=== PATIENT | female | born 1940 | race Caucasian/White ===

== ENCOUNTER 2019-10-09 06:22 | Inpatient (IN) | payer MEDICARE ==
[2019-10-09] MEDS ORDERED: ACETAMINOPHEN TAB 325 MG TAB PO STA (06:26)
[2019-10-09] MEDS ORDERED: SODIUM CHLORIDE 0.9% 500 ML 500 ML IV ONE ×4 (06:26→10:31)
[2019-10-09] MEDS ORDERED: IBUPROFEN 600 MG TAB PO STA (06:26)
[2019-10-09] MEDS ORDERED: IPRATROPIUM-ALBUTEROL 3 ML NEB INHALATION STA (06:27)
[2019-10-09] MEDS ORDERED: MAGNESIUM SULFATE-D5W PMX 1 GM in DEXTROSE/WATER 1 100ML.BAG IVPB ONE (06:28)
--- NOTE | 2019-10-09 06:29 | ED ---
SOB HPI <Kirsten Saunders P - Last Filed: 10/09/19 07:00> <Nahed Machado - Last Filed: 10/09/19 07:41> - General Chief Complaint: Shortness of Breath Stated Complaint: Difficulty breathing Time Seen by Provider: 10/09/19 06:24 - History of Present Illness Initial Comments: 79-year-old female presenting today for chief complaint of shortness of breath increasing x 2 days. History obtained from patient. Limited secondary to patient's dyspnea. Patient states she was short of breath with increased cough, and overall unwell feeling/fatigue. She states she feels warm. Febrile on EMS arrival. Patient denies leg swelling, chest or back pain. Denies nausea, vomiting, diarrhea. Patient was given solumedrol 125mg and 2 duoneb treatments prior to arrival. EMS states patient appeared diaphoretic pale, with increased work of breathing after 2nd breathing treatment (1duoneb, 1 albuterol treatemtn) and patient was placed on CPaP wtih improvement of respiration rate. On arrival patient BP stable, however HR elevated, febrile. Patient normally on 2-3L home oxygen but was no on oxygen when EMS arrived, 85% on RA. (Nahed Machado) - Related Data Allergies Allergy/AdvReac Type Severity Reaction Status Date / Time Penicillins Allergy Unknown Verified 10/09/19 07:38 Review of Systems ROS Other: All systems not noted in ROS Statement are negative. <Kirsten Saunders P - Last Filed: 10/09/19 07:00> ROS Other: All systems not noted in ROS Statement are negative. <Nahed Machado - Last Filed: 10/09/19 07:41> ROS Statement: Those systems with pertinent positive or pertinent negative responses have been documented in the HPI. General Exam <Nahed Machado - Last Filed: 10/09/19 07:41> - General Exam Comments Initial Comments: General: The patient is awake and alert, appears short of breath, increased respiration rate with pursed lips Eye: +3mm pupils are equal, round and reactive to light, extra-ocular movements are intact. No nystagmus. There is normal conjunctiva bilaterally. No signs of icterus. Ears, nose, mouth and throat: There are moist mucous membranes and no oral l esions. Neck: The neck is supple, there is no tenderness or JVD. Cardiovascular: There is a regular rate and rhythm. No murmur, rub or gallop is appreciated. Respiratory: Respiration labored, lung sounds diminished wtih expiratory wheeze, rhonchi. breath sounds present in all haile. No stridor. Gastrointestinal: Soft, non-distended, non-tender abdomen without masses or organomegaly noted. There is no rebound or guarding present. Musculoskeletal: Normal ROM, no tenderness. Strength 5/5. Sensation intact. Radial and DP pulses equal bilaterally 2+. Neurological: A&O x 3. CN II-XII intact grossly, There are no obvious motor or sensory deficits. Coordination appears grossly intact. Speech is normal. Skin: Skin is hot to touch and dry and no rashes or lesions are noted. No LE edema. Psychiatric: Cooperative (Nahed Machado) Course Vital Signs 10/09/19 10/09/19 10/09/19 06:24 06:39 06:54 Temperature 101.1 F H 99.6 F 100.1 F H Pulse Rate 137 H 128 H 121 H Respiratory 38 H 40 H 42 H Rate Blood Pressure 134/74 113/67 110/64 O2 Sat by Pulse 96 96 97 Oximetry 10/09/19 10/09/19 10/09/19 07:03 07:09 07:16 Temperature 100.9 F H Pulse Rate 121 H 120 H 118 H Respiratory 38 H Rate Blood Pressure 102/68 O2 Sat by Pulse 96 Oximetry Medical Decision Making - Lab Data Result diagrams: 10/09/19 06:26 10/09/19 06:26 <Kirsten Saunders - Last Filed: 10/09/19 07:00> - Lab Data Result diagrams: 10/09/19 06:26 10/09/19 06:26 <Nahed Machado - Last Filed: 10/09/19 07:41> - Medical Decision Making Personally saw and evaluated the patient upon arrival to the emergency department. Patient was noted to be in acute respiratory distress, she was transitioned from EMS CPAP to BiPAP. Full septic workup was initiated including influenza swab. Patient was found to be influence a positive with COPD exacerbation. Patient care was discussed with Dr. mittal accepts the admission. Patient will be admitted for COPD exacerbation, hypoxicrespiratory failure secondary to influenza A. (Kirsten Saunders) - Lab Data Lab Results 10/09/19 10/09/19 10/09/19 Range/Units 06:26 06:26 06:26 WBC 12.2 H (3.8-10.6) k/uL RBC 4.92 (3.80-5.40) m/uL Hgb 15.0 (11.4-16.0) gm/dL Hct 47.9 H (34.0-46.0) % MCV 97.4 (80.0-100.0) fL MCH 30.4 (25.0-35.0) pg MCHC 31.2 (31.0-37.0) g/dL RDW 14.4 (11.5-15.5) % Plt Count 237 (150-450) k/uL PT (9.0-12.0) sec INR (<1.2) APTT (22.0-30.0) sec Sodium 136 L (137-145) mmol/L Potassium 4.1 (3.5-5.1) mmol/L Chloride 96 L (98-107) mmol/L Carbon Dioxide 31 H (22-30) mmol/L Anion Gap 9 mmol/L BUN 31 H (7-17) mg/dL Creatinine 1.06 H (0.52-1.04) mg/dL Est GFR (CKD-EPI)AfAm 58 (>60 ml/min/1.73 sqM) Est GFR (CKD-EPI)NonAf 50 (>60 ml/min/1.73 sqM) Glucose 112 H (74-99) mg/dL Plasma Lactic Acid Telly 1.7 (0.7-2.0) mmol/L Calcium 9.1 (8.4-10.2) mg/dL Magnesium 1.5 L (1.6-2.3) mg/dL Total Bilirubin 0.6 (0.2-1.3) mg/dL AST 44 H (14-36) U/L ALT 20 (4-34) U/L Alkaline Phosphatase 72 (38-126) U/L Troponin I (0.000-0.034) ng/mL NT-Pro-B Natriuret Pep pg/mL Total Protein 7.7 (6.3-8.2) g/dL Albumin 4.1 (3.5-5.0) g/dL Influenza Type A RNA (Not Detectd) Influenza Type B (PCR) (Not Detectd) 10/09/19 10/09/19 10/09/19 Range/Units 06:26 06:26 06:26 WBC (3.8-10.6) k/uL RBC (3.80-5.40) m/uL Hgb (11.4-16.0) gm/dL Hct (34.0-46.0) % MCV (80.0-100.0) fL MCH (25.0-35.0) pg MCHC (31.0-37.0) g/dL RDW (11.5-15.5) % Plt Count (150-450) k/uL PT 10.4 (9.0-12.0) sec INR 1.0 (<1.2) APTT 26.1 (22.0-30.0) sec Sodium (137-145) mmol/L Potassium (3.5-5.1) mmol/L Chloride (98-107) mmol/L Carbon Dioxide (22-30) mmol/L Anion Gap mmol/L BUN (7-17) mg/dL Creatinine (0.52-1.04) mg/dL Est GFR (CKD-EPI)AfAm (>60 ml/min/1.73 sqM) Est GFR (CKD-EPI)NonAf (>60 ml/min/1.73 sqM) Glucose (74-99) mg/dL Plasma Lactic Acid Telly (0.7-2.0) mmol/L Calcium (8.4-10.2) mg/dL Magnesium (1.6-2.3) mg/dL Total Bilirubin (0.2-1.3) mg/dL AST (14-36) U/L ALT (4-34) U/L Alkaline Phosphatase (38-126) U/L Troponin I 0.013 (0.000-0.034) ng/mL NT-Pro-B Natriuret Pep 290 pg/mL Total Protein (6.3-8.2) g/dL Albumin (3.5-5.0) g/dL Influenza Type A RNA (Not Detectd) Influenza Type B (PCR) (Not Detectd) 10/09/19 Range/Units 06:26 WBC (3.8-10.6) k/uL RBC (3.80-5.40) m/uL Hgb (11.4-16.0) gm/dL Hct (34.0-46.0) % MCV (80.0-100.0) fL MCH (25.0-35.0) pg MCHC (31.0-37.0) g/dL RDW (11.5-15.5) % Plt Count (150-450) k/uL PT (9.0-12.0) sec INR (<1.2) APTT (22.0-30.0) sec Sodium (137-145) mmol/L Potassium (3.5-5.1) mmol/L Chloride (98-107) mmol/L Carbon Dioxide (22-30) mmol/L Anion Gap mmol/L BUN (7-17) mg/dL Creatinine (0.52-1.04) mg/dL Est GFR (CKD-EPI)AfAm (>60 ml/min/1.73 sqM) Est GFR (CKD-EPI)NonAf (>60 ml/min/1.73 sqM) Glucose (74-99) mg/dL Plasma Lactic Acid Telly (0.7-2.0) mmol/L Calcium (8.4-10.2) mg/dL Magnesium (1.6-2.3) mg/dL Total Bilirubin (0.2-1.3) mg/dL AST (14-36) U/L ALT (4-34) U/L Alkaline Phosphatase (38-126) U/L Troponin I (0.000-0.034) ng/mL NT-Pro-B Natriuret Pep pg/mL Total Protein (6.3-8.2) g/dL Albumin (3.5-5.0) g/dL Influenza Type A RNA Detected H (Not Detectd) Influenza Type B (PCR) Not Detected (Not Detectd) - EKG Data EKG Comments: Initial EKG obtained at 0626; ventricular rate 139 bpm, MA interval 150 ms, QRS duration 80 ms, QT/QTc to 74/416. Sinus tachycardia with noted effusion complexes. Right axis. No appreciated ST elevation or depression. EKG reviewed by my attending provider Dr. Saunders (Nahed Machado) Critical Care Time Critical Care Time: Yes Total Critical Care Time: 30 <Kirsten Saunders - Last Filed: 10/09/19 07:00> Critical Care Time: Critical Care Time Critical care time was exclusive of separately billable procedures and treating other patients and teaching time. Critical care was necessary to treat or prevent imminent or life-threatening deterioration. Given the critical condition in which the patient arrived, the patient was immediately assessed by myself and the nurse, and cardiac monitoring initiated due to the potential for rapid decompensation of the patient's clinical conditi on. During the course of the patients stay, I spent a considerable amount of time at the bedside performing serial re-evaluations of the patient's hemodynamic and clinical status because of the recognized potential threat to life or limb in this condition. I then had a chance to review not only all of the available current laboratory and radiographic studies obtained today, but I also reviewed old records available to me at the time. Additionally, any ancillary information available including product marketer records were reviewed. Sequential vital signs were obtained. (Kirsten Saunders) Disposition Is patient prescribed a controlled substance at d/c from ED?: No <Kirsten Saunders - Last Filed: 10/09/19 07:00> Is patient prescribed a controlled substance at d/c from ED?: No Time of Disposition: 06:58 Decision to Admit Reason: Admit from EC Decision Date: 10/09/19 Decision Time: 06:58 <Nahed Machado - Last Filed: 10/09/19 07:41> Clinical Impression: Influenza A, Dyspnea, COPD exacerbation Disposition: ADMITTED IP TO THIS [facility] Condition: Stable
[2019-10-09 06:48] LABS: HCT 47.9 % (34.0-46.0); MCH 30.4 pg (25.0-35.0); MCHC 31.2 g/dL (31.0-37.0); MCV 97.4 fL (80.0-100.0); Mean Platelet Volume 7.4; Partial Thromboplastin Time 26.1 sec (22.0-30.0); Platelet Count 237 k/uL (150-450); Prothrombin Time 10.4 sec (9.0-12.0); RBC 4.92 m/uL (3.80-5.40); RDW 14.4 % (11.5-15.5); WBC 12.2 k/uL (3.8-10.6)
[2019-10-09 06:50] LABS: Albumin 4.1 g/dL (3.5-5.0); Calcium 9.1 mg/dL (8.4-10.2); Total Bilirubin 0.6 mg/dL (0.2-1.3); Total Protein 7.7 g/dL (6.3-8.2)
[2019-10-09 06:53] LABS: Magnesium 1.5 mg/dL (1.6-2.3); Potassium 4.1 mmol/L (3.5-5.1)
[2019-10-09] MEDS ORDERED: IPRATROPIUM-ALBUTEROL 3 ML NEB INHALATION PRN (06:54)
[2019-10-09] MEDS: IPRATROPIUM-ALBUTEROL 3 ML NEB INHALATION SCH ×5 (06:58→19:25)
[2019-10-09] MEDS ORDERED: OSELTAMIVIR 75 MG CAP PO STA (07:05)
[2019-10-09] MEDS ORDERED: LORazepam 2 MG/ML INJ IV STA (07:05)
--- NOTE | 2019-10-09 07:29 | XR ---
EXAMINATION TYPE: XR chest 1V portable DATE OF EXAM: 10/09/2019 COMPARISON: 02/26/2010 HISTORY: Shortness of breath and fever TECHNIQUE: Single frontal view of the chest is obtained. FINDINGS: Linear probable atelectasis along the right midlung. There is no focal air space opacity, p leural effusion, or pneumothorax seen. There is pulmonary hyperinflation compatible with underlying C OPD. The main pulmonary arteries appear enlarged. The cardiac silhouette size is within normal limit s. The osseous structures are intact. IMPRESSION: 1. Linear probable atelectasis within the right midlung. No new focal consolidation to suggest pneumo julian. 2. Radiographic sequela of COPD. Enlargement of the main pulmonary arteries suggests underlying pulmo nary hypertension.
[2019-10-09] MEDS: SODIUM CHLORIDE 0.9% 1,000 ML IV SCH ×3 (07:30→21:41)
[2019-10-09 07:47] LABS: Band Neutrophils % 5 %; Lymphocytes # (M) 1.22 k/uL (1.0-4.8); Monocytes # (M) 1.46 k/uL (0-1.0); Neutrophils % (M) 73 %; Nucleated Red Blood Cells 0 /100 WBC (0-0); Total Cells Counted 100
[2019-10-09] MEDS ORDERED: SODIUM CHLORIDE 0.9% 1,000 ML IV ONE (09:42)
[2019-10-09] MEDS: PRAVASTATIN SODIUM 20 MG TAB PO SCH (11:51)
[2019-10-09] MEDS: AZITHROMYCIN 500 MG TAB PO SCH (11:51)
[2019-10-09] MEDS: ACETAMINOPHEN TAB 325 MG TAB PO SCH ×4 (11:51→22:52)
[2019-10-09] MEDS: BUDESONIDE 1 MG/2 ML NEBU INHALATION SCH ×2 (12:23→19:24)
[2019-10-09 12:55] LABS: Glucose,Whole Blood 136 mg/dL (75-99)
[2019-10-09] MEDS: ENOXAPARIN 40 MG/0.4 ML SYRINGE SQ SCH (14:33)
[2019-10-09] MEDS: methylPREDNISolone SOD SUCCI 125 MG/2 ML VIAL IV SCH ×2 (14:33→18:08)
[2019-10-09 17:32] LABS: Glucose,Whole Blood 149 mg/dL (75-99)
[2019-10-09] MEDS: INSULIN ASPART (NovoLOG) 100 UNIT/ML VIAL SQ SCH ×2 (18:09→21:35)
[2019-10-09 18:13] LABS: Appearance,Urine Cloudy (Clear); Bacteria,Urine Rare /hpf; Bilirubin,Urine Negative (Negative); Blood,Urine Negative (Negative); Color,Urine Yellow; Glucose,Urine (UA) Negative (Negative); Granular Casts,Urine 4 /lpf (0); Ketones,Urine 1+ (Negative); Leukocyte Esterase,Urine Negative (Negative); Mucus,Urine Rare /hpf; Nitrite,Urine Negative (Negative); PH, Urine 5.5 (5.0-8.0); Protein,Urine 1+ (Negative); Specific Gravity,Urine 1.016 (1.001-1.035); Squamous Epithelial Cell,Urine 1 /hpf (0-4); Urobilinogen,Urine <2.0 mg/dL (<2.0); WBC,Urine 2 /hpf (0-5)
[2019-10-09] MEDS: LATANOPROST 0.005% OPHTH DROPS 2.5 ML BTL BOTH EYES SCH (19:49)
[2019-10-09] MEDS: ALPRAZolam 0.25 MG TAB PO SCH (19:49)
[2019-10-09 20:29] LABS: Glucose,Whole Blood 172 mg/dL (75-99)
--- NOTE | 2019-10-09 22:19 | P.HPIM ---
History of Present Illness H&P Date: 10/09/19 Chief Complaint: Cough shortness of breath History of presenting complaint: This is a pleasant 7-year-old patient of Dr. Lia Lozano. Chronic stable medical conditions include hypertension, hyperlipidemia, osteoarthritis. Patient be short of breath for a few days. Terry a cough. A bit congested. Not relievable bringing up sputum. Has had fevers some chills. Decreased appetite tired rundown. No edema. Checks x-ray revealed infiltrates admitted for pneumonia. Bowels are okay urine is okay. Tired rundown. Patient is significant for short of breath. Requiring a BiPAP. Review of systems: GEN.: Fever or chills tired EYES: None HEENT: None NECK: None RESPIRATORY: As above CARDIOVASCULAR: None GASTROINTESTINAL: None GENITOURINARY: None MUSCULOSKELETAL: Joint pains LYMPHATICS: None HEMATOLOGICAL: None PSYCHIATRY: None NEUROLOGICAL: None Past medical history to include: COPD, hypertension, hyperlipidemia, osteoarthritis Social history: Long-standing smoker, , does use a walker Physical examination: VITAL SIGNS: 101.1, 137, 38, 134/74, 96% on 4 L GENERAL: BMI 25.7, laying in bed awake. EYES: Pupils equal. Conjunctiva normal. HEENT: External appearance of nose and ears normal, oral cavity grossly normal. NECK: JVD not raised; masses not palpable. HEART: First and second heart sounds are normal; no edema. LUNGS: Respiratory rate increased, decreased breath sounds coarse crackles. ABDOMEN: Soft, nontender, liver spleen not palpable, no masses palpable. PSYCH: [Alert and oriented x3; mood and affect slightly anxious. NEUROLOGICAL: Cranial nerves grossly intact; no facial asymmetry, power and sensation grossly intact. LYMPHATICS: No lymph nodes palpable in the axilla and neck MUSCULOSKELETAL: Evidence of OA INVESTIGATIONS, reviewed in the clinical context: White count 12.2 hemoglobin 15 potassium 4.1 bun 31 crit 1.06 Influenza type A positive Assessment: -Acute influenza type A positive -Secondary superimposed bacterial infection possible -Sepsis from above -Acute hypoxic respiratory failure from above requiring BiPAP -Acute severe COPD exacerbation in a current smoker -Hyperlipidemia -Essential hypertension -Primary osteoarthritis -Chronic nicotine dependence cigarette smoker Plan: Patient started and IV Zithromax ceftriaxone. Nebulized bronchodilators every 4 hours. Inhaled and IV steroids.x 1200 mg twice a day. Tamiflu was added. Lovenox for DVT prophylaxis. Home medications are continued. Care was discussed with the patient questions were answered. Smoke cessation counseling: This was done with the patient. Nicotine patch is being given. More than 3 minutes was spent for this - Past Medical History Past Medical History: COPD, Hyperlipidemia History of Any Multi-Drug Resistant Organisms: None Reported Past Surgical History: Orthopedic Surgery Additional Past Surgical History / Comment(s): bilateral knee ,abcess in colon Past Psychological History: No Psychological Hx Reported Smoking Status: Current every day smoker Past Alcohol Use History: None Reported Past Drug Use History: None Reported - Past Family History Father Family Medical History: Cancer, Hypertension Additional Family Medical History / Comment(s): Father had lung cancer with lobectomy. She was a smoker Mother Family Medical History: Diabetes Mellitus, Hypertension Medications and Allergies Home Medications Medication Instructions Recorded Confirmed Type ALPRAZolam [Xanax] 0.25 mg PO HS 10/09/19 10/09/19 History Alendronate Sodium [Fosamax] 70 mg PO Q7D 10/09/19 10/09/19 History Calcium Carbonate/Vitamin D3 2 tab PO DAILY 10/09/19 10/09/19 History [Calcium 500-Vit D3 600 Tablet] Fexofenadine/Pseudoephedrine 1 tab PO RT-DAILY 10/09/19 10/09/19 History [Nayana-D 24 Hour Tablet] Fluticasone/Salmeterol [Advair 2 puff INHALATION RT-BID 10/09/19 10/09/19 History 100-50 Diskus] Hydrochlorothiazide 25 mg PO DAILY 10/09/19 10/09/19 History Ipratropium-Albuterol Nebulize 3 ml INHALATION RT-QID 10/09/19 10/09/19 History [Duoneb 0.5 mg-3 mg/3 ml Soln] Latanoprost/Pf [Latanoprost 0.005% 1 drop BOTH EYES HS 10/09/19 10/09/19 History Eye Drop] Pravastatin Sodium [Pravachol] 20 mg PO DAILY 10/09/19 10/09/19 History Valsartan [Diovan] 160 mg PO DAILY 10/09/19 10/09/19 History predniSONE 3 mg PO DAILY 10/09/19 10/09/19 History Allergies Allergy/AdvReac Type Severity Reaction Status Date / Time Penicillins Allergy Unknown Verified 10/09/19 07:38 Physical Exam Vitals: Vital Signs Temp Pulse Resp BP Pulse Ox 10/09/19 10:42 86 87/54 96 10/09/19 10:36 90 10/09/19 10:29 83 10/09/19 09:44 90 24 87/52 94 L 10/09/19 07:16 118 H 10/09/19 07:09 100.9 F H 120 H 38 H 102/68 96 10/09/19 07:03 121 H 10/09/19 06:54 100.1 F H 121 H 42 H 110/64 97 10/09/19 06:39 99.6 F 128 H 40 H 113/67 96 10/09/19 06:24 101.1 F H 137 H 38 H 134/74 96 Intake and Output 10/08/19 10/09/19 10/09/19 22:59 06:59 14:59 Other: Weight 68.039 kg Results CBC & Chem 7: 10/09/19 06:26 10/09/19 06:26 Labs: Abnormal Lab Results - Last 24 Hours (Table) 10/09/19 10/09/19 10/09/19 Range/Units 06:26 06:26 06:26 WBC 12.2 H (3.8-10.6) k/uL Hct 47.9 H (34.0-46.0) % Neutrophils # (Manual) 9.50 H (1.3-7.7) k/uL Monocytes # (Manual) 1.46 H (0-1.0) k/uL Sodium 136 L (137-145) mmol/L Chloride 96 L (98-107) mmol/L Carbon Dioxide 31 H (22-30) mmol/L BUN 31 H (7-17) mg/dL Creatinine 1.06 H (0.52-1.04) mg/dL Glucose 112 H (74-99) mg/dL Magnesium 1.5 L (1.6-2.3) mg/dL AST 44 H (14-36) U/L Influenza Type A RNA Detected H (Not Detectd)
[2019-10-09] MEDS: guaiFENesin 600 MG TABLET.ER PO SCH (22:52)
[2019-10-09] MEDS: methylPREDNISolone SOD SUCCI 40 MG/ML 1 ML VIAL IV SCH (22:52)
[2019-10-09] MEDS: OSELTAMIVIR 75 MG CAP PO SCH (22:52)
[2019-10-10] MEDS: IPRATROPIUM-ALBUTEROL 3 ML NEB INHALATION SCH ×6 (00:18→20:32)
[2019-10-10] MEDS: ACETAMINOPHEN TAB 325 MG TAB PO SCH ×6 (02:20→22:35)
[2019-10-10 06:18] LABS: Glucose,Whole Blood 238 mg/dL (75-99)
[2019-10-10 06:21] LABS: HCT 42.1 % (34.0-46.0); Hypochromasia Slight; MCH 30.9 pg (25.0-35.0); MCHC 30.8 g/dL (31.0-37.0); MCV 100.4 fL (80.0-100.0); Macrocytosis Slight; Mean Platelet Volume 7.6; Platelet Count 196 k/uL (150-450); RBC 4.19 m/uL (3.80-5.40); RDW 14.4 % (11.5-15.5); WBC 8.7 k/uL (3.8-10.6)
[2019-10-10] MEDS: INSULIN ASPART (NovoLOG) 100 UNIT/ML VIAL SQ SCH ×4 (06:32→21:27)
[2019-10-10 06:34] LABS: Calcium 7.4 mg/dL (8.4-10.2); Potassium 3.6 mmol/L (3.5-5.1)
[2019-10-10] MEDS: BUDESONIDE 1 MG/2 ML NEBU INHALATION SCH ×2 (07:00→20:32)
[2019-10-10] MEDS: guaiFENesin 600 MG TABLET.ER PO SCH ×2 (10:28→21:27)
[2019-10-10] MEDS: AZITHROMYCIN 500 MG TAB PO SCH (10:28)
[2019-10-10] MEDS: OSELTAMIVIR 75 MG CAP PO SCH ×2 (10:28→21:27)
[2019-10-10] MEDS: PRAVASTATIN SODIUM 20 MG TAB PO SCH (10:29)
[2019-10-10] MEDS: methylPREDNISolone SOD SUCCI 40 MG/ML 1 ML VIAL IV SCH ×3 (10:29→23:29)
[2019-10-10] MEDS: LORATADINE-PSEUDOEPH 5-120 MG 1 EACH TAB.ER.12H PO SCH ×2 (10:29→21:28)
[2019-10-10] MEDS: ENOXAPARIN 40 MG/0.4 ML SYRINGE SQ SCH (10:29)
[2019-10-10 11:48] LABS: Glucose,Whole Blood 91 mg/dL (75-99)
[2019-10-10 13:40] VITALS: BMI 27.3
[2019-10-10] MEDS: SODIUM CHLORIDE 0.9% 1,000 ML IV SCH ×2 (14:28→22:37)
[2019-10-10 16:45] LABS: Glucose,Whole Blood 119 mg/dL (75-99)
--- NOTE | 2019-10-10 19:12 | XR ---
EXAMINATION TYPE: XR chest 2V DATE OF EXAM: 10/10/2019 COMPARISON: 10/09/2019 HISTORY: Difficulty breathing TECHNIQUE: 2 views. Heart is normal. There is some linear density in the anterior right upper lobe. There is no pleural e ffusion. Thoracic aorta is atheromatous. There is no heart failure. There is no pleural effusion. Bon y thorax is intact. IMPRESSION: There is some right upper lobe scarring or subsegmental atelectasis unchanged. Normal hea rt. No heart failure seen.
[2019-10-10 20:44] LABS: Glucose,Whole Blood 145 mg/dL (75-99)
[2019-10-10] MEDS ORDERED: DRY MOUTH SPRAY 44.3 SPRAY/44.3 ML SPRAY MUCOUS MEM PRN (21:23)
[2019-10-10] MEDS: ALPRAZolam 0.25 MG TAB PO SCH (21:27)
[2019-10-10] MEDS: LATANOPROST 0.005% OPHTH DROPS 2.5 ML BTL BOTH EYES SCH (21:28)
--- NOTE | 2019-10-10 22:52 | P.PN ---
Progress Note - Text Progress Note Date: 10/10/19 Chief Complaint: Cough shortness of breath interval history: This is a pleasant 79-year-old patient of Dr. Lia Lozano. Chronic stable medical conditions include hypertension, hyperlipidemia, osteoarthritis. Patient be short of breath for a few days. significant cough. A bit congested. Not rarely bringing up sputum. Has had fevers some chills. Decreased appetite tired rundown. No edema. Checks x-ray revealed infiltrates admitted for pneumonia. Bowels are okay urine is okay. Tired rundown. Patient is significant for short of breath. Requiring a BiPAP. admitted with diagnosis of acute influenza type A, possibly superimposed bacterial infection, sepsis, acute hypoxic respiratory failure requiring BiPAP, severe COPD exacerbation. Today-off the BiPAP. Using a nasal cannula. Elaine better. Decreased oral intake. short of breath at rest. Able to speak a few words. Review of systems: Was done for constitutional, cardiovascular, GI, pulmonary. relevant finding as above Active Medications Acetaminophen (Tylenol Tab) 650 mg PO Q4H [facility] Last Admin: 10/10/19 22:35 Dose: 650 mg Documented by: Albuterol/Ipratropium (Duoneb 0.5 Mg-3 Mg/3 Ml Soln) 3 ml INHALATION RT-Q4H PRN PRN Reason: Shortness Of Breath Or Wheezing Albuterol/Ipratropium (Duoneb 0.5 Mg-3 Mg/3 Ml Soln) 3 ml INHALATION RT-Q4H [facility] Last Admin: 10/10/19 20:32 Dose: 3 ml Documented by: Alprazolam (Xanax) 0.25 mg PO HS [facility] Last Admin: 10/10/19 21:27 Dose: 0.25 mg Documented by: Azithromycin (Zithromax) 500 mg PO DAILY [facility] Last Admin: 10/10/19 10:28 Dose: 500 mg Documented by: Budesonide (Pulmicort) 1 mg INHALATION RT-BID [facility] Last Admin: 10/10/19 20:32 Dose: 1 mg Documented by: Enoxaparin Sodium (Lovenox) 40 mg SQ DAILY [facility] Last Admin: 10/10/19 10:29 Dose: 40 mg Documented by: Guaifenesin (Mucinex) 1,200 mg PO Q12HR [facility] Last Admin: 10/10/19 21:27 Dose: 1,200 mg Documented by: Sodium Chloride (Saline 0.9%) 1,000 mls @ 100 mls/hr IV .Q10H [facility] Last Admin: 10/10/19 22:37 Dose: 100 mls/hr Documented by: Insulin Aspart (Novolog) 0 unit SQ ACHS [facility]; Protocol Last Admin: 10/10/19 21:27 Dose: 2 unit Documented by: Latanoprost (Xalatan 0.005%) 1 drops BOTH EYES HS [facility] Last Admin: 10/10/19 21:28 Dose: 1 drops Documented by: Loratadine/Pseudoephedrine Sulfate (Claritin-D 12 Hr) 1 each PO BID [facility] Last Admin: 10/10/19 21:28 Dose: 1 each Documented by: Methylprednisolone Sodium Succinate (Solu-Medrol) 40 mg IV Q8HR [facility] Last Admin: 10/10/19 16:55 Dose: 40 mg Documented by: Oseltamivir Phosphate (Tamiflu) 75 mg PO Q12HR [facility] Stop: 10/14/19 09:01 Last Admin: 10/10/19 21:27 Dose: 75 mg Documented by: Pravastatin Sodium (Pravachol) 20 mg PO DAILY [facility] Last Admin: 10/10/19 10:29 Dose: 20 mg Documented by: Saliva Substitute (Mouthkote Solution) 1 spray MUCOUS MEM QID PRN PRN Reason: Dry Mouth Physical examination: VITAL SIGNS: 97.6, 95, 20, 101/56, 97% on 3 L GENERAL:propped up, nasal cannula, shortness of breath, tired EYES: Pupils equal. Conjunctiva normal. HEENT: External appearance of nose and ears normal, oral cavity grossly normal. NECK: JVD not raised; masses not palpable. HEART: First and second heart sounds are normal; no edema. LUNGS: Respiratory rate increased, decreased breath sounds coarse crackles. prolonged expiration, ecstasy muscles awoken, unable to speak in full sentences ABDOMEN: Soft, nontender, liver spleen not palpable, no masses palpable. PSYCH: [Alert and oriented x3; mood and affect anxious MUSCULOSKELETAL: Evidence of OA INVESTIGATIONS, reviewed in the clinical context: White count 12.2 hemoglobin 15 potassium 4.1 bun 31 crit 1.06 Influenza type A positive Assessment: -Acute influenza type A positive -Secondary superimposed bacterial infection possible -Sepsis from above -Acute hypoxic respiratory failure from above requiring BiPAPinitially, no nasal cannula -Acute severe COPD exacerbation in a current smoker, slow to respond -Hyperlipidemia -Essential hypertension -Primary osteoarthritis -Chronic nicotine dependence cigarette smoker Plan: gettingIV Zithromax ceftriaxone. Nebulized bronchodilators every 4 hours. Inhaled and IV steroids.x, Tamiflu . Care was discussed the patient. Questions were answered. continue with other treatment and oxygen supplementation. -
[2019-10-11] MEDS: IPRATROPIUM-ALBUTEROL 3 ML NEB INHALATION SCH ×7 (00:31→23:38)
[2019-10-11] MEDS: ACETAMINOPHEN TAB 325 MG TAB PO SCH ×6 (06:16→22:01)
[2019-10-11 06:21] LABS: Glucose,Whole Blood 111 mg/dL (75-99)
[2019-10-11] MEDS: INSULIN ASPART (NovoLOG) 100 UNIT/ML VIAL SQ SCH ×4 (06:33→22:00)
[2019-10-11] MEDS: BUDESONIDE 1 MG/2 ML NEBU INHALATION SCH ×2 (07:40→19:54)
[2019-10-11] MEDS: OSELTAMIVIR 75 MG CAP PO SCH (08:52)
[2019-10-11] MEDS: guaiFENesin 600 MG TABLET.ER PO SCH ×2 (08:52→21:57)
[2019-10-11] MEDS: PRAVASTATIN SODIUM 20 MG TAB PO SCH (08:52)
[2019-10-11] MEDS: AZITHROMYCIN 500 MG TAB PO SCH (08:52)
[2019-10-11] MEDS: methylPREDNISolone SOD SUCCI 40 MG/ML 1 ML VIAL IV SCH ×3 (08:52→23:34)
[2019-10-11] MEDS: ENOXAPARIN 40 MG/0.4 ML SYRINGE SQ SCH (08:52)
[2019-10-11] MEDS: LORATADINE-PSEUDOEPH 5-120 MG 1 EACH TAB.ER.12H PO SCH ×2 (08:53→21:59)
[2019-10-11 11:46] LABS: Glucose,Whole Blood 177 mg/dL (75-99)
[2019-10-11] MEDS: SODIUM CHLORIDE 0.9% 1,000 ML IV SCH (12:19)
--- NOTE | 2019-10-11 17:04 | P.PN ---
Progress Note - Text Progress Note Date: 10/11/19 Chief Complaint: Cough shortness of breath interval history: This is a pleasant 79-year-old patient of Dr. Lia Lozano. Chronic stable medical conditions include hypertension, hyperlipidemia, osteoarthritis. Patient be short of breath for a few days. significant cough. A bit congested. Not rarely bringing up sputum. Has had fevers some chills. Decreased appetite tired rundown. No edema. Checks x-ray revealed infiltrates admitted for pneumonia. Bowels are okay urine is okay. Tired rundown. Patient is significant for short of breath. Requiring a BiPAP. admitted with diagnosis of acute influenza type A, possibly superimposed bacterial infection, sepsis, acute hypoxic respiratory failure requiring BiPAP, severe COPD exacerbation. Today-on nasal cannula. She short of breath at rest. A bit congested chest. Eating better. About 75%. Tired.. Review of systems: Was done for constitutional, cardiovascular, GI, pulmonary. relevant finding as above Active Medications Acetaminophen (Tylenol Tab) 650 mg PO Q4H [facility] Last Admin: 10/11/19 14:57 Dose: 650 mg Documented by: Albuterol/Ipratropium (Duoneb 0.5 Mg-3 Mg/3 Ml Soln) 3 ml INHALATION RT-Q4H PRN PRN Reason: Shortness Of Breath Or Wheezing Albuterol/Ipratropium (Duoneb 0.5 Mg-3 Mg/3 Ml Soln) 3 ml INHALATION RT-Q4H [facility] Last Admin: 10/11/19 15:57 Dose: 3 ml Documented by: Alprazolam (Xanax) 0.25 mg PO HS [facility] Last Admin: 10/10/19 21:27 Dose: 0.25 mg Documented by: Azithromycin (Zithromax) 500 mg PO DAILY [facility] Last Admin: 10/11/19 08:52 Dose: 500 mg Documented by: Budesonide (Pulmicort) 1 mg INHALATION RT-BID [facility] Last Admin: 10/11/19 07:40 Dose: 1 mg Documented by: Enoxaparin Sodium (Lovenox) 40 mg SQ DAILY [facility] Last Admin: 10/11/19 08:52 Dose: 40 mg Documented by: Guaifenesin (Mucinex) 1,200 mg PO Q12HR [facility] Last Admin: 10/11/19 08:52 Dose: 1,200 mg Documented by: Sodium Chloride (Saline 0.9%) 1,000 mls @ 100 mls/hr IV .Q10H [facility] Last Admin: 10/11/19 12:19 Dose: Not Given Documented by: Insulin Aspart (Novolog) 0 unit SQ ACHS [facility]; Protocol Last Admin: 10/11/19 12:44 Dose: 4 unit Documented by: Latanoprost (Xalatan 0.005%) 1 drops BOTH EYES HS [facility] Last Admin: 10/10/19 21:28 Dose: 1 drops Documented by: Loratadine/Pseudoephedrine Sulfate (Claritin-D 12 Hr) 1 each PO BID [facility] Last Admin: 10/11/19 08:53 Dose: 1 each Documented by: Methylprednisolone Sodium Succinate (Solu-Medrol) 40 mg IV Q8HR [facility] Last Admin: 10/11/19 08:52 Dose: 40 mg Documented by: Oseltamivir Phosphate (Tamiflu) 30 mg PO Q12HR [facility] Stop: 10/13/19 21:01 Pravastatin Sodium (Pravachol) 20 mg PO DAILY [facility] Last Admin: 10/11/19 08:52 Dose: 20 mg Documented by: Saliva Substitute (Mouthkote Solution) 1 spray MUCOUS MEM QID PRN PRN Reason: Dry Mouth Physical examination: VITAL SIGNS: 98.3, 72, 20, 120/58, 98% on 2.5 L GENERAL: Sitting up. Nasal, R, short of breath at rest EYES: Pupils equal. Conjunctiva normal. HEENT: External appearance of nose and ears normal, oral cavity grossly normal. NECK: JVD not raised; masses not palpable. HEART: First and second heart sounds are normal; no edema. LUNGS: Respiratory rate increased, decreased breath sounds coarse crackles. prolonged expiration, ABDOMEN: Soft, nontender, liver spleen not palpable, no masses palpable. PSYCH: [Alert and oriented x3; mood and affect anxious MUSCULOSKELETAL: Evidence of OA INVESTIGATIONS, reviewed in the clinical context: White count 12.2 hemoglobin 15 potassium 4.1 bun 31 crit 1.06 Influenza type A positive Assessment: -Acute influenza type A positive -Secondary superimposed bacterial infection possible -Sepsis from above -Acute hypoxic respiratory failure from above requiring BiPAPinitially, on nasal cannula -Acute severe COPD exacerbation in a current smoker, slowly improving -Hyperlipidemia -Essential hypertension -Primary osteoarthritis -Chronic nicotine dependence cigarette smoker Plan: -IV Zithromax ceftriaxone. Nebulized bronchodilators every 4 hours. Inhaled and IV steroids.x, Tamiflu . Discussed the patient. Expected to be of further work 2 days. The patient slowly improving. Has advanced COPD.
[2019-10-11 17:13] LABS: Glucose,Whole Blood 115 mg/dL (75-99)
[2019-10-11 21:24] LABS: Glucose,Whole Blood 145 mg/dL (75-99)
[2019-10-11] MEDS: ALPRAZolam 0.25 MG TAB PO SCH (21:57)
[2019-10-11] MEDS: OSELTAMIVIR 60 MG/10 ML ORAL SYRINGE PO SCH (21:58)
[2019-10-11] MEDS: LATANOPROST 0.005% OPHTH DROPS 2.5 ML BTL BOTH EYES SCH (21:59)
[2019-10-12] MEDS: SODIUM CHLORIDE 0.9% 1,000 ML IV SCH ×3 (00:39→17:14)
[2019-10-12] MEDS: IPRATROPIUM-ALBUTEROL 3 ML NEB INHALATION SCH ×5 (04:19→21:06)
[2019-10-12] MEDS: ACETAMINOPHEN TAB 325 MG TAB PO SCH ×6 (05:31→21:02)
[2019-10-12 06:22] LABS: Glucose,Whole Blood 116 mg/dL (75-99)
[2019-10-12] MEDS: INSULIN ASPART (NovoLOG) 100 UNIT/ML VIAL SQ SCH ×4 (06:42→21:01)
[2019-10-12] MEDS: BUDESONIDE 1 MG/2 ML NEBU INHALATION SCH ×2 (07:05→21:06)
[2019-10-12] MEDS: methylPREDNISolone SOD SUCCI 40 MG/ML 1 ML VIAL IV SCH ×2 (08:38→17:04)
[2019-10-12] MEDS: AZITHROMYCIN 500 MG TAB PO SCH (08:39)
[2019-10-12] MEDS: guaiFENesin 600 MG TABLET.ER PO SCH ×2 (08:39→21:00)
[2019-10-12] MEDS: OSELTAMIVIR 60 MG/10 ML ORAL SYRINGE PO SCH ×2 (08:40→21:00)
[2019-10-12] MEDS: LORATADINE-PSEUDOEPH 5-120 MG 1 EACH TAB.ER.12H PO SCH ×2 (08:40→21:01)
[2019-10-12] MEDS: ENOXAPARIN 40 MG/0.4 ML SYRINGE SQ SCH (08:40)
[2019-10-12] MEDS: PRAVASTATIN SODIUM 20 MG TAB PO SCH (08:40)
[2019-10-12 12:17] LABS: Glucose,Whole Blood 122 mg/dL (75-99)
[2019-10-12 16:31] LABS: Glucose,Whole Blood 110 mg/dL (75-99)
[2019-10-12] MEDS: FUROSEMIDE 10 MG/ML 2 ML VIAL IV ONE ×2 (16:44→17:05)
[2019-10-12] MEDS ORDERED: FUROSEMIDE 10 MG/ML 2 ML VIAL IV ONE (19:00)
[2019-10-12 20:31] LABS: Glucose,Whole Blood 115 mg/dL (75-99)
[2019-10-12] MEDS: ALPRAZolam 0.25 MG TAB PO SCH (21:07)
[2019-10-12] MEDS: LATANOPROST 0.005% OPHTH DROPS 2.5 ML BTL BOTH EYES SCH (21:07)
--- NOTE | 2019-10-12 21:10 | P.PN ---
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 Chronic stable medical conditions include hypertension, hyperlipidemia, osteoarthritis. Patient be short of breath for a few days. significant cough. A bit congested. Not rarely bringing up sputum. Has had fevers some chills. Decreased appetite tired rundown. No edema. Checks x-ray revealed infiltrates admitted for pneumonia. Bowels are okay urine is okay. Tired rundown. Patient is significant for short of breath. Requiring a BiPAP. admitted with diagnosis of acute influenza type A, possibly superimposed bacterial infection, sepsis, acute hypoxic respiratory failure requiring BiPAP, severe COPD exacerbation. Today-on nasal cannula. Feeling a bit better. A bit less short of breath. Oral intake is improving. Edema. Getting IV fluids. Review of systems: Was done for constitutional, cardiovascular, GI, pulmonary. relevant finding as above Active Medications Acetaminophen (Tylenol Tab) 650 mg PO Q4H [facility] Last Admin: 10/12/19 21:02 Dose: Not Given Documented by: Albuterol/Ipratropium (Duoneb 0.5 Mg-3 Mg/3 Ml Soln) 3 ml INHALATION RT-Q4H PRN PRN Reason: Shortness Of Breath Or Wheezing Albuterol/Ipratropium (Duoneb 0.5 Mg-3 Mg/3 Ml Soln) 3 ml INHALATION RT-Q4H [facility] Last Admin: 10/12/19 21:06 Dose: 3 ml Documented by: Alprazolam (Xanax) 0.25 mg PO HS [facility] Last Admin: 10/12/19 21:07 Dose: 0.25 mg Documented by: Azithromycin (Zithromax) 500 mg PO DAILY [facility] Last Admin: 10/12/19 08:39 Dose: 500 mg Documented by: Budesonide (Pulmicort) 1 mg INHALATION RT-BID [facility] Last Admin: 10/12/19 21:06 Dose: 1 mg Documented by: Enoxaparin Sodium (Lovenox) 40 mg SQ DAILY [facility] Last Admin: 10/12/19 08:40 Dose: 40 mg Documented by: Guaifenesin (Mucinex) 1,200 mg PO Q12HR [facility] Last Admin: 10/12/19 21:00 Dose: 1,200 mg Documented by: Insulin Aspart (Novolog) 0 unit SQ ACHS [facility]; Protocol Last Admin: 10/12/19 21:01 Dose: Not Given Documented by: Latanoprost (Xalatan 0.005%) 1 drops BOTH EYES HS [facility] Last Admin: 10/12/19 21:07 Dose: 1 drops Documented by: Loratadine/Pseudoephedrine Sulfate (Claritin-D 12 Hr) 1 each PO BID [facility] Last Admin: 10/12/19 21:01 Dose: 1 each Documented by: Methylprednisolone Sodium Succinate (Solu-Medrol) 40 mg IV Q8HR [facility] Last Admin: 10/12/19 17:04 Dose: 40 mg Documented by: Oseltamivir Phosphate (Tamiflu) 30 mg PO Q12HR [facility] Stop: 10/13/19 21:01 Last Admin: 10/12/19 21:00 Dose: 30 mg Documented by: Pravastatin Sodium (Pravachol) 20 mg PO DAILY [facility] Last Admin: 10/12/19 08:40 Dose: 20 mg Documented by: Saliva Substitute (Mouthkote Solution) 1 spray MUCOUS MEM QID PRN PRN Reason: Dry Mouth Physical examination: VITAL SIGNS: 97.5, 100, 18, 131/76, 94% on 3 L GENERAL: Sitting up. Nasal cannula,, short of breath at rest EYES: Pupils equal. Conjunctiva normal. HEENT: External appearance of nose and ears normal, oral cavity grossly normal. NECK: JVD not raised; masses not palpable. HEART: First and second heart sounds are normal; no edema. LUNGS: Respiratory rate increased, decreased breath sounds coarse crackles. prolonged expiration, ABDOMEN: Soft, nontender, liver spleen not palpable, no masses palpable. PSYCH: [Alert and oriented x3; mood and affect anxious MUSCULOSKELETAL: Evidence of OA INVESTIGATIONS, reviewed in the clinical context: White count 12.2 hemoglobin 15 potassium 4.1 bun 31 crit 1.06 Influenza type A positive Assessment: -Acute influenza type A positive -Secondary superimposed bacterial infection possible -Acute fluid overload including edema from IV fluids -Sepsis from above -Acute hypoxic respiratory failure from above requiring BiPAPinitially, on nasal cannula -Acute severe COPD exacerbation in a current smoker, slowly improving -Hyperlipidemia -Essential hypertension -Primary osteoarthritis -Chronic nicotine dependence cigarette smoker Plan: . IV fluids. Give Low doses of IV Lasix 20 mg. Patient is some clinical improvement. Switch to oral prednisone in the morning and oral antibiotics. Hopefully can be discharged home tomorrow depending how she does overnight.
[2019-10-13] MEDS: IPRATROPIUM-ALBUTEROL 3 ML NEB INHALATION SCH ×5 (00:02→15:28)
[2019-10-13] MEDS: methylPREDNISolone SOD SUCCI 40 MG/ML 1 ML VIAL IV SCH ×2 (00:27→10:45)
[2019-10-13] MEDS: ACETAMINOPHEN TAB 325 MG TAB PO SCH ×4 (04:51→17:10)
[2019-10-13 06:21] LABS: Glucose,Whole Blood 117 mg/dL (75-99)
[2019-10-13 06:33] LABS: Calcium 7.9 mg/dL (8.4-10.2); Potassium 4.7 mmol/L (3.5-5.1)
[2019-10-13] MEDS: INSULIN ASPART (NovoLOG) 100 UNIT/ML VIAL SQ SCH ×2 (06:54→12:38)
--- NOTE | 2019-10-13 09:09 | XR ---
EXAMINATION TYPE: XR chest 2V DATE OF EXAM: 10/13/2019 COMPARISON: 10/10/2019 TECHNIQUE: PA and lateral views submitted. HISTORY: Cough difficulty breathing FINDINGS: Right hilum is prominent there is a coarsened interstitium right basilar infiltrate and small effusio n. Hypertrophic and degenerative change spine. No pneumothorax. IMPRESSION: 1. Right basilar infiltrate and small effusion correlate for pneumonia. 2. Prominent right hilum. Could reflect enlarged pulmonary artery and pulmonary arterial hypertension . Adenopathy not excluded recommend CT chest. 3. Correlate for chronic interstitial lung disease. Interstitial pneumonitis or venous congestion in the differential diagnosis.
[2019-10-13] MEDS: BUDESONIDE 1 MG/2 ML NEBU INHALATION SCH (09:15)
[2019-10-13] MEDS: guaiFENesin 600 MG TABLET.ER PO SCH (10:45)
[2019-10-13] MEDS: AZITHROMYCIN 500 MG TAB PO SCH (10:45)
[2019-10-13] MEDS: LORATADINE-PSEUDOEPH 5-120 MG 1 EACH TAB.ER.12H PO SCH (10:46)
[2019-10-13] MEDS: PRAVASTATIN SODIUM 20 MG TAB PO SCH (10:46)
[2019-10-13] MEDS: OSELTAMIVIR 60 MG/10 ML ORAL SYRINGE PO SCH (10:46)
[2019-10-13] MEDS: ENOXAPARIN 40 MG/0.4 ML SYRINGE SQ SCH (10:47)
[2019-10-13 12:31] LABS: Glucose,Whole Blood 116 mg/dL (75-99)
[2019-10-13 13:50] VITALS: BP 133/71; PULSE 86; RESP 16; TEMP 98
--- NOTE | 2019-10-15 23:48 | P.DS ---
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 Chronic stable medical conditions include hypertension, hyperlipidemia, osteoarthritis. Patient be short of breath for a few days. significant cough. A bit congested. Not rarely bringing up sputum. Has had fevers some chills. Decreased appetite tired rundown. No edema. Checks x-ray revealed infiltrates admitted for pneumonia. Bowels are okay urine is okay. Tired rundown. Patient is significant for short of breath. Requiring a BiPAP. admitted with diagnosis of acute influenza type A, possibly superimposed bacterial infection, sepsis, acute hypoxic respiratory failure requiring BiPAP, severe COPD exacerbation. Responded well to bronchodilators, steroids, Tamiflu. Doing much better before discharge. Care was discussed. Advised against smoking. Patient is rather advanced lung disease. Discussion and discharge planning more than 35 minutes Physical examination: VITAL SIGNS: 98, 86, 16, 133/71, 94% on 3 L GENERAL: Sitting up. Nasal cannula,, more comfortable EYES: Pupils equal. Conjunctiva normal. HEENT: External appearance of nose and ears normal, oral cavity grossly normal. NECK: JVD not raised; masses not palpable. HEART: First and second heart sounds are normal; no edema. LUNGS: Respiratory rate increased, decreased breath sounds, ABDOMEN: Soft, nontender, liver spleen not palpable, no masses palpable. PSYCH: [Alert and oriented x3; mood and affect anxious MUSCULOSKELETAL: Evidence of OA INVESTIGATIONS, reviewed in the clinical context: Potassium 4.7 creatinine 0.85 White count 12.2 hemoglobin 15 potassium 4.1 bun 31 crit 1.06 Influenza type A positive Assessment: -Acute influenza type A positive, POA -Secondary superimposed bacterial infection possible -Acute fluid overload including edema from IV fluids, improved -Sepsis from above, POA -Acute hypoxic respiratory failure from above requiring BiPAPinitially, on nasal cannula, POA -Acute severe COPD exacerbation in a current smoker, slowly improving -Hyperlipidemia -Essential hypertension -Primary osteoarthritis -Chronic nicotine dependence cigarette smoker -Chronic hypoxic respiratory failure, from COPD Disposition: Home Plan - Discharge Summary Discharge Rx Participant: No New Discharge Prescriptions: New Chlorthalidone [Hygroton] 25 mg PO DAILY #30 tablet guaiFENesin [Mucinex] 1,200 mg PO Q12HR #30 tablet.er predniSONE 10 mg PO DAILY #30 tab Budesonide [Pulmicort] 1 mg INHALATION RT-BID #60 nebu Oseltamivir 6Mg/ml Oral Susp [Tamiflu] 30 mg PO Q12HR #10 oral.syrg Continue ALPRAZolam [Xanax] 0.25 mg PO HS Pravastatin Sodium [Pravachol] 20 mg PO DAILY Latanoprost/Pf [Latanoprost 0.005% Eye Drop] 1 drop BOTH EYES HS Ipratropium-Albuterol Nebulize [Duoneb 0.5 mg-3 mg/3 ml Soln] 3 ml INHALATION RT-QID Valsartan [Diovan] 160 mg PO DAILY Alendronate Sodium [Fosamax] 70 mg PO Q7D Fexofenadine/Pseudoephedrine [Nayana-D 24 Hour Tablet] 1 tab PO RT-DAILY Calcium Carbonate/Vitamin D3 [Calcium 500-Vit D3 600 Tablet] 2 tab PO DAILY Fluticasone/Salmeterol [Advair 100-50 Diskus] 2 puff INHALATION RT-BID Discontinued predniSONE 3 mg PO DAILY Hydrochlorothiazide 25 mg PO DAILY Discharge Medication List ALPRAZolam [Xanax] 0.25 mg PO HS 10/09/19 [History] Alendronate Sodium [Fosamax] 70 mg PO Q7D 10/09/19 [History] Calcium Carbonate/Vitamin D3 [Calcium 500-Vit D3 600 Tablet] 2 tab PO DAILY 09/27 12/14 [History] Fexofenadine/Pseudoephedrine [Nayana-D 24 Hour Tablet] 1 tab PO RT-DAILY 10/09/19 [History] Fluticasone/Salmeterol [Advair 100-50 Diskus] 2 puff INHALATION RT-BID 10/09/19 [History] Ipratropium-Albuterol Nebulize [Duoneb 0.5 mg-3 mg/3 ml Soln] 3 ml INHALATION RT-QID 10/09/19 [History] Latanoprost/Pf [Latanoprost 0.005% Eye Drop] 1 drop BOTH EYES HS 10/09/19 [History] Pravastatin Sodium [Pravachol] 20 mg PO DAILY 10/09/19 [History] Valsartan [Diovan] 160 mg PO DAILY 10/09/19 [History] Budesonide [Pulmicort] 1 mg INHALATION RT-BID #60 nebu 10/13/19 [Rx] Chlorthalidone [Hygroton] 25 mg PO DAILY #30 tablet 10/13/19 [Rx] Oseltamivir 6Mg/ml Oral Susp [Tamiflu] 30 mg PO Q12HR #10 oral.syrg 10/13/19 [Rx] guaiFENesin [Mucinex] 1,200 mg PO Q12HR #30 tablet.er 10/13/19 [Rx] predniSONE 10 mg PO DAILY #30 tab 10/13/19 [Rx] Follow up Appointment(s)/Referral(s): Femi Lozano DO [Primary Care Provider] - 10/23/19 9:15 am Patient Instructions/Handouts: Influenza (DC) Activity/Diet/Wound Care/Special Instructions: [place] [facility] for housekeeping: #[phone] Discharge Disposition: HOME SELF-CARE
== END 2019-10-13 16:30 | disposition home or self-care (01) | DRG 871 ==
LOC: EC 06:22 → 3SCARD 06:59
PROVIDERS: ADMIT Hospitalist; ATTEND Hospitalist
PROC: 5A09357 Assistance with Respiratory Ventilation, Less than 24 Consecutive Hours, Continuous Positive Airway Pressure (ICD-10-PCS; principal; 2019-10-09)
DX: A41.9 Sepsis, unspecified organism (principal); J10.00 Influenza due to other identified influenza virus with unspecified type of pneumonia; J96.21 Acute and chronic respiratory failure with hypoxia; J44.0 Chronic obstructive pulmonary disease with (acute) lower respiratory infection; J44.1 Chronic obstructive pulmonary disease with (acute) exacerbation; M19.91 Primary osteoarthritis, unspecified site; E78.5 Hyperlipidemia, unspecified; E87.70 Fluid overload, unspecified; Z71.6 Tobacco abuse counseling; F17.210 Nicotine dependence, cigarettes, uncomplicated; I10 Essential (primary) hypertension; Z79.83 Long term (current) use of bisphosphonates; Z79.899 Other long term (current) drug therapy; Z80.1 Family history of malignant neoplasm of trachea, bronchus and lung; Z82.49 Family history of ischemic heart disease and other diseases of the circulatory system; Z83.3 Family history of diabetes mellitus; Z99.81 Dependence on supplemental oxygen; Z88.0 Allergy status to penicillin
CPT/HCPCS: 36415; 71045; 71046; 80048; 80053; 81001; 83605; 83655; 83735; 83880; 84484; 85025; 85027; 85610; 85730; 87040; 87502; 93005; 94640; 94660; 94760; 96361; 96365; 96367; 96375; 99291

== ENCOUNTER 2020-10-21 20:26 | Inpatient (IN) | payer MEDICARE ==
[2020-10-21] MEDS ORDERED: IPRATROPIUM 0.5 MG/2.5 ML NEBU INHALATION STA ×3 (20:31→22:05)
[2020-10-21] MEDS ORDERED: DEXAMETHASONE SOD PHOSPHATE 10 MG/ML 1 ML VIAL IV STA (20:31)
[2020-10-21] MEDS ORDERED: ALBUTEROL NEBULIZED 2.5 MG/3 ML INHALATION STA ×3 (20:31→22:05)
[2020-10-21] MEDS ORDERED: AZITHROMYCIN 500 MG in SODIUM CHLORIDE 0.9% 250 ML IVPB STA (20:33)
[2020-10-21] MEDS ORDERED: SODIUM CHLORIDE 0.9% 1,000 ML IV STA (20:50)
--- NOTE | 2020-10-21 20:53 | ED ---
General Adult HPI - General Chief complaint: Shortness of Breath Stated complaint: Difficulty Breathing Time Seen by Provider: 10/21/20 20:31 Source: EMS Mode of arrival: EMS Limitations: no limitations - History of Present Illness Initial comments: Dictation was produced using [employer] dictation software. please excuse any grammatical, word or spelling errors. This patient was cared for during a federal and state declared state of emergency secondary to Covid 19 Chief Complaint: 80-year-old feel presents with dyspnea History of Present Illness: And 80-year-old female she was brought in for dyspnea. Patient is unable to breathe and unable to provide detailed in HPI. EMS reports that over the last few days she's been short of breath. She's been more and more short of breath progressively. Today. Her symptoms was increased worse prompting contacting EMS. According to EMS patient had an oxygen saturation of 75%. They provided her with CPAP. Patient has extensive history of COPD. Unable to obtain secondary to patient's clinical status. PHYSICAL EXAM: General Impression: Alert, severely dyspneic HEENT: Normocephalic atraumatic, extra-ocular movements intact, pupils equal and reactive to light bilaterally, dry mucous membranes Cardiovascular: Tachycardic Chest: 2 word sentences, retractions, air hungry, tachypneic, poor air exchange with auscultation of the lungs Abdomen: abdomen soft, non-tender, non-distended, no organomegaly Musculoskeletal: Pulses present and equal in all extremities, no peripheral edema Motor: no focal deficits noted Neurological: CN II-XII grossly intact, no focal motor or sensory deficits noted Skin: Intact with no visualized rashes ED course: 80 Old female presents to the emergency department for severe dyspnea. Signs upon arrival shows heart rate of 144, respiratory rate of 38, 93% on 15 L nonrebreather. Patient placed immediately in trauma bay 2. BiPAP was applied. Plan care bedside ultrasound showed a lines. Along with poor air exchange clinical presentation consistent with severe COPD exacerbation. Patient ordered for 10 mg of albuterol, 0.5 mg of Atrovent, 10 mg IV of Decadron. Laboratory evaluation obtained. Leukocytosis of 16.3. Coag panel is unrem arkable. D-dimer 0.77 this is negative according to age-adjusted d-dimer. Her care blood gas shows patient 7.28, pCO2 of 69, bicarb of 32. Metabolic panel shows bicarb of 34 no anion gap acidosis. BUN of 26. Chronic virus is negative. Clinical presentation consistent with severe COPD exacerbation with respiratory acidosis. Patient given 2 rounds breathing treatments with improvement. She is reevaluated approximately 10 PM with improvement. Her heart rate and respiratory rate is more improved. She feels improved and is no longer tripoding. This point we will hold off on intubation. Case discussed with Dr. 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 Patient be admitted to the ICU for COPD treatment. Case discussed with Dr. Mosley who is willing to accept patients care and to the intensive care unit. EKG interpretation: Ventricular rate 120, sinus tachycardia,. Interval 192, QRS 90, QTc 435. No [place] prolongation, no QTC prolongation, no ST or T-wave changes noted. EKG compared to 03/09/2020 showing no changes. Overall, this EKG is unremarkable - Related Data Home Medications Medication Instructions Recorded Confirmed ALPRAZolam [Xanax] 0.25 mg PO HS 10/09/19 10/09/19 Alendronate Sodium [Fosamax] 70 mg PO Q7D 10/09/19 10/09/19 Calcium Carbonate/Vitamin D3 2 tab PO DAILY 10/09/19 10/09/19 [Calcium 500-Vit D3 15 Mcg (600 Iu)] Fexofenadine/Pseudoephedrine 1 tab PO RT-DAILY 10/09/19 10/09/19 [Nayana-D 24 Hour Tablet] Fluticasone/Salmeterol [Advair 2 puff INHALATION RT-BID 10/09/19 10/09/19 100-50 Diskus] Ipratropium-Albuterol Nebulize 3 ml INHALATION RT-QID 10/09/19 10/09/19 [Duoneb 0.5 mg-3 mg/3 ml Soln] Latanoprost/Pf [Latanoprost 0.005% 1 drop BOTH EYES HS 10/09/19 10/09/19 Eye Drop] Pravastatin Sodium [Pravachol] 20 mg PO DAILY 10/09/19 10/09/19 Valsartan [Diovan] 160 mg PO DAILY 10/09/19 10/09/19 Previous Rx's Medication Instructions Recorded Budesonide [Pulmicort] 1 mg INHALATION RT-BID #60 nebu 10/13/19 Chlorthalidone [Hygroton] 25 mg PO DAILY #30 tablet 10/13/19 Oseltamivir 6Mg/ml Oral Susp 30 mg PO Q12HR #10 oral.syrg 10/13/19 [Tamiflu] guaiFENesin [Mucinex] 1,200 mg PO Q12HR #30 tablet.er 10/13/19 predniSONE 10 mg PO DAILY #30 tab 10/13/19 Allergies Allergy/AdvReac Type Severity Reaction Status Date / Time Penicillins Allergy Unknown Verified 10/09/19 07:38 Review of Systems ROS Statement: Those systems with pertinent positive or pertinent negative responses have been documented in the HPI. ROS Other: All systems not noted in ROS Statement are negative. 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 She was a smoker Mother Family Medical History: Diabetes Mellitus, Hypertension General Exam Limitations: no limitations Course Vital Signs 10/21/20 10/21/20 10/21/20 20:30 20:33 20:45 Temperature 98.1 F Pulse Rate 144 H 130 H Respiratory 38 H 36 H Rate Blood Pressure 175/109 O2 Sat by Pulse 93 L Oximetry 10/21/20 10/21/20 10/21/20 20:48 21:11 21:12 Temperature Pulse Rate 131 H 131 H 130 H Respiratory 40 H 44 H Rate Blood Pressure 157/88 132/92 O2 Sat by Pulse 97 97 Oximetry 10/21/20 10/21/20 10/21/20 21:27 21:35 21:50 Temperature Pulse Rate 130 H 128 H 124 H Respiratory Rate Blood Pressure O2 Sat by Pulse Oximetry 10/21/20 21:56 Temperature 98.5 F Pulse Rate 125 H Respiratory 37 H Rate Blood Pressure 109/56 O2 Sat by Pulse 97 Oximetry Medical Decision Making - Lab Data Result diagrams: 10/21/20 20:47 10/21/20 20:47 Lab Results 10/21/20 10/21/20 10/21/20 Range/Units 20:47 20:47 20:47 WBC 16.3 H (3.8-10.6) k/uL RBC 5.45 H (3.80-5.40) m/uL Hgb 15.5 (11.4-16.0) gm/dL Hct 47.0 H (34.0-46.0) % MCV 86.3 (80.0-100.0) fL MCH 28.5 (25.0-35.0) pg MCHC 33.0 (31.0-37.0) g/dL RDW 14.8 (11.5-15.5) % Plt Count 372 (150-450) k/uL MPV 7.0 Neutrophils % 68 % Lymphocytes % 21 % Monocytes % 6 % Eosinophils % 2 % Basophils % 1 % Neutrophils # 11.1 H (1.3-7.7) k/uL Lymphocytes # 3.4 (1.0-4.8) k/uL Monocytes # 1.0 (0-1.0) k/uL Eosinophils # 0.3 (0-0.7) k/uL Basophils # 0.2 (0-0.2) k/uL PT 9.9 (9.0-12.0) sec INR 0.9 (<1.2) APTT 24.7 (22.0-30.0) sec D-Dimer 0.77 H (<0.60) mg/L FEU Sample Site ABG pH (7.35-7.45) ABG pCO2 (35-45) mmHg ABG pO2 (83-108) mmHg ABG HCO3 (21-25) mmol/L ABG Total CO2 (19-24) mmol/L ABG O2 Saturation (94-97) % ABG Base Excess mmol/L Campos Test FiO2 % Sodium 140 (137-145) mmol/L Potassium 4.4 (3.5-5.1) mmol/L Chloride 96 L (98-107) mmol/L Carbon Dioxide 34 H (22-30) mmol/L Anion Gap 10 mmol/L BUN 26 H (7-17) mg/dL Creatinine 0.94 (0.52-1.04) mg/dL Est GFR (CKD-EPI)AfAm 66 (>60 ml/min/1.73 sqM) Est GFR (CKD-EPI)NonAf 57 (>60 ml/min/1.73 sqM) Glucose 155 H (74-99) mg/dL Plasma Lactic Acid Telly (0.7-2.0) mmol/L Calcium 9.8 (8.4-10.2) mg/dL Magnesium 2.1 (1.6-2.3) mg/dL Total Bilirubin 0.3 (0.2-1.3) mg/dL AST 27 (14-36) U/L ALT 17 (4-34) U/L Alkaline Phosphatase 114 (38-126) U/L Troponin I (0.000-0.034) ng/mL Total Protein 8.3 H (6.3-8.2) g/dL Albumin 4.5 (3.5-5.0) g/dL Coronavirus (PCR) (Not Detectd) 10/21/20 10/21/20 10/21/20 Range/Units 20:47 20:47 20:47 WBC (3.8-10.6) k/uL RBC (3.80-5.40) m/uL Hgb (11.4-16.0) gm/dL Hct (34.0-46.0) % MCV (80.0-100.0) fL MCH (25.0-35.0) pg MCHC (31.0-37.0) g/dL RDW (11.5-15.5) % Plt Count (150-450) k/uL MPV Neutrophils % % Lymphocytes % % Monocytes % % Eosinophils % % Basophils % % Neutrophils # (1.3-7.7) k/uL Lymphocytes # (1.0-4.8) k/uL Monocytes # (0-1.0) k/uL Eosinophils # (0-0.7) k/uL Basophils # (0-0.2) k/uL PT (9.0-12.0) sec INR (<1.2) APTT (22.0-30.0) sec D-Dimer (<0.60) mg/L FEU Sample Site ABG pH (7.35-7.45) ABG pCO2 (35-45) mmHg ABG pO2 (83-108) mmHg ABG HCO3 (21-25) mmol/L ABG Total CO2 (19-24) mmol/L ABG O2 Saturation (94-97) % ABG Base Excess mmol/L Campos Test FiO2 % Sodium (137-145) mmol/L Potassium (3.5-5.1) mmol/L Chloride (98-107) mmol/L Carbon Dioxide (22-30) mmol/L Anion Gap mmol/L BUN (7-17) mg/dL Creatinine (0.52-1.04) mg/dL Est GFR (CKD-EPI)AfAm (>60 ml/min/1.73 sqM) Est GFR (CKD-EPI)NonAf (>60 ml/min/1.73 sqM) Glucose (74-99) mg/dL Plasma Lactic Acid Telly 1.5 (0.7-2.0) mmol/L Calcium (8.4-10.2) mg/dL Magnesium (1.6-2.3) mg/dL Total Bilirubin (0.2-1.3) mg/dL AST (14-36) U/L ALT (4-34) U/L Alkaline Phosphatase (38-126) U/L Troponin I <0.012 (0.000-0.034) ng/mL Total Protein (6.3-8.2) g/dL Albumin (3.5-5.0) g/dL Coronavirus (PCR) Not Detected (Not Detectd) 10/21/20 Range/Units 21:02 WBC (3.8-10.6) k/uL RBC (3.80-5.40) m/uL Hgb (11.4-16.0) gm/dL Hct (34.0-46.0) % MCV (80.0-100.0) fL MCH (25.0-35.0) pg MCHC (31.0-37.0) g/dL RDW (11.5-15.5) % Plt Count (150-450) k/uL MPV Neutrophils % % Lymphocytes % % Monocytes % % Eosinophils % % Basophils % % Neutrophils # (1.3-7.7) k/uL Lymphocytes # (1.0-4.8) k/uL Monocytes # (0-1.0) k/uL Eosinophils # (0-0.7) k/uL Basophils # (0-0.2) k/uL PT (9.0-12.0) sec INR (<1.2) APTT (22.0-30.0) sec D-Dimer (<0.60) mg/L FEU Sample Site RAD ABG pH 7.28 L (7.35-7.45) ABG pCO2 69 H (35-45) mmHg ABG pO2 >400 H (83-108) mmHg ABG HCO3 32 H (21-25) mmol/L ABG Total CO2 34 H (19-24) mmol/L ABG O2 Saturation 100.0 H (94-97) % ABG Base Excess 5.1 mmol/L Campos Test Yes FiO2 100 % Sodium (137-145) mmol/L Potassium (3.5-5.1) mmol/L Chloride (98-107) mmol/L Carbon Dioxide (22-30) mmol/L Anion Gap mmol/L BUN (7-17) mg/dL Creatinine (0.52-1.04) mg/dL Est GFR (CKD-EPI)AfAm (>60 ml/min/1.73 sqM) Est GFR (CKD-EPI)NonAf (>60 ml/min/1.73 sqM) Glucose (74-99) mg/dL Plasma Lactic Acid Telly (0.7-2.0) mmol/L Calcium (8.4-10.2) mg/dL Magnesium (1.6-2.3) mg/dL Total Bilirubin (0.2-1.3) mg/dL AST (14-36) U/L ALT (4-34) U/L Alkaline Phosphatase (38-126) U/L Troponin I (0.000-0.034) ng/mL Total Protein (6.3-8.2) g/dL Albumin (3.5-5.0) g/dL Coronavirus (PCR) (Not Detectd) Critical Care Time Critical Care Time: Yes Total Critical Care Time: 33 Disposition Clinical Impression: COPD exacerbation, Respiratory failure Disposition: ADMITTED IP TO THIS [facility] Condition: Critical Referrals: Femi Lozano DO [Primary Care Provider] - 1-2 days Decision Time: 22:14
[2020-10-21 20:58] LABS: Basophils # (A) 0.2 k/uL (0-0.2); Basophils % (A) 1 %; Eosinophils # (A) 0.3 k/uL (0-0.7); Eosinophils % (A) 2 %; HGB 15.5 gm/dL (11.4-16.0); Lymphocytes # (A) 3.4 k/uL (1.0-4.8); Lymphocytes % (A) 21 %; MCH 28.5 pg (25.0-35.0); MCV 86.3 fL (80.0-100.0); Monocytes % (A) 6 %; Neutrophils # (A) 11.1 k/uL (1.3-7.7); Neutrophils % (A) 68 %; Platelet Count 372 k/uL (150-450); RBC 5.45 m/uL (3.80-5.40); RDW 14.8 % (11.5-15.5); WBC 16.3 k/uL (3.8-10.6)
[2020-10-21 21:05] LABS: ABG Base Excess 5.1 mmol/L; ABG HCO3 32 mmol/L (21-25); ABG PCO2 69 mmHg (35-45); ABG PH 7.28 (7.35-7.45); ABG PO2 >400 mmHg (83-108); ABG TCO2 34 mmol/L (19-24); Allen Test Performed? Yes
--- NOTE | 2020-10-21 21:08 | XR ---
EXAMINATION TYPE: XR chest 1V portable DATE OF EXAM: 10/21/2020 COMPARISON: 10/13/2019 HISTORY: Pneumonia short of breath. TECHNIQUE: FINDINGS: There is some coarsening of interstitial markings. Heart size is normal. There are no hilar masses. Thoracic aorta shows mild atheromatous change. There are chest leads. IMPRESSION: Pulmonary interstitial fibrotic changes. There is some clearing of the mild pulmonary int erstitial edema compared to old exam.
[2020-10-21 21:11] LABS: Albumin 4.5 g/dL (3.5-5.0); Calcium 9.8 mg/dL (8.4-10.2); Magnesium 2.1 mg/dL (1.6-2.3); Potassium 4.4 mmol/L (3.5-5.1); Total Bilirubin 0.3 mg/dL (0.2-1.3); Total Protein 8.3 g/dL (6.3-8.2)
[2020-10-21 21:14] LABS: INR 0.9 (<1.2); Partial Thromboplastin Time 24.7 sec (22.0-30.0); Prothrombin Time 9.9 sec (9.0-12.0)
[2020-10-21 21:15] LABS: D-Dimer 0.77 mg/L FEU (<0.60)
[2020-10-21] MEDS ORDERED: NALOXONE 0.4 MG/ML 1 ML VIAL IV PRN (23:18)
[2020-10-21 23:41] LABS: Glucose,Whole Blood 222 mg/dL (75-99)
[2020-10-22] MEDS: methylPREDNISolone SOD SUCCI 125 MG/2 ML VIAL IV SCH ×4 (00:05→17:55)
[2020-10-22] MEDS: ALPRAZolam 0.25 MG TAB PO PRN ×3 (00:05→21:57)
[2020-10-22] MEDS: INSULIN ASPART (NovoLOG) 100 UNIT/ML VIAL SQ SCH ×4 (00:05→17:55)
[2020-10-22 05:45] LABS: Glucose,Whole Blood 160 mg/dL (75-99)
[2020-10-22] MEDS ORDERED: INSULIN ASPART (NovoLOG) 100 UNIT/ML VIAL SQ SCH (07:30)
[2020-10-22] MEDS: BUDESONIDE 1 MG/2 ML NEBU INHALATION SCH ×2 (07:54→20:51)
[2020-10-22] MEDS: IPRATROPIUM-ALBUTEROL 3 ML NEB INHALATION SCH ×7 (07:54→23:18)
[2020-10-22] MEDS ORDERED: SYMBICORT 80-4.5 MCG INHALER INHALATION SCH (08:00)
[2020-10-22] MEDS: PRAVASTATIN SODIUM 20 MG TAB PO SCH (08:45)
[2020-10-22] MEDS: hydroCHLOROthiazide 25 MG TAB PO SCH (08:45)
[2020-10-22] MEDS: LOSARTAN 50 MG TAB PO SCH (08:45)
[2020-10-22] MEDS: LATANOPROST 0.005% OPHTH DROPS 2.5 ML BTL BOTH EYES SCH ×2 (08:56→22:06)
[2020-10-22] MEDS: PANTOPRAZOLE 40 MG TABLET PO SCH (08:56)
[2020-10-22] MEDS: DOXYCYCLINE 100 MG CAP PO SCH ×2 (08:56→21:58)
[2020-10-22] MEDS: ENOXAPARIN 40 MG/0.4 ML SYRINGE SQ SCH (08:56)
[2020-10-22] MEDS ORDERED: CALCIUM CARB-VIT D 500 MG-5 MCG TAB PO SCH (09:00)
[2020-10-22 11:38] LABS: Glucose,Whole Blood 111 mg/dL (75-99)
--- NOTE | 2020-10-22 13:51 | P.CNPUL ---
History of Present Illness Consult date: 10/22/20 Reason for consult: COPD Chief complaint: Shortness of breath History of present illness: This is an 80-year-old female with known history of severe COPD, FEV1 is in the range of 33%, patient has cold stage IV COPD, normally sees Dr. Almonte for her underlying COPD. Patient is O2 dependent, maintained normally at 2 L of oxygen via nasal cannula 19/04. Patient is also on prednisone, maintained on 3 mg daily, however she is on prednisone mostly for polymyalgia rheumatica. Patient has a [id number] smoking history. Maintained on bronchodilators in the form of Advair, she is also on DuoNeb updrafts 4 times a day and when necessary, patient is also known to have history of secondary pulmonary hypertension secon rafaela to her underlying COPD. Her other medical problems include glaucoma, hypertension, dyslipidemia, and benign essential hypertension. Patient is also known to have history of ALLERGIC rhinitis, maintained on Nayana. Patient presented to the ER last night with 1 day history of increased shortness of breath, intermittent cough, wheezing, and upon arrival the patient had to be placed on BiPAP, her ABG upon presentation showed a pO2 of over 400, pCO2 of 69, pH of 7.28. Patient was placed on 28% FiO2, and BiPAP /, and she was admitted to the ICU. I evaluated the patient early this morning, patient was already transitioned to a nasal cannula at 2 L, seems to be doing much better, breathing a lot easier, denies any worsening of her symptoms since last night, as a matter of fact she is feeling better. Chest x-ray showed no evidence of infiltrate. Patient had chronic pulmonary minimal fibrotic changes. No acute infiltrate was noted. Patient had a bit of leukocytosis with WBC count of 16.3, hemoglobin is 15.5. PCR for alonzo virus was negative. After reviewing the patient in the ICU, I recommended that she remains on bronchodilators, steroids, I also recommended transferring the patient out of the ICU to a regular medical floor. Review of Systems Constitutional: Generalized weakness, chronic aches and pains. No fever no chills. HEENT: History of ALLERGIC rhinitis. Presently under control. History of glaucoma. Pulmonary: As noted in HPI. Cardiac: Negative. GI: Negative. Genitourinary: Negative. Musculoskeletal: History of polymyalgia rheumatica, maintained on prednisone at 3 mg daily. Neurologic: Negative. Endocrine: Negative. Hematologic: Negative. Psychiatric: Generalized anxiety Skin: Negative. 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 She uses a rolling walker. She has home oxygen/nebulizer. She drives. Smoking Status: Current some day smoker Past Alcohol Use History: None Reported Additional Past Alcohol Use History / Comment(s): Pt started smoking in 6 and is a ppd smoker. Past Drug Use History: None Reported - Past Family History Father Family Medical History: Cancer, Hypertension Additional Family Medical History / Comment(s): Father had lung cancer with lobectomy. She was a smoker Mother Family Medical History: Diabetes Mellitus, Hypertension Medications and Allergies Home Medications Medication Instructions Recorded Confirmed Type ALPRAZolam [Xanax] 0.25 mg PO BID PRN 10/09/19 10/21/20 History Calcium Carbonate/Vitamin D3 1 tab PO DAILY 10/09/19 10/21/20 History [Calcium 500-Vit D3 15 Mcg (600 Iu)] Fluticasone/Salmeterol [Advair 2 puff INHALATION RT-BID 10/09/19 10/21/20 History 100-50 Diskus] Ipratropium-Albuterol Nebulize 3 ml INHALATION RT-QID 10/09/19 10/21/20 History [Duoneb 0.5 mg-3 mg/3 ml Soln] Latanoprost/Pf [Latanoprost 0.005% 1 drop BOTH EYES HS 10/09/19 10/21/20 History Eye Drop] Pravastatin Sodium [Pravachol] 20 mg PO DAILY 10/09/19 10/21/20 History Budesonide [Pulmicort] 1 mg INHALATION RT-BID #60 nebu 10/13/19 10/21/20 Rx Losartan Potassium [Cozaar] 50 mg PO DAILY 10/21/20 10/21/20 History hydroCHLOROthiazide [Hydrodiuril] 25 mg PO DAILY 10/21/20 10/21/20 History predniSONE 3 mg PO DAILY 10/21/20 10/21/20 History Allergies Allergy/AdvReac Type Severity Reaction Status Date / Time Penicillins Allergy Unknown Verified 10/21/20 22:24 Physical Exam Vitals: Vital Signs Temp Pulse Resp BP Pulse Ox 10/22/20 13:08 98 10/22/20 09:00 98.4 F 97 21 105/60 93 L 10/22/20 08:09 94 10/22/20 08:00 86 29 H 107/66 95 10/22/20 07:54 90 10/22/20 07:00 109 H 28 H 113/70 90 L 10/22/20 06:00 125 H 25 H 102/55 92 L 10/22/20 05:00 91 16 92/52 92 L 10/22/20 04:00 98 F 93 23 91/51 90 L 10/22/20 03:52 92 L 10/22/20 03:00 92 15 100/56 92 L 10/22/20 02:00 96 20 106/63 90 L 10/22/20 01:00 101 H 27 H 110/59 90 L 10/22/20 00:00 97.9 F 112 H 29 H 125/74 91 L 10/21/20 23:00 108 H 10/21/20 22:35 98.3 F 123 H 36 H 105/69 98 10/21/20 22:30 120 H 10/21/20 22:14 120 H 10/21/20 22:13 122 H 10/21/20 21:56 98.5 F 125 H 37 H 109/56 97 10/21/20 21:50 124 H 10/21/20 21:35 128 H 10/21/20 21:27 130 H 10/21/20 21:12 130 H 10/21/20 21:11 131 H 44 H 132/92 97 10/21/20 20:48 131 H 40 H 157/88 97 10/21/20 20:45 130 H 10/21/20 20:33 36 H 10/21/20 20:30 98.1 F 144 H 38 H 175/109 93 L Intake and Output 10/21/20 10/22/20 10/22/20 22:59 06:59 14:59 Output Total 150 0 Balance -150 0 Output: Urine 150 0 Other: Voiding Method Bedside Commode # Voids 0 1 Weight 70.307 kg 75.3 kg Physical Exam: Revealed 80-year-old female in no distress. Head: Atraumatic, normocephalic. HEENT:[Neck is supple.] [No neck masses.] [No thyromegaly.] [No JVD.] Chest: [Symmetrical chest expansion, diminished breath sounds at the bases, occasional wheezing more so on forced expiratory maneuver.] Cardiac Exam: [Normal S1 and S2, no S3 gallop, no murmur.] Abdomen: [Soft, nontender, no megaly, no rebound, no guarding, normal bowel sounds.] Extremities: [No clubbing, no edema, no cyanosis.] Good pulses bilaterally. Neurological Exam: [No focal neurologic deficit.] Alert and oriented 3. Psychiatric: Slightly anxious, normal affect, and normal mental status exam ination. Skin: No rashes. Musculoskeletal: No deformities and no limitation in range of motion. Results - Laboratory Findings CBC and BMP: 10/21/20 20:47 10/21/20 20:47 ABG ABG pH 7.28 (7.35-7.45) L 10/21/20 21:02 ABG pCO2 69 mmHg (35-45) H 10/21/20 21:02 ABG pO2 >400 mmHg (83-108) H 10/21/20 21:02 ABG O2 Saturation 100.0 % (94-97) H 10/21/20 21:02 PT/INR, D-dimer PT 9.9 sec (9.0-12.0) 10/21/20 20:47 INR 0.9 (<1.2) 10/21/20 20:47 D-Dimer 0.77 mg/L FEU (<0.60) H 10/21/20 20:47 Abnormal lab findings: Abnormal Labs 10/21/20 10/21/20 10/21/20 20:47 20:47 20:47 WBC 16.3 H RBC 5.45 H Hct 47.0 H Neutrophils # 11.1 H D-Dimer 0.77 H ABG pH ABG pCO2 ABG pO2 ABG HCO3 ABG Total CO2 ABG O2 Saturation Chloride 96 L Carbon Dioxide 34 H BUN 26 H Glucose 155 H POC Glucose (mg/dL) Total Protein 8.3 H 10/21/20 10/21/20 10/22/20 21:02 23:39 05:43 WBC RBC Hct Neutrophils # D-Dimer ABG pH 7.28 L ABG pCO2 69 H ABG pO2 >400 H ABG HCO3 32 H ABG Total CO2 34 H ABG O2 Saturation 100.0 H Chloride Carbon Dioxide BUN Glucose POC Glucose (mg/dL) 222 H 160 H Total Protein 10/22/20 11:36 WBC RBC Hct Neutrophils # D-Dimer ABG pH ABG pCO2 ABG pO2 ABG HCO3 ABG Total CO2 ABG O2 Saturation Chloride Carbon Dioxide BUN Glucose POC Glucose (mg/dL) 111 H Total Protein - Diagnostic Findings Chest x-ray: image reviewed (As noted in HPI.) Assessment and Plan Assessment: Impression: Acute on chronic hypercapnic history failure Acute exacerbation of COPD Chronic hypoxic respiratory failure, patient is maintained on home oxygen at 2 L/m. History of polymyalgia rheumatica. History of glaucoma. Benign essential hypertension. Seasonal ALLERGIC rhinitis. Dyslipidemia. History of osteoporosis. Recommendation: Continue oxygen. Continue bronchodilators as ordered. Continue Solu-Medrol. Continue GI and DVT prophylaxis. Continue doxycycline. Resume home meds. Transfer patient out of the ICU to regular medical floor. We'll continue to follow. Time with Patient: Greater than 30
[2020-10-22 17:12] LABS: Glucose,Whole Blood 170 mg/dL (75-99)
[2020-10-22 20:02] LABS: Glucose,Whole Blood 173 mg/dL (75-99)
--- NOTE | 2020-10-22 20:46 | P.HPIM ---
History of Present Illness H&P Date: 10/22/20 Chief Complaint: Short of breath History of presenting complaint: This is a pleasant 80-year-old patient of Dr. Lia Lozano. Chronic stable medical conditions include hypertension, hyperlipidemia, osteoarthritis, chronic hypoxic respiratory failure.. Long-standing smoker. Patient presents with progressively short of breath. Getting very easily short winded with anything. Has to sit down and get her strength and went back. Wheezing. Slight cough. No fever no chills. Appetite has gone down. Tired. Patient is quite a bit of respiratory compromise initially was put in ICU. Patient is put on a BiPAP. She responded well overnight. Getting better this morning. Review of systems: GEN.: Tired EYES: None HEENT: None NECK: None RESPIRATORY: As above CARDIOVASCULAR: None GASTROINTESTINAL: None GENITOURINARY: None MUSCULOSKELETAL: Joint pains LYMPHATICS: None HEMATOLOGICAL: None PSYCHIATRY: None NEUROLOGICAL: None Past medical history to include: COPD, hypertension, hyperlipidemia, osteoarthritis, chronic hypoxic respiratory failure Social history: Long-standing smoker, , does use a walker Physical examination: VITAL SIGNS: 98.1, 140, 38, 1 5788, 97% on BiPAP-upon presentation GENERAL: Sitting at the edge of the bed, short of breath. Accessory muscles of working EYES: Pupils equal. Conjunctiva normal. HEENT: External appearance of nose and ears normal, oral cavity grossly normal. NECK: JVD not raised; masses not palpable. HEART: First and second heart sounds are normal; no edema. LUNGS: Notable to speak full sentences, Respiratory rate increased, poor air entry, prolonged expiration ABDOMEN: Soft, nontender, liver spleen not palpable, no masses palpable. PSYCH: [Alert and oriented x3; mood and affect slightly anxious. NEUROLOGICAL: Cranial nerves grossly intact; no facial asymmetry, power and sensation grossly intact. LYMPHATICS: No lymph nodes palpable in the axilla and neck MUSCULOSKELETAL: Evidence of OA INVESTIGATIONS, reviewed in the clinical context: White count 16.3 hemoglobin 15.5 platelets 372 Potassium 4.4 creatinine 0.94 line ABG pH 7.28 pCO2 69 EKG tracing personally reviewed by me-poor LV progression, low voltage Chest x-ray film personally reviewed by me-portable. Some chronic changes hyperinflation Assessment: --Acute severe COPD exacerbation in a current smoker, POA -Acute hypoxic and hypercarbic respiratory failure from above requiring BiPAP initially, -Hyperlipidemia -Essential hypertension -Primary osteoarthritis -Chronic nicotine dependence cigarette smoker -Chronic hypoxic respiratory failure, from COPD Plan: Patient is placed on bronchodilators, steroids, initially placed on BiPAP. Home medications resumed. DVT prophylaxis. Nicotine patch. Pulmonary consulted. Initially admitted to the ICU. 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 She uses a rolling walker. She has home oxygen/nebulizer. She drives. Smoking Status: Current some day smoker Past Alcohol Use History: None Reported Additional Past Alcohol Use History / Comment(s): Pt started smoking in 1957 and is a ppd smoker. Past Drug Use History: None Reported - Past Family History Father Family Medical History: Cancer, Hypertension Additional Family Medical History / Comment(s): Father had lung cancer with lobectomy. She was a smoker Mother Family Medical History: Diabetes Mellitus, Hypertension Medications and Allergies Home Medications Medication Instructions Recorded Confirmed Type ALPRAZolam [Xanax] 0.25 mg PO BID PRN 10/09/19 10/21/20 History Calcium Carbonate/Vitamin D3 1 tab PO DAILY 10/09/19 10/21/20 History [Calcium 500-Vit D3 15 Mcg (600 Iu)] Fluticasone/Salmeterol [Advair 2 puff INHALATION RT-BID 10/09/19 10/21/20 History 100-50 Diskus] Ipratropium-Albuterol Nebulize 3 ml INHALATION RT-QID 10/09/19 10/21/20 History [Duoneb 0.5 mg-3 mg/3 ml Soln] Latanoprost/Pf [Latanoprost 0.005% 1 drop BOTH EYES HS 10/09/19 10/21/20 History Eye Drop] Pravastatin Sodium [Pravachol] 20 mg PO DAILY 10/09/19 10/21/20 History Budesonide [Pulmicort] 1 mg INHALATION RT-BID #60 nebu 10/13/19 10/21/20 Rx Losartan Potassium [Cozaar] 50 mg PO DAILY 10/21/20 10/21/20 History hydroCHLOROthiazide [Hydrodiuril] 25 mg PO DAILY 10/21/20 10/21/20 History predniSONE 3 mg PO DAILY 10/21/20 10/21/20 History Allergies Allergy/AdvReac Type Severity Reaction Status Date / Time Penicillins Allergy Unknown Verified 10/21/20 22:24 Physical Exam Vitals: Vital Signs Temp Pulse Resp BP Pulse Ox 10/22/20 09:00 98.4 F 97 21 105/60 93 L 10/22/20 08:09 94 10/22/20 08:00 86 29 H 107/66 95 10/22/20 07:54 90 10/22/20 07:00 109 H 28 H 113/70 90 L 10/22/20 06:00 125 H 25 H 102/55 92 L 10/22/20 05:00 91 16 92/52 92 L 10/22/20 04:00 98 F 93 23 91/51 90 L 10/22/20 03:52 92 L 10/22/20 03:00 92 15 100/56 92 L 10/22/20 02:00 96 20 106/63 90 L 10/22/20 01:00 101 H 27 H 110/59 90 L 10/22/20 00:00 97.9 F 112 H 29 H 125/74 91 L 10/21/20 23:00 108 H 10/21/20 22:35 98.3 F 123 H 36 H 105/69 98 10/21/20 22:30 120 H 10/21/20 22:14 120 H 10/21/20 22:13 122 H 10/21/20 21:56 98.5 F 125 H 37 H 109/56 97 10/21/20 21:50 124 H 10/21/20 21:35 128 H 10/21/20 21:27 130 H 10/21/20 21:12 130 H 10/21/20 21:11 131 H 44 H 132/92 97 10/21/20 20:48 131 H 40 H 157/88 97 10/21/20 20:45 130 H 01/25/21 20:33 36 H 10/21/20 20:30 98.1 F 144 H 38 H 175/109 93 L Intake and Output 10/21/20 10/22/20 10/22/20 22:59 06:59 14:59 Output Total 150 0 Balance -150 0 Output: Urine 150 0 Other: Voiding Method Bedside Commode # Voids 0 1 Weight 70.307 kg 75.3 kg Results CBC & Chem 7: 10/21/20 20:47 10/21/20 20:47 Labs: Abnormal Lab Results - Last 24 Hours (Table) 10/21/20 10/21/20 10/21/20 Range/Units 20:47 20:47 20:47 WBC 16.3 H (3.8-10.6) k/uL RBC 5.45 H (3.80-5.40) m/uL Hct 47.0 H (34.0-46.0) % Neutrophils # 11.1 H (1.3-7.7) k/uL D-Dimer 0.77 H (<0.60) mg/L FEU ABG pH (7.35-7.45) ABG pCO2 (35-45) mmHg ABG pO2 (83-108) mmHg ABG HCO3 (21-25) mmol/L ABG Total CO2 (19-24) mmol/L ABG O2 Saturation (94-97) % Chloride 96 L (98-107) mmol/L Carbon Dioxide 34 H (22-30) mmol/L BUN 26 H (7-17) mg/dL Glucose 155 H (74-99) mg/dL POC Glucose (mg/dL) (75-99) mg/dL Total Protein 8.3 H (6.3-8.2) g/dL 10/21/20 10/21/20 10/22/20 Range/Units 21:02 23:39 05:43 WBC (3.8-10.6) k/uL RBC (3.80-5.40) m/uL Hct (34.0-46.0) % Neutrophils # (1.3-7.7) k/uL D-Dimer (<0.60) mg/L FEU ABG pH 7.28 L (7.35-7.45) ABG pCO2 69 H (35-45) mmHg ABG pO2 >400 H (83-108) mmHg ABG HCO3 32 H (21-25) mmol/L ABG Total CO2 34 H (19-24) mmol/L ABG O2 Saturation 100.0 H (94-97) % Chloride (98-107) mmol/L Carbon Dioxide (22-30) mmol/L BUN (7-17) mg/dL Glucose (74-99) mg/dL POC Glucose (mg/dL) 222 H 160 H (75-99) mg/dL Total Protein (6.3-8.2) g/dL 10/22/20 Range/Units 11:36 WBC (3.8-10.6) k/uL RBC (3.80-5.40) m/uL Hct (34.0-46.0) % Neutrophils # (1.3-7.7) k/uL D-Dimer (<0.60) mg/L FEU ABG pH (7.35-7.45) ABG pCO2 (35-45) mmHg ABG pO2 (83-108) mmHg ABG HCO3 (21-25) mmol/L ABG Total CO2 (19-24) mmol/L ABG O2 Saturation (94-97) % Chloride (98-107) mmol/L Carbon Dioxide (22-30) mmol/L BUN (7-17) mg/dL Glucose (74-99) mg/dL POC Glucose (mg/dL) 111 H (75-99) mg/dL Total Protein (6.3-8.2) g/dL
[2020-10-22] MEDS: FORMOTEROL FUMARATE 20 MCG/2 ML NEBU INHALATION SCH (20:51)
[2020-10-22] MEDS ORDERED: LATANOPROST 0.005% OPHTH DROPS 2.5 ML BTL BOTH EYES SCH (21:00)
[2020-10-22] MEDS: NICOTINE 14MG/24HR PATCH TRANSDERM SCH (21:58)
[2020-10-23 01:06] LABS: Glucose,Whole Blood 133 mg/dL (75-99)
[2020-10-23] MEDS: INSULIN ASPART (NovoLOG) 100 UNIT/ML VIAL SQ SCH ×5 (01:08→21:01)
[2020-10-23] MEDS: methylPREDNISolone SOD SUCCI 40 MG/ML 1 ML VIAL IV SCH ×3 (01:11→15:55)
[2020-10-23 05:14] LABS: Basophils % (A) 0 %; Eosinophils % (A) 0 %; HCT 40.8 % (34.0-46.0); HGB 13.2 gm/dL (11.4-16.0); Lymphocytes # (A) 0.9 k/uL (1.0-4.8); Lymphocytes % (A) 4 %; MCH 27.9 pg (25.0-35.0); MCHC 32.4 g/dL (31.0-37.0); MCV 86.2 fL (80.0-100.0); Mean Platelet Volume 7.5; Monocytes # (A) 0.5 k/uL (0-1.0); Monocytes % (A) 2 %; Neutrophils # (A) 21.5 k/uL (1.3-7.7); Neutrophils % (A) 94 %; Platelet Count 316 k/uL (150-450); RBC 4.73 m/uL (3.80-5.40); RDW 15.1 % (11.5-15.5); WBC 22.9 k/uL (3.8-10.6)
[2020-10-23] MEDS: IPRATROPIUM-ALBUTEROL 3 ML NEB INHALATION SCH ×5 (05:30→19:57)
[2020-10-23 06:23] LABS: Glucose,Whole Blood 130 mg/dL (75-99)
[2020-10-23] MEDS: BUDESONIDE 1 MG/2 ML NEBU INHALATION SCH ×2 (08:32→19:57)
[2020-10-23] MEDS: FORMOTEROL FUMARATE 20 MCG/2 ML NEBU INHALATION SCH ×2 (08:32→19:57)
--- NOTE | 2020-10-23 08:54 | XR ---
EXAMINATION TYPE: XR chest 1V portable DATE OF EXAM: 10/23/2020 COMPARISON: Chest x-ray 10/21/2020 HISTORY: Shortness of breath TECHNIQUE: Single frontal view of the chest is obtained. FINDINGS: Findings are similar to prior exam. Cardiac mediastinal silhouette is unchanged. Prominent lung volumes are present. No pneumothorax or pleural effusion. Bandlike increased attenuation in the right midlung likely thickening along the fissure. Some minimal patchy density suspected at the righ t lung base. Patient is rotated. IMPRESSION: There may be some minimal basilar atelectasis, scarring, correlate to exclude pneumonia. Follow-up PA and lateral chest x-ray as indicated.
[2020-10-23] MEDS: DOXYCYCLINE 100 MG CAP PO SCH ×2 (09:29→21:00)
[2020-10-23] MEDS: ENOXAPARIN 40 MG/0.4 ML SYRINGE SQ SCH (09:30)
[2020-10-23] MEDS: hydroCHLOROthiazide 25 MG TAB PO SCH (09:31)
[2020-10-23] MEDS: LOSARTAN 50 MG TAB PO SCH (09:32)
[2020-10-23] MEDS: NICOTINE 14MG/24HR PATCH TRANSDERM SCH (09:33)
[2020-10-23] MEDS: PANTOPRAZOLE 40 MG TABLET PO SCH (09:34)
[2020-10-23] MEDS: PRAVASTATIN SODIUM 20 MG TAB PO SCH (09:35)
[2020-10-23] MEDS: ALPRAZolam 0.25 MG TAB PO PRN ×2 (09:48→21:06)
[2020-10-23 09:50] LABS: African American GFR (CKD) 61.2 (60.0-200.0); Anion Gap 11.4 mmol/L (4.00-12.00); Calcium 9.7 mg/dL (8.7-10.3); Carbon Dioxide 28.6 mmol/L (21.6-31.8); Non-African American GFR(CKD) 52.8 (60.0-200.0); Potassium 4.1 mmol/L (3.5-5.5)
[2020-10-23 11:35] LABS: Glucose,Whole Blood 110 mg/dL (75-99)
--- NOTE | 2020-10-23 13:59 | P.PN ---
Subjective Progress Note Date: 10/23/20 Principal diagnosis: Acute on chronic hypercapnic respiratory failure This is an 80-year-old female with known history of severe COPD, FEV1 is in the range of 33%, patient has cold stage IV COPD, normally sees Dr. Almonte for her underlying COPD. Patient is O2 dependent, maintained normally at 2 L of oxygen via nasal cannula 19/04. Patient is also on prednisone, maintained on 3 mg daily, however she is on prednisone mostly for polymyalgia rheumatica. Patient has a [id number] smoking history. Maintained on bronchodilators in the form of Advair, she is also on DuoNeb updrafts 4 times a day and when necessary, patient is also known to have history of secondary pulmonary hypertension secondary to her underlying COPD. Her other medical problems include glaucoma, hypertension, dyslipidemia, and benign essential hypertension. Patient is also known to have history of ALLERGIC rhinitis, maintained on N[place]ana. Patient presented to the ER last night with 1 day history of increased shortness of breath, intermittent cough, wheezing, and upon arrival the patient had to be placed on BiPAP, her ABG upon presentation showed a pO2 of over 400, pCO2 of 69, pH of 7.28. Patient was placed on 28% FiO2, and BiPAP 12/6, and she was admitted to the ICU. I evaluated the patient early this morning, patient was already transitioned to a nasal cannula at 2 L, seems to be doing much better, breathing a lot easier, denies any worsening of her symptoms since last night, as a matter of fact she is feeling better. Chest x-ray showed no evidence of infiltrate. Patient had chronic pulmonary minimal fibrotic changes. No acute infiltrate was noted. Patient had a bit of leukocytosis with WBC count of 16.3, hemoglobin is 15.5. PCR for alonzo virus was negative. After reviewing the patient in the ICU, I recommended that she remains on bronchodilators, steroids, I also recommended transferring the patient out of the ICU to a regular medical floor. On 10/23/2020 patient seen in follow-up on medical floor, she is off BiPAP support, currently on 2 L of oxygen her pulse ox is 90%, she's been afebrile, she slightly tachycardic, blood pressure stable, she is sitting up on the edge of the bed, leaning on the table, seems a little shaky and anxious, but no acute respiratory distress, no altered mentation. Today's labs have been reviewed, showing white blood cell count of 22.9, hemoglobin is 13.2, electrolytes are within normal limits, BUN is 43, creatinine is 1. Blood cultures show no growth, patient continues on nebulized bronchodilators, she is on doxycycline, IV steroids, nicotine patch, she is improving Objective - Vital Signs Vital signs: Vital Signs Temp 97.6 F 10/23/20 12:38 Pulse 102 H 10/23/20 12:38 Resp 20 10/23/20 12:38 BP 109/73 10/23/20 12:38 Pulse Ox 90 L 10/23/20 12:38 Intake & Output 10/22/20 10/23/20 10/23/20 18:59 06:59 18:59 Intake Total 250 Output Total 0 0 Balance 250 0 Intake: Intake, IV Titration 250 Amount Azithromycin 500 mg In 250 Sodium Chloride 0.9% 250 ml @ 250 mls/hr IVPB ONCE STA Rx#:[id number] Output: Urine 0 0 Other: Voiding Method Bedside Commode Bedside Commode # Voids 1 1 - Exam GENERAL EXAM: Alert, very pleasant, 80-year-old white female returned have liters with a pulse ox of 90% comfortable in no apparent distress. HEAD: Normocephalic/atraumatic. EYES: Normal reaction of pupils, equal size. Conjunctiva pink, sclera white. NOSE: Clear with pink turbinates. THROAT: No erythema or exudates. NECK: No masses, no JVD, no thyroid enlargement, no adenopathy. CHEST: No chest wall deformity. Symmetrical expansion. LUNGS: Equal air entry with diminished breath sounds CVS: Regular rate and rhythm, normal S1 and S2, no gallops, no murmurs, no rubs ABDOMEN: Soft, nontender. No hepatosplenomegaly, normal bowel sounds, no guarding or rigidity. EXTREMITIES: No clubbing, no edema, no cyanosis, 2+ pulses and upper and lower extremities. MUSCULOSKELETAL: Muscle strength and tone normal. SPINE: No scoliosis or deformity SKIN: No rashes CENTRAL NERVOUS SYSTEM: Alert and oriented -3. No focal deficits, tone is normal in all 4 extremities. PSYCHIATRIC: Alert and oriented -3. Appropriate affect. Intact judgment and insight. - Labs CBC & Chem 7: 10/23/20 04:42 10/23/20 04:42 Labs: Abnormal Lab Results - Last 24 Hours (Table) 10/22/20 10/22/20 10/23/20 Range/Units 17:11 20:01 01:04 WBC (3.8-10.6) k/uL Neutrophils # (1.3-7.7) k/uL Lymphocytes # (1.0-4.8) k/uL BUN (9.0-27.0) mg/dL Est GFR (CKD-EPI)NonAf (60.0-200.0) BUN/Creatinine Ratio (12.00-20.00) Ratio Glucose (70-110) mg/dL POC Glucose (mg/dL) 170 H 173 H 133 H (75-99) mg/dL 10/23/20 10/23/20 10/23/20 Range/Units 04:42 04:42 06:19 WBC 22.9 H (3.8-10.6) k/uL Neutrophils # 21.5 H (1.3-7.7) k/uL Lymphocytes # 0.9 L (1.0-4.8) k/uL BUN 43.0 H (9.0-27.0) mg/dL Est GFR (CKD-EPI)NonAf 52.8 L (60.0-200.0) BUN/Creatinine Ratio 43.00 H (12.00-20.00) Ratio Glucose 137 H (70-110) mg/dL POC Glucose (mg/dL) 130 H (75-99) mg/dL 10/23/20 Range/Units 11:34 WBC (3.8-10.6) k/uL Neutrophils # (1.3-7.7) k/uL Lymphocytes # (1.0-4.8) k/uL BUN (9.0-27.0) mg/dL Est GFR (CKD-EPI)NonAf (60.0-200.0) BUN/Creatinine Ratio (12.00-20.00) Ratio Glucose (70-110) mg/dL POC Glucose (mg/dL) 110 H (75-99) mg/dL Microbiology - Last 24 Hours (Table) 10/21/20 20:50 Blood Culture - Preliminary Blood No Growth after 24 hours Assessment and Plan Plan: Assessment: #1. Acute on chronic hypercapnic respiratory failure related to acute exacerbation of COPD #2. Chronic hypoxic respiratory failure patient is maintained on 2 L of oxygen on a regular basis #3. History of polymyalgia rheumatica #4. History of glaucoma #5. Benign essential hypertension #6. Seasonal ALLERGIC rhinitis #7. Dyslipidemia #8. History of osteoporosis Plan: Continue current medical treatment, continue IV steroids, but we increased his Xanax to 3 times daily as needed for anxiety, and shortness of breath, continue bronchodilators. BiPAP support as needed, patient is breathing easier, feeling better, possible discharge home in the next 24 hours I performed a history & physical examination of the patient and discussed their management with my nurse practitioner, Carrie Giron. I reviewed the nurse practitioner's note and agree with the documented findings and plan of care. Lung sounds are positive for diffuse wheezes throughout the lung haile. The findings and the impression was discussed with the patient. I attest to the documentation by the nurse practitioner. Time with Patient: Less than 30
[2020-10-23 17:14] LABS: Glucose,Whole Blood 155 mg/dL (75-99)
[2020-10-23 20:19] LABS: Glucose,Whole Blood 156 mg/dL (75-99)
[2020-10-23] MEDS: LATANOPROST 0.005% OPHTH DROPS 2.5 ML BTL BOTH EYES SCH (21:47)
--- NOTE | 2020-10-23 23:32 | P.PN ---
Progress Note - Text Progress Note Date: 10/23/20 Chief Complaint: Short of breath History of presenting complaint: This is a pleasant 80-year-old patient of Dr. Lia Lozano. Chronic stable medical conditions include hypertension, hyperlipidemia, osteoarthritis, chronic hypoxic respiratory failure.. Long-standing smoker. Patient presents with progressively short of breath. Getting very easily short winded with anything. Has to sit down and get her strength and went back. Wheezing. Slight cough. No fever no chills. Appetite has gone down. Tired. Patient is quite a bit of respiratory compromise initially was put in ICU. Patient is put on a BiPAP. She responded well overnight. Getting better this morning. Admitted with acute severe COPD exacerbation, acute hypoxic and hypercarbic respiratory failure initially requiring BiPAP. Put on bronchodilators steroids. Initially admitted to the ICU then moved to the medical floor. Today-some short of breath Eating some. Tired. Sitting at the edge of the bed. Review of systems: Was done for constitutional, cardiovascular, GI, pulmonary. relevant finding as above Active Medications Albuterol/Ipratropium (Ipratropium-Albuterol 3 Ml Neb) 3 ml INHALATION RT-Q4H [facility] Last Admin: 10/23/20 19:57 Dose: 3 ml Documented by: Alprazolam (Alprazolam 0.25 Mg Tab) 0.25 mg PO TID PRN PRN Reason: Anxiety Last Admin: 10/23/20 21:06 Dose: 0.25 mg Documented by: Budesonide (Budesonide 1 Mg/2 Ml Nebu) 1 mg INHALATION RT-BID [facility] Last Admin: 10/23/20 19:57 Dose: 1 mg Documented by: Doxycycline Monohydrate (Doxycycline 100 Mg Cap) 100 mg PO BID [facility] Last Admin: 10/23/20 21:00 Dose: 100 mg Documented by: Enoxaparin Sodium (Enoxaparin 40 Mg/0.4 Ml Syringe) 40 mg SQ DAILY [facility] Last Admin: 10/23/20 09:30 Dose: 40 mg Documented by: Formoterol Fumarate (Formoterol Fumarate 20 Mcg/2 Ml Nebu) 20 mcg INHALATION RT-BID [facility] Last Admin: 10/23/20 19:57 Dose: 20 mcg Documented by: Hydrochlorothiazide (Hydrochlorothiazide 25 Mg Tab) 25 mg PO DAILY [facility] Last Admin: 10/23/20 09:31 Dose: 25 mg Documented by: Insulin Aspart (Insulin Aspart (Novolog) 100 Unit/Ml Vial) 0 unit SQ ACHS [facility]; Protocol Last Admin: 10/23/20 21:01 Dose: 3 unit Documented by: Latanoprost (Latanoprost 0.005% Ophth Drops 2.5 Ml Btl) 1 drops BOTH EYES HS [facility] Last Admin: 10/23/20 21:47 Dose: 1 drops Documented by: Losartan Potassium (Losartan 50 Mg Tab) 50 mg PO DAILY [facility] Last Admin: 10/23/20 09:32 Dose: 50 mg Documented by: Methylprednisolone Sodium Succinate (Methylprednisolone Sod Succi 40 Mg/Ml 1 Ml Vial) 40 mg IV Q8HR [facility] Last Admin: 10/23/20 15:55 Dose: 40 mg Documented by: Naloxone HCl (Naloxone 0.4 Mg/Ml 1 Ml Vial) 0.2 mg IV Q2M PRN PRN Reason: Opioid Reversal Nicotine (Nicotine 14mg/24hr Patch) 1 patch TRANSDERM DAILY [facility] Last Admin: 10/23/20 09:33 Dose: 1 patch Documented by: Pantoprazole Sodium (Pantoprazole 40 Mg Tablet) 40 mg PO DAILY [facility] Last Admin: 10/23/20 09:34 Dose: 40 mg Documented by: Pravastatin Sodium (Pravastatin Sodium 20 Mg Tab) 20 mg PO DAILY [facility] Last Admin: 10/23/20 09:35 Dose: 20 mg Documented by: Past medical history to include: COPD, hypertension, hyperlipidemia, osteoarthritis, chronic hypoxic respiratory failure Social history: Long-standing smoker, , does use a walker Physical examination: VITAL SIGNS: 97.6, 98, 20, 109/73, 90% on 2.5 L GENERAL: Sitting at the edge of the bed, short of breath. Tired EYES: Pupils equal. Conjunctiva normal. HEENT: External appearance of nose and ears normal, oral cavity grossly normal. NECK: JVD not raised; masses not palpable. HEART: First and second heart sounds are normal; no edema. LUNGS: Notable to speak full sentences, Respiratory rate increased, poor air entry, prolonged expiration ABDOMEN: Soft, nontender, liver spleen not palpable, no masses palpable. PSYCH: [Alert and oriented x3; mood and affect slightly anxious. MUSCULOSKELETAL: Evidence of OA INVESTIGATIONS, reviewed in the clinical context: October 23: White count 22.9 hemoglobin 13.2 potassium 4.1 creatinine 1.0 White count 16.3 hemoglobin 15.5 platelets 372 Potassium 4.4 creatinine 0.94 line ABG pH 7.28 pCO2 69 EKG tracing personally reviewed by me-poor LV progression, low voltage Chest x-ray film personally reviewed by me-portable. Some chronic changes hyperinflation Assessment: --Acute severe COPD exacerbation in a current smoker, POA-slow to respond -Acute hypoxic and hypercarbic respiratory failure from above requiring BiPAP initially,-now on nasal cannula -Hyperlipidemia -Essential hypertension -Primary osteoarthritis -Chronic nicotine dependence cigarette smoker -Chronic hypoxic respiratory failure, from COPD Plan: Continue bronchodilators, steroids, nasal cannula.. Discussed with the patient. Advised to sit at the edge of the bed rather is lying down. Spoke to the aide to help her with that.. Expected patient up in the hospital for at least couple more days. -
[2020-10-24] MEDS: methylPREDNISolone SOD SUCCI 40 MG/ML 1 ML VIAL IV SCH ×2 (00:54→10:08)
[2020-10-24] MEDS: IPRATROPIUM-ALBUTEROL 3 ML NEB INHALATION SCH ×5 (01:28→15:40)
[2020-10-24 07:04] LABS: Glucose,Whole Blood 112 mg/dL (75-99)
[2020-10-24 07:05] LABS: Basophils % (A) 0 %; Eosinophils % (A) 0 %; HCT 41.9 % (34.0-46.0); HGB 13.7 gm/dL (11.4-16.0); Hypochromasia Slight; Lymphocytes # (A) 0.6 k/uL (1.0-4.8); Lymphocytes % (A) 3 %; MCH 28.6 pg (25.0-35.0); MCHC 32.8 g/dL (31.0-37.0); MCV 87.3 fL (80.0-100.0); Mean Platelet Volume 7.2; Monocytes # (A) 0.4 k/uL (0-1.0); Monocytes % (A) 2 %; Neutrophils # (A) 17.2 k/uL (1.3-7.7); Neutrophils % (A) 94 %; Platelet Count 328 k/uL (150-450); RDW 15.2 % (11.5-15.5); WBC 18.3 k/uL (3.8-10.6)
[2020-10-24] MEDS: INSULIN ASPART (NovoLOG) 100 UNIT/ML VIAL SQ SCH ×3 (07:11→13:27)
[2020-10-24] MEDS: hydroCHLOROthiazide 25 MG TAB PO SCH (08:10)
[2020-10-24] MEDS: DOXYCYCLINE 100 MG CAP PO SCH (08:10)
[2020-10-24] MEDS: PRAVASTATIN SODIUM 20 MG TAB PO SCH (08:11)
[2020-10-24] MEDS: ENOXAPARIN 40 MG/0.4 ML SYRINGE SQ SCH (08:11)
[2020-10-24] MEDS: NICOTINE 14MG/24HR PATCH TRANSDERM SCH (08:11)
[2020-10-24] MEDS: LOSARTAN 50 MG TAB PO SCH (08:11)
[2020-10-24] MEDS: PANTOPRAZOLE 40 MG TABLET PO SCH (08:11)
[2020-10-24] MEDS: ALPRAZolam 0.25 MG TAB PO PRN (08:26)
[2020-10-24] MEDS: BUDESONIDE 1 MG/2 ML NEBU INHALATION SCH (08:52)
[2020-10-24] MEDS: FORMOTEROL FUMARATE 20 MCG/2 ML NEBU INHALATION SCH (09:05)
[2020-10-24 09:36] LABS: African American GFR (CKD) 61.2 (60.0-200.0); Anion Gap 13.8 mmol/L (4.00-12.00); Calcium 9.4 mg/dL (8.7-10.3); Carbon Dioxide 27.2 mmol/L (21.6-31.8); Non-African American GFR(CKD) 52.8 (60.0-200.0); Potassium 3.9 mmol/L (3.5-5.5)
[2020-10-24 11:40] LABS: Glucose,Whole Blood 106 mg/dL (75-99)
--- NOTE | 2020-10-24 12:31 | P.PN ---
Subjective Progress Note Date: 10/24/20 Principal diagnosis: Acute on chronic hypercapnic respiratory failure This is an 80-year-old female with known history of severe COPD, FEV1 is in the range of 33%, patient has cold stage IV COPD, normally sees Dr. Almonte for her underlying COPD. Patient is O2 dependent, maintained normally at 2 L of oxygen via nasal cannula 19/04. Patient is also on prednisone, maintained on 3 mg daily, however she is on prednisone mostly for polymyalgia rheumatica. Patient has a [id number] smoking history. Maintained on bronchodilators in the form of Advair, she is also on DuoNeb updrafts 4 times a day and when necessary, patient is also known to have history of secondary pulmonary hypertension secondary to her underlying COPD. Her other medical problems include glaucoma, hypertension, dyslipidemia, and benign essential hypertension. Patient is also known to have history of ALLERGIC rhinitis, maintained on Nayana. Patient presented to the ER last night with 1 day history of increased shortness of breath, intermittent cough, wheezing, and upon arrival the patient had to be placed on BiPAP, her ABG upon presentation showed a pO2 of over 400, pCO2 of 69, pH of 7.28. Patient was placed on 28% FiO2, and BiPAP 12/6, and she was admitted to the ICU. I evaluated the patient early this morning, patient was already transitioned to a nasal cannula at 2 L, seems to be doing much better, breathing a lot easier, denies any worsening of her symptoms since last night, as a matter of fact she is feeling better. Chest x-ray showed no evidence of infiltrate. Patient had chronic pulmonary minimal fibrotic changes. No acute infiltrate was noted. Patient had a bit of leukocytosis with WBC count of 16.3, hemoglobin is 15.5. PCR for alonzo virus was negative. After reviewing the patient in the ICU, I recommended that she remains on bronchodilators, steroids, I also recommended transferring the patient out of the ICU to a regular medical floor. On 10/23/2020 patient seen in follow-up on medical floor, she is off BiPAP support, currently on 2 L of oxygen her pulse ox is 90%, she's been afebrile, she slightly tachycardic, blood pressure stable, she is sitting up on the edge of the bed, leaning on the table, seems a little shaky and anxious, but no acute respiratory distress, no altered mentation. Today's labs have been reviewed, showing white blood cell count of 22.9, hemoglobin is 13.2, electrolytes are within normal limits, BUN is 43, creatinine is 1. Blood cultures show no growth, patient continues on nebulized bronchodilators, she is on doxycycline, IV steroids, nicotine patch, she is improving On 10/24/2020 patient seen in follow-up on medical floor, she is breathing easier, less dyspneic last bronchospastic, she remains on 2 L of oxygen pulse ox is 94-96%, hemodynamics is been stable, she has been afebrile. she has had no acute events overnight, she is less anxious today, his labs have been reviewed, white blood cell count is improved, down to 18.3, hemoglobin is 13.7, sodium is 146, potassium 3.9, BUN is 50 creatinine is 1. He has had no fever or chills, blood cultures have been negative, she remains on IV Solu-Medrol current path ology will continue a hours, nebulized bronchodilators, and Lovenox at 40 mg daily. Objective - Vital Signs Vital signs: Vital Signs Temp 97.6 F 10/24/20 07:48 Pulse 73 10/24/20 10:20 Resp 22 10/24/20 10:20 BP 143/79 10/24/20 07:48 Pulse Ox 94 L 10/24/20 07:48 Intake & Output 10/23/20 10/24/20 10/24/20 18:59 06:59 18:59 Output Total 0 0 Balance 0 0 Weight 74.871 kg Output: Gastric Drainage 0 Urine 0 Stool 0 0 Other: Voiding Method Toilet Bedside Commode # Voids 1 - Exam GENERAL EXAM: Alert, very pleasant, 80-year-old white female on 2 liters with a pulse ox of 90% comfortable in no apparent distress. HEAD: Normocephalic/atraumatic. EYES: Normal reaction of pupils, equal size. Conjunctiva pink, sclera white. NOSE: Clear with pink turbinates. THROAT: No erythema or exudates. NECK: No masses, no JVD, no thyroid enlargement, no adenopathy. CHEST: No chest wall deformity. Symmetrical expansion. LUNGS: Equal air entry with diminished breath sounds CVS: Regular rate and rhythm, normal S1 and S2, no gallops, no murmurs, no rubs ABDOMEN: Soft, nontender. No hepatosplenomegaly, normal bowel sounds, no guarding or rigidity. EXTREMITIES: No clubbing, no edema, no cyanosis, 2+ pulses and upper and lower extremities. MUSCULOSKELETAL: Muscle strength and tone normal. SPINE: No scoliosis or deformity SKIN: No rashes CENTRAL NERVOUS SYSTEM: Alert and oriented -3. No focal deficits, tone is normal in all 4 extremities. PSYCHIATRIC: Alert and oriented -3. Appropriate affect. Intact judgment and insight. - Labs CBC & Chem 7: 10/24/20 05:50 10/24/20 05:50 Labs: Abnormal Lab Results - Last 24 Hours (Table) 10/23/20 10/23/20 10/24/20 Range/Units 17:12 20:18 05:50 WBC 18.3 H (3.8-10.6) k/uL Neutrophils # 17.2 H (1.3-7.7) k/uL Lymphocytes # 0.6 L (1.0-4.8) k/uL Sodium (135-145) mmol/L Anion Gap (4.00-12.00) mmol/L BUN (9.0-27.0) mg/dL Est GFR (CKD-EPI)NonAf (60.0-200.0) BUN/Creatinine Ratio (12.00-20.00) Ratio Glucose (70-110) mg/dL POC Glucose (mg/dL) 155 H 156 H (75-99) mg/dL 10/24/20 10/24/20 10/24/20 Range/Units 05:50 07:02 11:38 WBC (3.8-10.6) k/uL Neutrophils # (1.3-7.7) k/uL Lymphocytes # (1.0-4.8) k/uL Sodium 146 H (135-145) mmol/L Anion Gap 13.80 H (4.00-12.00) mmol/L BUN 50.0 H (9.0-27.0) mg/dL Est GFR (CKD-EPI)NonAf 52.8 L (60.0-200.0) BUN/Creatinine Ratio 50.00 H (12.00-20.00) Ratio Glucose 116 H (70-110) mg/dL POC Glucose (mg/dL) 112 H 106 H (75-99) mg/dL Microbiology - Last 24 Hours (Table) 10/21/20 20:50 Blood Culture - Preliminary Blood No Growth after 48 hours Assessment and Plan Plan: Assessment: #1. Acute on chronic hypercapnic respiratory failure related to acute exacerbation of COPD #2. Chronic hypoxic respiratory failure patient is maintained on 2 L of oxygen on a regular basis #3. History of polymyalgia rheumatica #4. History of glaucoma #5. Benign essential hypertension #6. Seasonal ALLERGIC rhinitis #7. Dyslipidemia #8. History of osteoporosis Plan: Patient is breathing easier, she continues to improve, less dyspneic and anxious. Vital signs have been stable, she has home oxygen, nebulized treatments at home, she's had no fever or chills, she can consider for discharge home today, and she will need prednisone taper starting with 30 mg for 5 days, 20 mg for 5 days, 10 mg for 5 days, 5 mg for 5 days, and then patient can go back to her home dose of 3 mg daily. She already has outpatient appointment with Dr. Almonte in the office next Sunday November 01, 2020 I performed a history & physical examination of the patient and discussed their management with my nurse practitioner, Carrie Giron. I reviewed the nurse practitioner's note and agree with the documented findings and plan of care. Lung sounds are positive for diffuse wheezes throughout the lung haile. The findings and the impression was discussed with the patient. I attest to the documentation by the nurse practitioner. Time with Patient: Less than 30
[2020-10-24] MEDS ORDERED: PNEUMOCOCCAL VACC-PNEUMOVAX 23 25 MCG/0.5 ML VIAL IM ONE (13:24)
[2020-10-24] MEDS ORDERED: INFLUENZA VACCINE (6 MOS+) 60 MCG/0.5 ML SYRINGE IM ONE (13:25)
[2020-10-24 13:37] VITALS: BP 130/66; PULSE 88; RESP 18; TEMP 97.8
--- NOTE | 2020-10-25 17:02 | P.DS ---
Providers Date of admission: 10/21/20 22:08 Expected date of discharge: 10/24/20 Attending physician: Christopher Yang Consults: 10/21/20 22:06 Consult Physician Routine Consulting Provider: Kanu Mosley Consult Reason/Comments: copd, icu patietn Do you want consulting provider notified?: Already Contacted Primary care physician: Femi Lozano [facility] Course: Chief Complaint: Short of breath History of presenting complaint: This is a pleasant 80-year-old patient of Dr. Lia Lozano. Chronic stable medical conditions include hypertension, hyperlipidemia, osteoarthritis, chronic hypoxic respiratory failure.. Long-standing smoker. Patient presents with progressively short of breath. Getting very easily short winded with anything. Has to sit down and get her strength and went back. Wheezing. Slight cough. No fever no chills. Appetite has gone down. Tired. Patient is quite a bit of respiratory compromise initially was put in ICU. Patient is put on a BiPAP. She responded well overnight. Getting better this morning. Admitted with acute severe COPD exacerbation, acute hypoxic and hypercarbic respiratory failure initially requiring BiPAP. Put on bronchodilators steroids. Initially admitted to the ICU then moved to the medical floor. Today-breathing better. Care was discussed with the patient. Quite close to baseline. Cleared by Dr. Mosley. Consultation: Dr. Mosley from pulmonary Past medical history to include: COPD, hypertension, hyperlipidemia, osteoarthritis, chronic hypoxic respiratory failure Social history: Long-standing smoker, , does use a walker Physical examination: VITAL SIGNS: 97.8, 88, 18, 130/66, 92% on 2 L GENERAL: Sitting at the edge of the bed, breathing better EYES: Pupils equal. Conjunctiva normal. HEENT: External appearance of nose and ears normal, oral cavity grossly normal. NECK: JVD not raised; masses not palpable. HEART: First and second heart sounds are normal; no edema. LUNGS: Increased respiratory rate, decreased breath sounds ABDOMEN: Soft, nontender, liver spleen not palpable, no masses palpable. PSYCH: [Alert and oriented x3; mood and affect normal MUSCULOSKELETAL: Evidence of OA INVESTIGATIONS, reviewed in the clinical context: October 16: White count 18.3 hemoglobin 13.7 potassium 3.9 creatinine 1.0 October 23: White count 22.9 hemoglobin 13.2 potassium 4.1 creatinine 1.0 White count 16.3 hemoglobin 15.5 platelets 372 Potassium 4.4 creatinine 0.94 line ABG pH 7.28 pCO2 69 EKG tracing personally reviewed by me-poor LV progression, low voltage Chest x-ray film personally reviewed by me-portable. Some chronic changes hyperinflation Assessment: --Acute severe COPD exacerbation in a current smoker, POA- -Acute hypoxic and hypercarbic respiratory failure from above requiring BiPAP initially, -Hyperlipidemia -Essential hypertension -Primary osteoarthritis -Chronic nicotine dependence cigarette smoker -Chronic hypoxic respiratory failure, from COPD Disposition: Home Plan - Discharge Summary Discharge Rx Participant: No New Discharge Prescriptions: New Nicotine 14Mg/24Hr Patch [Habitrol] 1 patch TRANSDERM DAILY #14 patch predniSONE 10 mg PO DAILY #30 tab Doxycycline [Vibramycin] 100 mg PO BID #6 cap Continue ALPRAZolam [Xanax] 0.25 mg PO BID PRN PRN Reason: Anxiety Pravastatin Sodium [Pravachol] 20 mg PO DAILY Latanoprost/Pf [Latanoprost 0.005% Eye Drop] 1 drop BOTH EYES HS Ipratropium-Albuterol Nebulize [Duoneb 0.5 mg-3 mg/3 ml Soln] 3 ml INHALATION RT-QID Calcium Carbonate/Vitamin D3 [Calcium 500-Vit D3 15 Mcg (600 Iu)] 1 tab PO DAILY Fluticasone/Salmeterol [Advair 100-50 Diskus] 2 puff INHALATION RT-BID Budesonide [Pulmicort] 1 mg INHALATION RT-BID #60 nebu hydroCHLOROthiazide [Hydrodiuril] 25 mg PO DAILY Losartan Potassium [Cozaar] 50 mg PO DAILY predniSONE 3 mg PO DAILY Discharge Medication List ALPRAZolam [Xanax] 0.25 mg PO BID PRN 10/09/19 [History] Calcium Carbonate/Vitamin D3 [Calcium 500-Vit D3 15 Mcg (600 Iu)] 1 tab PO DAILY 10/09/19 [History] Fluticasone/Salmeterol [Advair 100-50 Diskus] 2 puff INHALATION RT-BID 10/09/19 [History] Ipratropium-Albuterol Nebulize [Duoneb 0.5 mg-3 mg/3 ml Soln] 3 ml INHALATION RT-QID 10/09/19 [History] Latanoprost/Pf [Latanoprost 0.005% Eye Drop] 1 drop BOTH EYES HS 10/09/19 [History] Pravastatin Sodium [Pravachol] 20 mg PO DAILY 10/09/19 [History] Budesonide [Pulmicort] 1 mg INHALATION RT-BID #60 nebu 10/13/19 [Rx] Losartan Potassium [Cozaar] 50 mg PO DAILY 10/21/20 [History] hydroCHLOROthiazide [Hydrodiuril] 25 mg PO DAILY 10/21/20 [History] predniSONE 3 mg PO DAILY 10/21/20 [History] Doxycycline [Vibramycin] 100 mg PO BID #6 cap 10/24/20 [Rx] Nicotine 14Mg/24Hr Patch [Habitrol] 1 patch TRANSDERM DAILY #14 patch 10/24/20 [Rx] predniSONE 10 mg PO DAILY #30 tab 10/24/20 [Rx] Follow up Appointment(s)/Referral(s): [facility] [NON-STAFF] - (Please call [facility] once home to 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
== END 2020-10-24 16:59 | disposition home health service (06) | DRG 190 ==
LOC: EC 20:26 → 2SICU 22:08 → 5NMEDONC 10-22 14:12
PROVIDERS: ADMIT Hospitalist; ATTEND Hospitalist
PROC: 5A09357 Assistance with Respiratory Ventilation, Less than 24 Consecutive Hours, Continuous Positive Airway Pressure (ICD-10-PCS; principal; 2020-10-21)
PROC: 3E0234Z Introduction of Serum, Toxoid and Vaccine into Muscle, Percutaneous Approach (ICD-10-PCS; 2020-10-24)
PROC: 3E02340 Introduction of Influenza Vaccine into Muscle, Percutaneous Approach (ICD-10-PCS; 2020-10-24)
DX: J44.1 Chronic obstructive pulmonary disease with (acute) exacerbation (principal); J96.21 Acute and chronic respiratory failure with hypoxia; J96.22 Acute and chronic respiratory failure with hypercapnia; E87.2 Acidosis; D72.829 Elevated white blood cell count, unspecified; E78.5 Hyperlipidemia, unspecified; F17.210 Nicotine dependence, cigarettes, uncomplicated; H40.9 Unspecified glaucoma; I10 Essential (primary) hypertension; I27.29 Other secondary pulmonary hypertension; J30.2 Other seasonal allergic rhinitis; M19.91 Primary osteoarthritis, unspecified site; M35.3 Polymyalgia rheumatica; M81.0 Age-related osteoporosis without current pathological fracture; G35 Multiple sclerosis; Z23 Encounter for immunization; Z99.81 Dependence on supplemental oxygen; Z79.52 Long term (current) use of systemic steroids; Z79.83 Long term (current) use of bisphosphonates; Z79.899 Other long term (current) drug therapy; Z66 Do not resuscitate; Z80.1 Family history of malignant neoplasm of trachea, bronchus and lung; Z79.82 Long term (current) use of aspirin; Z82.49 Family history of ischemic heart disease and other diseases of the circulatory system; Z83.3 Family history of diabetes mellitus; Z88.0 Allergy status to penicillin; Z20.822 Contact with and (suspected) exposure to COVID-19
CPT/HCPCS: 36415; 36600; 71045; 80048; 80053; 82805; 83605; 83735; 83880; 84484; 85025; 85379; 85610; 85730; 87040; 87635; 90686; 90732; 93005; 94640; 94644; 94645; 94660; 94760; 96365; 96375; 99291

== ENCOUNTER 2021-12-08 22:09 | Inpatient (IN) | payer MEDICARE ==
[2021-12-08] MEDS ORDERED: ALBUTEROL NEBULIZED 2.5 MG/3 ML INHALATION STA (22:15)
[2021-12-08] MEDS ORDERED: methylPREDNISolone SOD SUCCI 125 MG/2 ML VIAL IV STA (22:15)
[2021-12-08] MEDS ORDERED: IPRATROPIUM 0.5 MG/2.5 ML NEBU INHALATION STA (22:15)
[2021-12-08] MEDS ORDERED: MORPHINE SULFATE 2 MG/ML SYRINGE IVP PRN (22:16)
[2021-12-08] MEDS ORDERED: MORPHINE SULFATE 2 MG/ML SYRINGE IVP STA (22:16)
--- NOTE | 2021-12-08 22:16 | ED ---
SOB HPI - General Stated Complaint: MOE Time Seen by Provider: 12/08/21 22:11 Source: RN notes reviewed, old records reviewed, Caregiver Mode of arrival: EMS Limitations: no limitations - History of Present Illness Initial Comments: This is a 81-year-old female severe respiratory distress. On arrival to ER patient is on BiPAP continued on BiPAP secondary severe distress work of breathing tachycardic tripod and severe shortness of breath. Patient believes she had some sort of exposure that causes respiratory distress syndrome tonight. Complaint: shortness of breath, cough -: hour(s) Severity: severe Severity scale (1-10): 9 Consistency: constant Improves With: rest Worsens With: exertion, coughing, inspiration Known History Of: COPD Context: recent URI, anxiety, recent illness Associated Symptoms: chest pain, cough Treatments Prior to Arrival: none - Related Data Home Oxygen Therapy: No Home Medications Medication Instructions Recorded Confirmed ALPRAZolam [Xanax] 0.25 mg PO TID PRN 10/09/19 12/08/21 Ipratropium-Albuterol Nebulize 3 ml INHALATION RT-QID PRN 10/09/19 12/08/21 [Duoneb 0.5 mg-3 mg/3 ml Soln] Latanoprost/Pf [Latanoprost 0.005% 1 drop BOTH EYES HS 10/09/19 12/08/21 Eye Drop] Pravastatin Sodium [Pravachol] 20 mg PO HS 10/09/19 12/08/21 Losartan Potassium [Cozaar] 50 mg PO DAILY 10/21/20 12/08/21 hydroCHLOROthiazide [Hydrodiuril] 25 mg PO DAILY 10/21/20 12/08/21 Albuterol Sulfate [Albuterol 2 puff INHALATION RT-Q4H PRN 12/08/21 12/08/21 Sulfate Hfa] Cholecalciferol [Vitamin D3 (25 25 mcg PO DAILY 12/08/21 12/08/21 Mcg = 1000 Iu)] Trelegy Ellipta (Unknown Dose) 1 puff INHALATION RT-BID 12/08/21 12/08/21 Zinc 50 mg PO DAILY 12/08/21 12/08/21 Allergies Allergy/AdvReac Type Severity Reaction Status Date / Time Penicillins Allergy Unknown Verified 12/08/21 22:30 Review of Systems ROS Statement: Those systems with pertinent positive or pertinent negative responses have been documented in the HPI. ROS Other: All systems not noted in ROS Statement are negative. 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 She uses a rolling walker. She has home oxygen/nebulizer. She drives. Smoking Status: Current some day smoker Past Alcohol Use History: None Reported Additional Past Alcohol Use History / Comment(s): Pt started smoking in 6 and is a ppd smoker. Past Drug Use History: None Reported - Past Family History Father Family Medical History: Cancer, Hypertension Additional Family Medical History / Comment(s): Father had lung cancer with lobectomy. She was a smoker Mother Family Medical History: Diabetes Mellitus, Hypertension General Exam General appearance: alert, in no apparent distress, anxious Head exam: Present: atraumatic, normocephalic, normal inspection Eye exam: Present: normal appearance, PERRL, EOMI. Absent: scleral icterus, conjunctival injection, periorbital swelling ENT exam: Present: normal exam, mucous membranes moist Neck exam: Present: normal inspection. Absent: tenderness, meningismus, lymphadenopathy Respiratory exam: Present: normal lung sounds bilaterally. Absent: respiratory distress, wheezes, rales, rhonchi, stridor Cardiovascular Exam: Present: normal rhythm, tachycardia, normal heart sounds. Absent: systolic murmur, diastolic murmur, rubs, gallop, clicks GI/Abdominal exam: Present: soft, normal bowel sounds. Absent: distended, tenderness, guarding, rebound, rigid Extremities exam: Present: normal inspection, full ROM, normal capillary refill. Absent: tenderness, pedal edema, joint swelling, calf tenderness Back exam: Present: normal inspection Neurological exam: Present: alert, oriented X3, CN II-XII intact Psychiatric exam: Present: normal affect, normal mood Skin exam: Present: warm, dry, intact, normal color. Absent: rash Course Vital Signs 12/08/21 12/08/21 12/08/21 22:11 22:27 23:08 Temperature 98.2 F Pulse Rate 137 H 137 H 123 H Respiratory 18 Rate Blood Pressure 133/89 O2 Sat by Pulse 98 Oximetry 12/08/21 23:10 Temperature Pulse Rate 123 H Respiratory 30 H Rate Blood Pressure 121/68 O2 Sat by Pulse 96 Oximetry - Reevaluation(s) Reevaluation #1: 12/08/21 23:18 Medical record is reviewed 12/08/21 23:18 Patient placed on BiPAP on arrival to the ER Reevaluation #2: 12/08/21 23:18 Patient has mild improvement throughout ER stay although in severe distress needs to remain on BiPAP Reevaluation #3: 12/08/21 23:18 Patient informed results and questions answered Medical Decision Making - Medical Decision Making 81 female to the emergency department for evaluation of severe acute distress for distress syndrome. Patient symptoms are significantly improving here on BiPAP. Patient be admitted for continued supportive care - Lab Data Result diagrams: 12/08/21 22:27 12/08/21 22:27 Lab Results 12/08/21 12/08/21 12/08/21 Range/Units 22:27 22:27 22:27 WBC 17.9 H (3.8-10.6) k/uL RBC 4.82 (3.80-5.40) m/uL Hgb 14.2 (11.4-16.0) gm/dL Hct 45.0 (34.0-46.0) % MCV 93.3 (80.0-100.0) fL MCH 29.6 (25.0-35.0) pg MCHC 31.7 (31.0-37.0) g/dL RDW 14.4 (11.5-15.5) % Plt Count 313 (150-450) k/uL MPV 7.7 Neutrophils % 65 % Lymphocytes % 23 % Monocytes % 6 % Eosinophils % 2 % Basophils % 2 % Neutrophils # 11.7 H (1.3-7.7) k/uL Lymphocytes # 4.1 (1.0-4.8) k/uL Monocytes # 1.1 H (0-1.0) k/uL Eosinophils # 0.4 (0-0.7) k/uL Basophils # 0.3 H (0-0.2) k/uL Hypochromasia Slight Sodium 143 (137-145) mmol/L Potassium 4.1 (3.5-5.1) mmol/L Chloride 96 L (98-107) mmol/L Carbon Dioxide 38 H (22-30) mmol/L Anion Gap 9 mmol/L BUN 29 H (7-17) mg/dL Creatinine 1.31 H (0.52-1.04) mg/dL Est GFR (CKD-EPI)AfAm 44 (>60 ml/min/1.73 sqM) Est GFR (CKD-EPI)NonAf 38 (>60 ml/min/1.73 sqM) Glucose 127 H (74-99) mg/dL Calcium 9.6 (8.4-10.2) mg/dL Magnesium 1.9 (1.6-2.3) mg/dL Total Bilirubin 0.7 (0.2-1.3) mg/dL AST 36 (14-36) U/L ALT 27 (4-34) U/L Alkaline Phosphatase 85 (38-126) U/L Troponin I <0.012 (0.000-0.034) ng/mL Total Protein 8.3 H (6.3-8.2) g/dL Albumin 4.3 (3.5-5.0) g/dL - EKG Data -: EKG Interpreted by Me (EKG is sinus tachycardia 140 RI 177 QRS 82 QTC 425) - Radiology Data Radiology results: report reviewed (Chest x-ray is mild pleural reaction), image reviewed Critical Care Time Critical Care Time: Yes Total Critical Care Time: 31 Disposition Clinical Impression: COPD exacerbation, Respiratory failure, Acute exacerbation of COPD with asthma, Hypoxia, DNR no code (do not resuscitate), Tachycardia Disposition: ADMITTED IP TO THIS HOSP Condition: Serious Is patient prescribed a controlled substance at d/c from ED?: No Referrals: Femi Lozano DO [Primary Care Provider] - 1-2 days
[2021-12-08 22:38] LABS: Basophils # (A) 0.3 k/uL (0-0.2); Basophils % (A) 2 %; Eosinophils # (A) 0.4 k/uL (0-0.7); Eosinophils % (A) 2 %; HGB 14.2 gm/dL (11.4-16.0); Hypochromasia Slight; Lymphocytes # (A) 4.1 k/uL (1.0-4.8); Lymphocytes % (A) 23 %; MCH 29.6 pg (25.0-35.0); MCHC 31.7 g/dL (31.0-37.0); MCV 93.3 fL (80.0-100.0); Mean Platelet Volume 7.7; Monocytes # (A) 1.1 k/uL (0-1.0); Monocytes % (A) 6 %; Neutrophils # (A) 11.7 k/uL (1.3-7.7); Neutrophils % (A) 65 %; Platelet Count 313 k/uL (150-450); RBC 4.82 m/uL (3.80-5.40); RDW 14.4 % (11.5-15.5); WBC 17.9 k/uL (3.8-10.6)
--- NOTE | 2021-12-08 22:43 | XR ---
EXAMINATION TYPE: XR chest 1V portable DATE OF EXAM: 12/08/2021 COMPARISON: 10/23/2020 HISTORY: Short of breath TECHNIQUE: FINDINGS: Heart is normal. There is no heart failure. There is some linear density right midlung fiel d that could be some fluid in the minor fissure. There is slight blunting of the costophrenic angles. There are no hilar masses. There are chest leads. IMPRESSION: There is some mild pleural reaction and fluid on the right side which is mostly new sayra red to old exam. No obvious heart failure.
[2021-12-08 22:54] LABS: Albumin 4.3 g/dL (3.5-5.0); Calcium 9.6 mg/dL (8.4-10.2); Magnesium 1.9 mg/dL (1.6-2.3); Potassium 4.1 mmol/L (3.5-5.1); Total Bilirubin 0.7 mg/dL (0.2-1.3); Total Protein 8.3 g/dL (6.3-8.2)
[2021-12-08] MEDS ORDERED: LORazepam 2 MG/ML INJ IV PRN (22:54)
[2021-12-08] MEDS ORDERED: ONDANSETRON 4 MG/2 ML VIAL IVP PRN (22:54)
[2021-12-08] MEDS ORDERED: ONDANSETRON 4 MG/2 ML VIAL IVP STA (22:54)
[2021-12-08] MEDS ORDERED: LORazepam 2 MG/ML INJ IV STA (22:54)
[2021-12-08] MEDS ORDERED: NALOXONE 0.4 MG/ML 1 ML VIAL IV PRN (23:13)
[2021-12-08] MEDS ORDERED: MORPHINE SULFATE 4 MG/ML SYRINGE IV PRN (23:13)
[2021-12-08 23:20] LABS: INR 0.9 (<1.2); Partial Thromboplastin Time 20.7 sec (22.0-30.0); Prothrombin Time 10.1 sec (9.0-12.0)
[2021-12-08] MEDS: SODIUM CHLORIDE 0.9% 1,000 ML IV SCH (23:56)
[2021-12-09] MEDS: methylPREDNISolone SOD SUCCI 125 MG/2 ML VIAL IV SCH ×4 (03:50→18:15)
[2021-12-09 04:33] LABS: Basophils % (A) 0 %; Eosinophils % (A) 0 %; HCT 43.4 % (34.0-46.0); Hypochromasia Marked; Lymphocytes # (A) 0.6 k/uL (1.0-4.8); Lymphocytes % (A) 4 %; MCH 28.5 pg (25.0-35.0); MCHC 29.9 g/dL (31.0-37.0); MCV 95.2 fL (80.0-100.0); Mean Platelet Volume 7.3; Monocytes # (A) 0.2 k/uL (0-1.0); Monocytes % (A) 1 %; Neutrophils # (A) 14.7 k/uL (1.3-7.7); Neutrophils % (A) 95 %; Platelet Count 290 k/uL (150-450); RBC 4.56 m/uL (3.80-5.40); RDW 14.8 % (11.5-15.5); WBC 15.5 k/uL (3.8-10.6)
[2021-12-09 04:46] LABS: Albumin 3.7 g/dL (3.5-5.0); Calcium 8.9 mg/dL (8.4-10.2); Magnesium 1.8 mg/dL (1.6-2.3); Phosphorus 4.9 mg/dL (2.5-4.5); Potassium 4.4 mmol/L (3.5-5.1); Total Bilirubin 0.4 mg/dL (0.2-1.3); Total Protein 6.9 g/dL (6.3-8.2)
[2021-12-09] MEDS: ALBUTEROL NEBULIZED 2.5 MG/3 ML INHALATION SCH ×3 (08:16→19:45)
[2021-12-09] MEDS: IPRATROPIUM-ALBUTEROL 3 ML NEB INHALATION PRN ×4 (08:17→19:46)
[2021-12-09] MEDS ORDERED: FUROSEMIDE 10 MG/ML 4 ML VIAL IV STA (09:50)
--- NOTE | 2021-12-09 09:56 | P.CNPUL ---
History of Present Illness Consult date: 12/09/21 Reason for consult: dyspnea History of present illness: This is a very pleasant 81-year-old female patient, who is known to have severe COPD. The patient sees me in the office regarding her COPD. Her last pulmonate function test showed an FEV1 of 27% at baseline, 33% post bronchodilation. Diffusion capacity is around 35%. She has home O2 at 2.5 L per minute nasal cannula. I have her on Trelegy Ellipta one inhalation a day and the patient is also on albuterol nebulized treatments around the clock. She is very anxious and she is on a combination of Lexapro 10 mg by mouth and Xanax on an as-needed basis. She has had previous influenza A pneumonia from which she has recovered. She has chronic anxiety/depression. She also has hypertension as another comorbid condition. The patient comes in yesterday through emergency department because of worsening shortness of breath. She was quite dyspneic and tachypneic and immediately she was placed on a BiPAP at a pressure of 12/6 cm of water with an FiO2 of 40%. Currently she is weaned down to 4 L of oxygen by nasal cannula. She has bronchospastic and wheezy. She was started on bronchodilators. She was started on IV Solu-Medrol 60 mg IV push every 6 hours. Chest x-ray shows h yperinflation. There is no evidence of any acute pneumonia at this consistent with COPD. Thickening of the fissure on the right, possibly some mild component of fluid within the fissure versus platelike atelectasis in the right lung. No signs of any CO2 narcosis. No angina. No swelling lower extremities. The patient thinks that the exacerbating factor at this point is some cleaning products or was exposed at home. Refrigerator was moved by family members and underneath and refrigerator was being cleaned and the dust was being taken care of and following that, the patient became more short of breath. Review of Systems Constitutional: Reports fatigue, Reports weakness Eyes: denies as per HPI, denies blurred vision, denies bulging eye, denies decreased vision, denies diplopia, denies discharge, denies dry eye, denies irr itation, denies itching, denies pain, denies photophobia, denies loss of peripheral vision, denies loss of vision, denies tunnel vision/blind spots Ears: deny: decreased hearing, ear discharge, earache, tinnitus Ears, nose, mouth and throat: Reports as per HPI Breasts: absent: as per HPI, change in shape, gynecomastia, masses, nipple discharge, pain, skin changes, swelling Breasts: Reports as per HPI Cardiovascular: Reports as per HPI, Reports decreased exercise tolerance, Reports dyspnea on exertion Respiratory: Reports cough with sputum, Reports dyspnea Gastrointestinal: Reports as per HPI Genitourinary: Reports as per HPI Musculoskeletal: Reports as per HPI Musculoskeletal: absent: ankle pain, ankle stiffness, ankle swelling Integumentary: Reports as per HPI Neurological: Reports as per HPI Psychiatric: Reports as per HPI Endocrine: Reports as per HPI Hematologic/Lymphatic: Reports as per HPI Allergic/Immunologic: Reports as per HPI Past Medical History Past Medical History: Asthma, COPD, Hyperlipidemia, Hypertension Additional Past Medical History / Comment(s): Bronchitis, home oxygen 2-3L/NC HS and prn, recently diagnosed with glaucoma, diverticulitis, bowel abscess with sigmoid resection, optic neuritis, 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 She uses a rolling walker. She has home oxygen/nebulizer. She drives. Smoking Status: Current some day smoker Past Alcohol Use History: None Reported Additional Past Alcohol Use History / Comment(s): Pt started smoking in 1957 and is a ppd smoker. Past Drug Use History: None Reported - Past Family History Father Family Medical History: Cancer, Hypertension Additional Family Medical History / Comment(s): Father had lung cancer with lobectomy. She was a smoker Mother Family Medical History: Diabetes Mellitus, Hypertension Medications and Allergies Home Medications Medication Instructions Recorded Confirmed Type ALPRAZolam [Xanax] 0.25 mg PO TID PRN 10/09/19 12/08/21 History Ipratropium-Albuterol Nebulize 3 ml INHALATION RT-QID PRN 10/09/19 12/08/21 History [Duoneb 0.5 mg-3 mg/3 ml Soln] Latanoprost/Pf [Latanoprost 0.005% 1 drop BOTH EYES HS 10/09/19 12/08/21 History Eye Drop] Pravastatin Sodium [Pravachol] 20 mg PO HS 10/09/19 12/08/21 History Losartan Potassium [Cozaar] 50 mg PO DAILY 10/21/20 12/08/21 History hydroCHLOROthiazide [Hydrodiuril] 25 mg PO DAILY 10/21/20 12/08/21 History Albuterol Sulfate [Albuterol 2 puff INHALATION RT-Q4H PRN 12/08/21 12/08/21 History Sulfate Hfa] Cholecalciferol [Vitamin D3 (25 25 mcg PO DAILY 12/08/21 12/08/21 History Mcg = 1000 Iu)] Zinc 50 mg PO DAILY 12/08/21 12/08/21 History Fluticasone/Umeclidin/Vilanter 1 puff INHALATION RT-DAILY 12/09/21 12/09/21 History [Trelegy Ellipta 100-62.5-25] Allergies Allergy/AdvReac Type Severity Reaction Status Date / Time Penicillins Allergy Unknown Verified 12/08/21 22:30 Physical Exam Vitals: Vital Signs Temp Pulse Resp BP Pulse Ox 12/09/21 09:39 98.1 F 96 20 125/64 92 L 12/09/21 08:25 85 22 12/09/21 08:17 73 23 12/09/21 06:00 81 18 120/74 94 L 12/09/21 05:00 81 24 115/60 94 L 12/09/21 04:00 97 24 119/87 94 L 12/09/21 02:00 98 18 93/54 94 L 12/09/21 00:00 112 H 24 120/74 96 12/08/21 23:10 123 H 30 H 121/68 96 12/08/21 23:08 123 H 12/08/21 22:27 137 H 12/08/21 22:11 98.2 F 137 H 18 133/89 98 Intake and Output 12/08/21 12/09/21 12/09/21 22:59 06:59 14:59 Other: Weight 75.296 kg Gen. appearance, the patient is slightly anxious, she is unable to complete full sentences. No signs of any CO2 narcosis. She is not using excessive muscle breathing. Head exam was generally normal. There was no scleral icterus or corneal arcus. Mucous membranes were moist. Neck was supple and without jugular venous distension, thyromegaly, or carotid bruits. Carotids were easily palpable bilaterally. There was no adenopathy. Lungs sounds are diminished and the patient has diffuse expiratory wheezes throughout the lung haile bilaterally and prolongation of the exhalation phase of breathing. Cardiac exam revealed the PMI to be normally situated and sized. The rhythm was regular and no extrasystoles were noted during several minutes of auscultation. The first and second heart sounds were normal and physiologic splitting of the second heart sound was noted. There were no murmurs, rubs, clicks, or gallops. Abdominal exam revealed normal bowel sounds. The abdomen was soft, non-tender, and without masses, organomegaly, or appreciable enlargement of the abdominal aorta. Examination of the extremities revealed easily palpable radial, femoral and pedal pulses. There was no cyanosis, clubbing or edema. Examination of the skin revealed no evidence of significant rashes, suspicious appearing nevi or other concerning lesions. Neurologically, the patient is awake and alert and the patient does not have any focal neurological deficit. Cranial nerves are essentially intact. Results - Laboratory Findings CBC and BMP: 12/09/21 04:22 12/09/21 04:22 PT/INR, D-dimer PT 10.1 sec (9.0-12.0) 12/08/21 22:27 INR 0.9 (<1.2) 12/08/21 22:27 Abnormal lab findings: Abnormal Labs 12/08/21 12/08/21 12/08/21 22:27 22:27 22:27 WBC 17.9 H MCHC Neutrophils # 11.7 H Lymphocytes # Monocytes # 1.1 H Basophils # 0.3 H APTT 20.7 L Chloride 96 L Carbon Dioxide 38 H BUN 29 H Creatinine 1.31 H Glucose 127 H Phosphorus Total Protein 8.3 H 12/09/21 12/09/21 04:22 04:22 WBC 15.5 H MCHC 29.9 L Neutrophils # 14.7 H Lymphocytes # 0.6 L Monocytes # Basophils # APTT Chloride Carbon Dioxide 35 H BUN 33 H Creatinine 1.43 H Glucose 204 H Phosphorus 4.9 H Total Protein - Diagnostic Findings Chest x-ray: image reviewed Assessment and Plan Plan: 1 acute COPD exacerbation with secondary shortness of breath. The exact exacerbating factors is possibly exposure to chemicals at home/bleach/cleaning products. There are some atelectatic changes in the right midlung versus fluid in the fissure. No evidence of any pneumonia. The patient has not been vaccinated for COVID 19. 2 acute on chronic hypoxic respiratory failure currently on 4 L 0 2 by nasal cannula secondary to above 3 advanced COPD with an FEV1 of 27% of predicted at baseline 4 glucoma 5 chronic anxiety/depression Plan We will supplement the patient with O2 at 4 L Keep the BiPAP at the bedside and can be used on an as-needed basis at the pressures of 12/6 cm of water. Continue DuoNeb nebulized treatment [id number] IV Solu-Medrol Xanax 0.5 mg every 6 hours on an as-needed basis Resumed Trelegy Ellipta from home No need for antibiotics Given 1 dose of Lasix 40 mg IV push Resume all medications including her eyedrops Heparin subcu for DVT prophylaxis We'll continue to follow.
[2021-12-09] MEDS: ALPRAZolam 0.25 MG TAB PO PRN ×2 (13:16→21:24)
[2021-12-09] MEDS: VIT A,C & E-LUTEIN-MINERALS 1 EACH TAB PO SCH ×2 (15:11→21:19)
[2021-12-09] MEDS: SODIUM CHLORIDE 0.9% 1,000 ML IV SCH (17:54)
[2021-12-09] MEDS: HEPARIN SODIUM,PORCINE/PF 5,000 UNIT/0.5 ML SYRINGE SQ SCH (18:15)
[2021-12-09] MEDS: PRAVASTATIN SODIUM 20 MG TAB PO SCH (21:19)
[2021-12-09] MEDS: LATANOPROST 0.005% OPHTH DROPS 2.5 ML BTL BOTH EYES SCH (21:24)
--- NOTE | 2021-12-09 22:17 | P.HPIM ---
History of Present Illness H&P Date: 12/09/21 Chief Complaint: MOE Patient is a 81-year-old female with a known history of COPD, hypertension, hyperlipidemia, chronic hypoxic respiratory failure on home oxygen at 2 to 3 L via nasal cannula, history of bowel resection due to abscess, atypical MS from and currently some day smoker presents to ER with complaints of worsening shortness of breath and respiratory distress on arrival. Patient was initially requiring BiPAP and currently transitioned to nasal cannula oxygen. Chest x-ray showed there is some mild pleural reaction of fluid on the right side which is mostly new compared to old exam. No obvious heart failure. EKG showed sinus tachycardia. Laboratory data showed WBC 17.9 hemoglobin 14.1 platelets 313 Sodium 143 potassium 4.1 chloride 96 bicarb is 38 BUN 29 creatinine 1.31 and troponin x3 - proBNP 60. Review of Systems Constitutional: Patient denies any fever or chills . No generalized weakness or weight loss. Abdomen: Patient denied nausea vomiting and diarrhea and abdominal pain. Cardiovascular: Patient denies any chest pain or short of breath no palpitations. Respiratory: Patient does have cough and unable to bring out sputum. Shortness breath.. Neurologic: Patient denied any numbness or tingling headache. Musculoskeletal: Patient denies any complaints of joint swelling or deformity. Skin: Negative Psychiatric: Negative Endocrine: No heat or cold intolerance. No recent weight gain. Genitourinary: No dysuria or hematuria. 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 She uses a rolling walker. She has home oxygen/nebulizer. She drives. Smoking Status: Current some day smoker Past Alcohol Use History: None Reported Additional Past Alcohol Use History / Comment(s): Pt started smoking in 1957 and is a ppd smoker. Past Drug Use History: None Reported - Past Family History Father Family Medical History: Cancer, Hypertension Additional Family Medical History / Comment(s): Father had lung cancer with lobectomy. She was a smoker Mother Family Medical History: Diabetes Mellitus, Hypertension Medications and Allergies Home Medications Medication Instructions Recorded Confirmed Type ALPRAZolam [Xanax] 0.25 mg PO TID PRN 10/09/19 12/08/21 History Ipratropium-Albuterol Nebulize 3 ml INHALATION RT-QID PRN 10/09/19 12/08/21 His tory [Duoneb 0.5 mg-3 mg/3 ml Soln] Latanoprost/Pf [Latanoprost 0.005% 1 drop BOTH EYES HS 10/09/19 12/08/21 History Eye Drop] Pravastatin Sodium [Pravachol] 20 mg PO HS 10/09/19 12/08/21 History Losartan Potassium [Cozaar] 50 mg PO DAILY 10/21/20 12/08/21 History hydroCHLOROthiazide [Hydrodiuril] 25 mg PO DAILY 10/21/20 12/08/21 History Albuterol Sulfate [Albuterol 2 puff INHALATION RT-Q4H PRN 12/08/21 12/08/21 History Sulfate Hfa] Cholecalciferol [Vitamin D3 (25 25 mcg PO DAILY 12/08/21 12/08/21 History Mcg = 1000 Iu)] Zinc 50 mg PO DAILY 12/08/21 12/08/21 History Fluticasone/Umeclidin/Vilanter 1 puff INHALATION RT-DAILY 12/09/21 12/09/21 History [[place] 100-62.5-25] Allergies Allergy/AdvReac Type Severity Reaction Status Date / Time Penicillins Allergy Unknown Verified 12/08/21 22:30 Physical Exam Vitals: Vital Signs Temp Pulse Resp BP Pulse Ox 12/09/21 09:39 98.1 F 96 20 125/64 92 L 12/09/21 08:25 85 22 12/09/21 08:17 73 23 12/09/21 06:00 81 18 120/74 94 L 12/09/21 05:00 81 24 115/60 94 L 12/09/21 04:00 97 24 119/87 94 L 12/09/21 02:00 98 18 93/54 94 L 12/09/21 00:00 112 H 24 120/74 96 12/08/21 23:10 123 H 30 H 121/68 96 12/08/21 23:08 123 H 12/08/21 22:27 137 H 12/08/21 22:11 98.2 F 137 H 18 133/89 98 Intake and Output 12/08/21 12/09/21 12/09/21 22:59 06:59 14:59 Other: Weight 75.296 kg PHYSICAL EXAMINATION: Patient is lying in the bed comfortably, no acute distress, awake alert and oriented.. HEENT: Normocephalic. Neck is supple. Pupils reactive. Nostrils clear. Oral cavity is moist. Neck reveals no JVD, carotid bruits, or thyromegaly. CHEST EXAMINATION: Trachea is central. Symmetrical expansion. Bilateral diffuse wheezing and scattered rhonchi.. CARDIAC: Normal S1, S2 with no gallops. No murmurs ABDOMEN: Soft. Bowel sounds normal. No organomegaly. No abdominal bruits. Extremities: reveal no edema. No clubbing or cyanosis Neurologically awake, alert, oriented x3 with well-coordinated movements. No focal deficits noted Skin: No rash or skin lesions. Psychiatric: Cooperative. Nonsuicidal., Anxiety. Musculoskeletal: No joint swelling or deformity. Normal range of motion. Results CBC & Chem 7: 12/09/21 04:22 12/09/21 04:22 Labs: Abnormal Lab Results - Last 24 Hours (Table) 12/08/21 12/08/21 12/08/21 Range/Units 22:27 22:27 22:27 WBC 17.9 H (3.8-10.6) k/uL MCHC (31.0-37.0) g/dL Neutrophils # 11.7 H (1.3-7.7) k/uL Lymphocytes # (1.0-4.8) k/uL Monocytes # 1.1 H (0-1.0) k/uL Basophils # 0.3 H (0-0.2) k/uL APTT 20.7 L (22.0-30.0) sec Chloride 96 L (98-107) mmol/L Carbon Dioxide 38 H (22-30) mmol/L BUN 29 H (7-17) mg/dL Creatinine 1.31 H (0.52-1.04) mg/dL Glucose 127 H (74-99) mg/dL Phosphorus (2.5-4.5) mg/dL Total Protein 8.3 H (6.3-8.2) g/dL 12/09/21 12/09/21 Range/Units 04:22 04:22 WBC 15.5 H (3.8-10.6) k/uL MCHC 29.9 L (31.0-37.0) g/dL Neutrophils # 14.7 H (1.3-7.7) k/uL Lymphocytes # 0.6 L (1.0-4.8) k/uL Monocytes # (0-1.0) k/uL Basophils # (0-0.2) k/uL APTT (22.0-30.0) sec Chloride (98-107) mmol/L Carbon Dioxide 35 H (22-30) mmol/L BUN 33 H (7-17) mg/dL Creatinine 1.43 H (0.52-1.04) mg/dL Glucose 204 H (74-99) mg/dL Phosphorus 4.9 H (2.5-4.5) mg/dL Total Protein (6.3-8.2) g/dL Thrombosis Risk Factor Assmnt - DVT/VTE Prophylaxis DVT/VTE Prophylaxis: Pharmacologic Prophylaxis ordered Assessment and Plan Assessment: Acute on chronic hypoxic respiratory failure requiring BiPAP on admission Acute COPD exacerbation Chronic hypoxic respiratory failure oxygen at 3 to 4 L via nasal cannula Advanced COPD Anxiety Acute kidney injury with creatinine level 1.31 on admission Leukocytosis DVT prophylaxis with heparin subcu Plan: Patient will be continued on Solu-Medrol 60 mg every 6 hourly and duo nebs and Symbicort. Continue with oxygen supplementation. Patient will be current on IV hydration and follow-up renal function. Continue with home medications and monitor closely. Pulmonary is on board. Time with Patient: Greater than 30
[2021-12-10] MEDS: HEPARIN SODIUM,PORCINE/PF 5,000 UNIT/0.5 ML SYRINGE SQ SCH ×4 (00:32→23:08)
[2021-12-10] MEDS: methylPREDNISolone SOD SUCCI 125 MG/2 ML VIAL IV SCH ×5 (00:32→23:07)
[2021-12-10] MEDS: SODIUM CHLORIDE 0.9% 1,000 ML IV SCH ×2 (04:42→11:53)
[2021-12-10] MEDS: VIT A,C & E-LUTEIN-MINERALS 1 EACH TAB PO SCH ×2 (07:55→23:07)
[2021-12-10] MEDS: DOXYCYCLINE 100 MG CAP PO SCH ×2 (07:55→23:07)
[2021-12-10] MEDS ORDERED: NON FORMULARY DRUG (Fluticasone/Umeclidin/Vilanter [Trelegy Ellipta 100-62.5-25] 1 EACH Bl INHALATION SCH (08:00)
[2021-12-10] MEDS: ALBUTEROL NEBULIZED 2.5 MG/3 ML INHALATION SCH ×4 (08:05→20:27)
[2021-12-10] MEDS: IPRATROPIUM 0.5 MG/2.5 ML NEBU INHALATION SCH ×4 (08:05→20:27)
[2021-12-10] MEDS: IPRATROPIUM-ALBUTEROL 3 ML NEB INHALATION PRN ×3 (08:05→15:56)
[2021-12-10] MEDS: SYMBICORT 80-4.5 MCG INHALER INHALATION SCH ×3 (08:06→20:30)
--- NOTE | 2021-12-10 08:20 | XR ---
EXAMINATION TYPE: XR chest 1V portable DATE OF EXAM: 12/10/2021 COMPARISON: 12/09/2019 HISTORY: Shortness of breath TECHNIQUE: Single frontal view of the chest is obtained. FINDINGS: Linear density in the right midlung. Pulmonary artery appears prominent. Prominence the ri ght hilum. Coarsened interstitium. Heart size normal. Underlying COPD suspected. IMPRESSION: 1. COPD suspected chronic interstitial lung disease or pneumonitis. 2. Prominent right hilum could be related to prominent pulmonary artery, however, CT scan of the ches t is recommended to exclude mass or adenopathy.
[2021-12-10] MEDS: ALPRAZolam 0.25 MG TAB PO PRN ×2 (09:08→20:31)
[2021-12-10] MEDS ORDERED: SODIUM CHLORIDE 0.65% NASAL SPRAY 44 ML BTL NASAL PRN (11:28)
--- NOTE | 2021-12-10 11:28 | P.PN ---
Subjective Progress Note Date: 12/10/21 This is a very pleasant 81-year-old female patient, who is known to have severe COPD. The patient sees me in the office regarding her COPD. Her last pulmonate function test showed an FEV1 of 27% at baseline, 33% post bronchodilation. Diffusion capacity is around 35%. She has home O2 at 2.5 L per minute nasal cannula. I have her on Trelegy Ellipta one inhalation a day and the patient is also on albuterol nebulized treatments around the clock. She is very anxious and she is on a combination of Lexapro 10 mg by mouth and Xanax on an as-needed basis. She has had previous influenza A pneumonia from which she has recovered. She has chronic anxiety/depression. She also has hypertension as another comorbid condition. The patient comes in yesterday through emergency department because of worsening shortness of breath. She was quite dyspneic and tachypneic and immediately she was placed on a BiPAP at a pressure of 12/6 cm of water with an FiO2 of 40%. Currently she is weaned down to 4 L of oxygen by nasal cannula. She has bronchospastic and wheezy. She was started on bronchodilators. She was started on IV Solu-Medrol 60 mg IV push every 6 hours. Chest x-ray shows hyperinflation. There is no evidence of any acute pneumonia at this consistent with COPD. Thickening of the fissure on the right, possibly some mild component of fluid within the fissure versus platelike atelectasis in the right lung. No signs of any CO2 narcosis. No angina. No swelling lower extremities. The patient thinks that the exacerbating factor at this point is some cleaning products or was exposed at home. Refrigerator was moved by family members and underneath and refrigerator was being cleaned and the dust was being taken care of and following that, the patient became more short of breath. Today's evaluation, the patient is still struggling with her breathing and she has excessive cough and congestion that's been associated with along with her COPD exacerbation. She remains anxious. No chest pain. No CO2 narcosis. No altered mentation. She is taking her bronchodilators. His sleep was limited as the patient was anxious and she was still in the emergency department which was not the ideal place to take a sleep. Her creatinine today is at 1.4 with a mean of 33. Sodium is at 143. The patient's white cell count of 15.5 with a hemoglobin of 13.0. The patient remains on bronchodilators. The patient remains on IV fluids pH is taking normal saline at the rate of 75 mL an hour. Objective - Vital Signs Vital signs: Vital Signs Temp 98.2 F 12/10/21 10:06 Pulse 96 12/10/21 11:14 Resp 20 12/10/21 10:06 BP 115/67 12/10/21 10:06 Pulse Ox 94 L 12/10/21 10:06 Intake & Output 12/09/21 12/10/21 12/10/21 18:59 06:59 18:59 Intake Total 900 0 Balance 900 0 Weight 75.296 kg Intake: Intake, IV Titration 0 Amount Sodium Chloride 0.9% 1, 0 000 ml @ 75 mls/hr IV . [id number] [facility] Rx#:[id number] Oral 900 Other: Voiding Method Toilet Toilet # Voids 2 - Exam Gen. appearance, the patient is slightly anxious, she is unable to complete full sentences. No signs of any CO2 narcosis. She is not using excessive muscle breathing. Head exam was generally normal. There was no scleral icterus or corneal arcus. Mucous membranes were moist. Neck was supple and without jugular venous distension, thyromegaly, or carotid bruits. Carotids were easily palpable bilaterally. There was no adenopathy. Lungs sounds are diminished and the patient has diffuse expiratory wheezes throughout the lung haile bilaterally and prolongation of the exhalation phase of breathing. Cardiac exam revealed the PMI to be normally situated and sized. The rhythm was regular and no extrasystoles were noted during several minutes of auscultation. The first and second heart sounds were normal and physiologic splitting of the second heart sound was noted. There were no murmurs, rubs, clicks, or gallops. Abdominal exam revealed normal bowel sounds. The abdomen was soft, non-tender, and without masses, organomegaly, or appreciable enlargement of the abdominal aorta. Examination of the extremities revealed easily palpable radial, femoral and pedal pulses. There was no cyanosis, clubbing or edema. Examination of the skin revealed no evidence of significant rashes, suspicious appearing nevi or other concerning lesions. Neurologically, the patient is awake and alert and the patient does not have any focal neurological deficit. Cranial nerves are essentially intact. - Labs CBC & Chem 7: 12/09/21 04:22 12/09/21 04:22 Assessment and Plan Plan: 1 acute COPD exacerbation with secondary shortness of breath. The exact exace rbating factors is possibly exposure to chemicals at home/bleach/cleaning products. There are some atelectatic changes in the right midlung versus fluid in the fissure. No evidence of any pneumonia. The patient has not been vaccinated for COVID 19. 2 acute on chronic hypoxic respiratory failure currently on 4 L 0 2 by nasal cannula secondary to above 3 advanced COPD with an FEV1 of 27% of predicted at baseline 4 glucoma 5 chronic anxiety/depression Plan We will supplement the patient with O2 at 2-4 L Add Mucinex DM Ambien 10 mg qhs Continue DuoNeb nebulized treatment [id number] IV Solu-Medrol Xanax 0.5 mg every 6 hours on an as-needed basis Resumed Trelegy Ellipta from home Continue Doxycycline NSS 75 cc/hr Monitor creatinine nasal saline Resume all medications including her eyedrops Heparin subcu for DVT prophylaxis We'll continue to follow.
[2021-12-10] MEDS: guaiFENesin-DM 600/30MG 1 EACH TAB.ER.12H PO SCH ×2 (11:52→23:07)
[2021-12-10 15:02] LABS: Anion Gap 16.8 mmol/L (10.00-18.00); BUN/Creat Ratio 40.56 Ratio (12.00-20.00); Blood Urea Nitrogen 36.5 mg/dL (9.0-27.0); Calcium 9.6 mg/dL (8.7-10.3); Carbon Dioxide 25.2 mmol/L (20.0-27.5); Non-African American GFR(CKD) 59.5 (60.0-200.0); Potassium 4.8 mmol/L (3.5-5.5)
[2021-12-10 16:26] LABS: Basophils # (A) 0.04 X 10*3/uL (0.00-0.10); Basophils % (A) 0.2 %; Eosinophils # (A) 0.04 X 10*3/uL (0.04-0.35); Eosinophils % (A) 0.2 %; HCT 43.3 % (37.2-46.3); HGB 12.9 g/dL (12.0-15.0); Immature Grans, Automated 0.8 %; Lymphocytes # (A) 0.81 X 10*3/uL (0.90-5.00); Lymphocytes % (A) 3.8 %; MCH 28.2 pg (27.0-32.0); MCHC 29.8 g/dL (32.0-37.0); MCV 94.7 fL (80.0-97.0); Monocytes # (A) 0.68 X 10*3/uL (0.20-1.00); Monocytes % (A) 3.2 %; NRBC Per 100 WBC 0 /100 WBCS (0.0-0.0); Neutrophils # (A) 19.52 X 10*3/uL (1.80-7.70); Neutrophils % (A) 91.8 %; Platelet Count 152 X 10*3/uL (140-440); RBC 4.57 X 10*6/uL (4.10-5.20); RDW 15.6 % (11.5-14.5); WBC 21.27 X 10*3/uL (4.50-10.00)
[2021-12-10 16:27] LABS: RBC Morphology NORMAL
[2021-12-10] MEDS ORDERED: methylPREDNISolone SOD SUCCI 125 MG/2 ML VIAL IV SCH (18:00)
[2021-12-10] MEDS: PRAVASTATIN SODIUM 20 MG TAB PO SCH (20:33)
[2021-12-10] MEDS: LATANOPROST 0.005% OPHTH DROPS 2.5 ML BTL BOTH EYES SCH (20:33)
[2021-12-10] MEDS: ZOLPIDEM 5 MG TAB PO PRN (23:12)
--- NOTE | 2021-12-10 23:51 | P.PN ---
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 Patient was initially requiring BiPAP and currently transitioned to nasal cannula oxygen. Chest x-ray showed there is some mild pleural reaction of fluid on the right side which is mostly new compared to old exam. No obvious heart failure. EKG showed sinus tachycardia. Laboratory data showed WBC 17.9 hemoglobin 14.1 platelets 313 Sodium 143 potassium 4.1 chloride 96 bicarb is 38 BUN 29 creatinine 1.31 and troponin x3 - proBNP 60. 12/10/2021 Patient is seen in follow up this morning and being closely monitored by pulmonary. Patient continues on 2-3 L of 02 via NC. Off bipap. Patient is extremely anxious on exam. Patient is tearful as well. WBC increased and patient on doxycycline. Patient is afebrile. Patient also continues on IV steroids and breathing inhalational treatments and will continue. Covid 19 ordered. Review of systems: Constitutional: No reports of fatigue, fever, or chills, reports anxiety Cardiovascular: No reports of chest pain or palpitations Respiratory: reports of shortness of breath and cough with drainage GI: no reports of nausea, no reports of of vomiting, no reports of diarrhea : No reports of dysuria or retention Neurovascular: no reports of generalized weakness All medications have been reviewed Active Medications Albuterol Sulfate (Albuterol Nebulized 2.5 Mg/3 Ml) 5 mg INHALATION RT-QID [facility] Last Admin: 12/10/21 20:27 Dose: 5 mg Documented by: Albuterol/Ipratropium (Ipratropium-Albuterol 3 Ml Neb) 3 ml INHALATION RT-Q4H PRN PRN Reason: Shortness Of Breath Or Wheezing Last Admin: 12/10/21 15:56 Dose: 3 ml Documented by: Alprazolam (Alprazolam 0.25 Mg Tab) 0.25 mg PO TID PRN PRN Reason: Anxiety Last Admin: 12/10/21 20:31 Dose: 0.25 mg Documented by: Budesonide/Formoterol Fumarate (Symbicort 80-4.5 Mcg Inhaler) 2 puff INHALATION RT-BID [facility] Last Admin: 12/10/21 20:30 Dose: 2 puff Documented by: Doxycycline Monohydrate (Doxycycline 100 Mg Cap) 100 mg PO BID [facility]; Protocol Last Admin: 12/10/21 23:07 Dose: 100 mg Documented by: Guaifenesin/Dextromethorphan (Guaifenesin-Dm 600/30mg 1 Each Tab.Er.12h) 1 each PO Q12HR [facility] Last Admin: 12/10/21 23:07 Dose: 1 each Documented by: Heparin Sodium (Porcine) (Heparin Sodium,Porcine/Pf 5,000 Unit/0.5 Ml Syringe) 5,000 unit SQ Q8HR [facility] Last Admin: 12/10/21 23:08 Dose: 5,000 unit Documented by: Sodium Chloride (Saline 0.9%) 1,000 mls @ 75 mls/hr IV .[id number] [facility] Last Admin: 12/10/21 11:53 Dose: Not Given Documented by: Ipratropium [place] (Ipratropium 0.5 Mg/2.5 Ml Nebu) 0.5 mg INHALATION RT-QID [facility] Last Admin: 12/10/21 20:27 Dose: 0.5 mg Documented by: Latanoprost (Latanoprost 0.005% Ophth Drops 2.5 Ml Btl) 1 drops BOTH EYES HS [facility] Last Admin: 12/10/21 20:33 Dose: 1 drops Documented by: Methylprednisolone Sodium Succinate (Methylprednisolone Sod Succi 125 Mg/2 Ml Vial) 60 mg IV Q6HR [facility] Last Admin: 12/10/21 23:07 Dose: 60 mg Documented by: Morphine Sulfate (Morphine Sulfate 2 Mg/Ml Syringe) 2 mg IVP Q4HR PRN PRN Reason: Pain/Discomfort Morphine Sulfate (Morphine Sulfate 4 Mg/Ml Syringe) 4 mg IV Q4HR PRN PRN Reason: Severe Pain Multivitamins/Minerals (Vit A,C & K-Wpqpqj-Bqbfvdxd 1 Each Tab) 1 each PO BID [facility] Last Admin: 12/10/21 23:07 Dose: 1 each Documented by: Naloxone HCl (Naloxone 0.4 Mg/Ml 1 Ml Vial) 0.2 mg IV Q2M PRN PRN Reason: Opioid Reversal Ondansetron HCl (Ondansetron 4 Mg/2 Ml Vial) 4 mg IVP Q8HR PRN PRN Reason: Nausea And Vomiting Pravastatin Sodium (Pravastatin Sodium 20 Mg Tab) 20 mg PO HS [facility] Last Admin: 12/10/21 20:33 Dose: 20 mg Documented by: Sodium Chloride (Sodium Chloride 0.65% Nasal [place] 44 Ml Btl) 2 spray NASAL QID PRN PRN Reason: Dry Nasal Passages Zolpidem Tartrate (Zolpidem 5 Mg Tab) 5 mg PO HS PRN PRN Reason: Insomnia Last Admin: 12/10/21 23:12 Dose: 5 mg Documented by: PHYSICAL EXAMINATION: GENERAL: The patient is alert and oriented x4, Well developed, well nourished. anxious and tearful on exam HEENT: Pupils are round and equally reacting to light. EOMI. no scleral icterus. No conjunctival pallor. Normocephalic, atraumatic. No pharyngeal erythema. No thyromegaly. CARDIOVASCULAR: S1 and S2 muffled PULMONARY: diminished breath sounds bilaterally with wheezing and rhonchi noted. ABDOMEN: soft. Nontender on exam. non-distended, normoactive bowel sounds. No palpable organomegaly. MUSCULOSKELETAL: No joint swelling or deformity. EXTREMITIES: No cyanosis, clubbing, or edema noted NEUROLOGICAL: Gross neurological examination did not reveal any focal deficits. SKIN: No rashes. Assessment: Acute on chronic hypoxic respiratory failure requiring BiPAP on admission Acute COPD exacerbation Chronic hypoxic respiratory failure oxygen at 3 to 4 L via nasal cannula Advanced COPD Anxiety Acute kidney injury with creatinine level 1.31 on admission Leukocytosis DVT prophylaxis with heparin subcu No code Plan: Patient will be continued on Solu-Medrol 60 mg every 6 hourly and duo nebs and Symbicort. Continue with oxygen supplementation. Continue oral doxycycline Wean FI02 as tolerated, currently at 2.5-3 L via NC, humidification ordered. Recommend close monitoring of IV fluids and will repeat am labs. Home medications resumed Pulmonary following Covid testing was negative Prognosis is guarded The impression and plan of care has been dictated by Kirsten Byrd, nurse practitioner as directed. Dr. Juliane MD I have performed a history and examination and MDM of this patient, discussed the same with the dictator, and agree with the dictator's assessment and plan as written ,documented as a scribe. Based on total visit time, I have performed more than 50% of the visit. Objective - Vital Signs Vital signs: Vital Signs Temp 97.0 F L 12/09/21 20:17 Pulse 117 H 12/10/21 08:23 Resp 22 12/10/21 09:00 BP 157/78 12/10/21 02:58 Pulse Ox 91 L 12/10/21 02:58 Intake & Output 12/09/21 12/10/21 12/10/21 18:59 06:59 18:59 Intake Total 900 0 Balance 900 0 Weight 75.296 kg Intake: Intake, IV Titration 0 Amount Sodium Chloride 0.9% 1, 0 000 ml @ 75 mls/hr IV . [id number] [facility] Rx#:[id number] Oral 900 Other: Voiding Method Toilet Toilet # Voids 2 - Labs CBC & Chem 7: 12/10/21 06:36 12/10/21 06:36
[2021-12-11] MEDS: SODIUM CHLORIDE 0.9% 1,000 ML IV SCH ×2 (05:44→05:49)
[2021-12-11] MEDS: methylPREDNISolone SOD SUCCI 125 MG/2 ML VIAL IV SCH ×4 (05:44→21:57)
[2021-12-11 06:30] LABS: Basophils % (A) 0 %; Eosinophils % (A) 0 %; HCT 38.3 % (34.0-46.0); HGB 11.9 gm/dL (11.4-16.0); Hypochromasia Slight; Lymphocytes # (A) 0.7 k/uL (1.0-4.8); Lymphocytes % (A) 4 %; MCH 29.1 pg (25.0-35.0); MCV 93.9 fL (80.0-100.0); Mean Platelet Volume 7.7; Monocytes # (A) 0.5 k/uL (0-1.0); Monocytes % (A) 3 %; Neutrophils # (A) 16.8 k/uL (1.3-7.7); Neutrophils % (A) 93 %; Platelet Count 252 k/uL (150-450); RBC 4.08 m/uL (3.80-5.40); RDW 14.6 % (11.5-15.5); WBC 18.1 k/uL (3.8-10.6)
[2021-12-11 06:38] LABS: African American GFR (CKD) 77 (>60 ml/min/1.73 sqM); Anion Gap 2 mmol/L; Blood Urea Nitrogen 44 mg/dL (7-17); Calcium 8.9 mg/dL (8.4-10.2); Carbon Dioxide 34 mmol/L (22-30); Chloride 101 mmol/L (98-107); Glucose 126 mg/dL (74-99); Non-African American GFR(CKD) 67 (>60 ml/min/1.73 sqM); Potassium 4.8 mmol/L (3.5-5.1); Sodium 137 mmol/L (137-145)
[2021-12-11] MEDS: ALBUTEROL NEBULIZED 2.5 MG/3 ML INHALATION SCH ×4 (08:20→19:48)
[2021-12-11] MEDS: IPRATROPIUM 0.5 MG/2.5 ML NEBU INHALATION SCH ×4 (08:20→19:48)
[2021-12-11] MEDS: IPRATROPIUM-ALBUTEROL 3 ML NEB INHALATION PRN ×4 (08:21→19:48)
[2021-12-11] MEDS: SYMBICORT 80-4.5 MCG INHALER INHALATION SCH ×2 (08:21→19:47)
[2021-12-11] MEDS: HEPARIN SODIUM,PORCINE/PF 5,000 UNIT/0.5 ML SYRINGE SQ SCH ×3 (08:40→21:51)
[2021-12-11] MEDS: DOXYCYCLINE 100 MG CAP PO SCH ×2 (08:41→21:50)
[2021-12-11] MEDS: VIT A,C & E-LUTEIN-MINERALS 1 EACH TAB PO SCH ×2 (08:41→21:51)
[2021-12-11] MEDS: guaiFENesin-DM 600/30MG 1 EACH TAB.ER.12H PO SCH ×2 (08:41→21:50)
[2021-12-11] MEDS ORDERED: FUROSEMIDE 10 MG/ML 4 ML VIAL IV STA (11:28)
[2021-12-11 13:24] VITALS: BMI 28.5
--- NOTE | 2021-12-11 13:43 | P.PN ---
Subjective Progress Note Date: 12/11/21 This is a very pleasant 81-year-old female patient, who is known to have severe COPD. The patient sees me in the office regarding her COPD. Her last pulmonate function test showed an FEV1 of 27% at baseline, 33% post bronchodilation. Diffusion capacity is around 35%. She has home O2 at 2.5 L per minute nasal cannula. I have her on Trelegy Ellipta one inhalation a day and the patient is also on albuterol nebulized treatments around the clock. She is very anxious and she is on a combination of Lexapro 10 mg by mouth and Xanax on an as-needed basis. She has had previous influenza A pneumonia from which she has recovered. She has chronic anxiety/depression. She also has hypertension as another comorbid condition. The patient comes in yesterday through emergency department because of worsening shortness of breath. She was quite dyspneic and tachypneic and immediately she was placed on a BiPAP at a pressure of 12/6 cm of water with an FiO2 of 40%. Currently she is weaned down to 4 L of oxygen by nasal cannula. She has bronchospastic and wheezy. She was started on bronchodilators. She was started on IV Solu-Medrol 60 mg IV push every 6 hours. Chest x-ray shows hyperinflation. There is no evidence of any acute pneumonia at this consistent with COPD. Thickening of the fissure on the right, possibly some mild component of fluid within the fissure versus platelike atelectasis in the right lung. No signs of any CO2 narcosis. No angina. No swelling lower extremities. The p atient thinks that the exacerbating factor at this point is some cleaning products or was exposed at home. Refrigerator was moved by family members and underneath and refrigerator was being cleaned and the dust was being taken care of and following that, the patient became more short of breath. Today's evaluation, the patient is still struggling with her breathing and she has excessive cough and congestion that's been associated with along with her COPD exacerbation. She remains anxious. No chest pain. No CO2 narcosis. No altered mentation. She is taking her bronchodilators. His sleep was limited as the patient was anxious and she was still in the emergency department which was not the ideal place to take a sleep. Her creatinine today is at 1.4 with a mean of 33. Sodium is at 143. The patient's white cell count of 15.5 with a hemoglobin of 13.0. The patient remains on bronchodilators. The patient remains on IV fluids pH is taking normal saline at the rate of 75 mL an hour. The patient is seen today 12/11/2021 in follow-up on the regular medical floor. She is currently sitting up in a chair at the bedside. Awake and alert in no acute distress. Maintaining O2 saturations in the 90s on 2-1/2 L/m per nasal cannula. She's been afebrile. White count 18.1. Hemoglobin 11.9. Sodium 137. Potassium 4.8. Bicarb 34. BUN 44. Creatinine 0.82. Burkett virus by PCR not detected. She is continued on DuoNeb inhalations, Symbicort, IV Solu-Medrol and Mucinex. Antibiotics in the form of doxycycline. Heparin for DVT prophylaxis. Xanax as needed for her anxiety. Objective - Vital Signs Vital signs: Vital Signs Temp 98.4 F 12/11/21 07:50 Pulse 100 12/11/21 12:49 Resp 20 12/11/21 08:34 BP 147/88 12/11/21 07:50 Pulse Ox 96 12/11/21 12:44 Intake & Output 12/10/21 12/11/21 12/11/21 18:59 06:59 18:59 Weight 75.296 kg Other: Voiding Method Toilet Toilet # Voids 1 - Exam Gen. appearance, alert, oriented pleasant 81-year-old female patient. No signs of any CO2 narcosis. She is not using excessive muscle breathing. Head exam was generally normal. There was no scleral icterus or corneal arcus. Mucous membranes were moist. Neck was supple and without jugular venous distension, thyromegaly, or carotid bruits. Carotids were easily palpable bilaterally. There was no adenopathy. Lungs sounds are diminished and the patient has expiratory wheezes throughout the lung haile bilaterally and prolongation of the exhalation phase of breathing. Cardiac exam revealed the PMI to be normally situated and sized. The rhythm was regular and no extrasystoles were noted during several minutes of auscultation. The first and second heart sounds were normal and physiologic splitting of the second heart sound was noted. There were no murmurs, rubs, clicks, or gallops. Abdominal exam revealed normal bowel sounds. The abdomen was soft, non-tender, and without masses, organomegaly, or appreciable enlargement of the abdominal aorta. Examination of the extremities revealed easily palpable radial, femoral and pedal pulses. There was no cyanosis, clubbing or edema. Examination of the skin revealed no evidence of significant rashes, suspicious appearing nevi or other concerning lesions. Neurologically, the patient is awake and alert and the patient does not have any focal neurological deficit. Cranial nerves are essentially intact. - Labs CBC & Chem 7: 12/11/21 05:19 12/11/21 05:19 Labs: Abnormal Lab Results - Last 24 Hours (Table) 12/10/21 12/10/21 12/11/21 Range/Units 06:36 06:36 05:19 WBC 21.27 H 18.1 H (4.50-10.00) X 10*3/uL MCHC 29.8 L (32.0-37.0) g/dL RDW 15.6 H (11.5-14.5) % Immature Gran # 0.18 H (0.00-0.04) X 10*3/uL Neutrophils # 19.52 H 16.8 H (1.80-7.70) X 10*3/uL Lymphocytes # 0.81 L 0.7 L (0.90-5.00) X 10*3/uL Carbon Dioxide (22-30) mmol/L BUN 36.5 H (9.0-27.0) mg/dL Est GFR (CKD-EPI)NonAf 59.5 L (60.0-200.0) BUN/Creatinine Ratio 40.56 H (12.00-20.00) Ratio Glucose 129 H (70-110) mg/dL 12/11/21 Range/Units 05:19 WBC (4.50-10.00) X 10*3/uL MCHC (32.0-37.0) g/dL RDW (11.5-14.5) % Immature Gran # (0.00-0.04) X 10*3/uL Neutrophils # (1.80-7.70) X 10*3/uL Lymphocytes # (0.90-5.00) X 10*3/uL Carbon Dioxide 34 H (22-30) mmol/L BUN 44 H (9.0-27.0) mg/dL Est GFR (CKD-EPI)NonAf (60.0-200.0) BUN/Creatinine Ratio (12.00-20.00) Ratio Glucose 126 H (70-110) mg/dL Assessment and Plan Assessment: 1 acute COPD exacerbation with secondary shortness of breath. The exact exacerbating factors is possibly exposure to chemicals at home/bleach/cleaning products. There are some atelectatic changes in the right midlung versus fluid in the fissure. No evidence of any pneumonia. The patient has not been vaccinated for COVID 19. 2 acute on chronic hypoxic respiratory failure currently on 4 L 0 2 by nasal cannula secondary to above 3 advanced COPD with an FEV1 of 27% of predicted at baseline 4 glucoma 5 chronic anxiety/depression Plan: The patient was seen and evaluated Labs reviewed Titrate the FiO2 as tolerated Continue IV Solu-Medrol, bronchodilators and Mucinex Continue empiric antibiotics in the form of doxycycline Xanax as needed for her anxiety Increase her activity as tolerated Echocardiogram pending We'll continue to follow I have personally seen and examined the patient, performed the documentation and the assessment and plan as written. Number of minutes spent on the visit: 10. I have personally seen and examined the patient and reviewed the documentation. I performed a joint evaluation with the nurse practitioner in this evaluation was done more than 20 minutes. I fully agree with the documentation above and the plan of care.. Continue with the same treatment. Sleep pattern is improved along with addition of Ambien. Anxiety levels are low with Xanax. Continue nasal saline. Continue bronchodilators. Continue steroids. Give the patient does of Lasix. We'll continue to follow. Cut down the IV fluids to KVO. Echo is pending.
[2021-12-11] MEDS: ALPRAZolam 0.25 MG TAB PO PRN ×2 (16:38→21:50)
--- NOTE | 2021-12-11 17:01 | ECHOF ---
Referral Reason:shortness of breath, lower extremity swelling MEASUREMENTS -------- HEIGHT: 162.6 cm WEIGHT: 75.3 kg BP: IVSd: 1.4 cm (0.6 - 1.1) LVIDd: 2.9 cm (3.9 - 5.3) LVPWd: 1.4 cm (0.6 - 1.1) IVSs: 1.8 cm LVIDs: 1.3 cm LVPWs: 1.8 cm RVIDd: 2.8 cm (< 3.3) Ao Diam: 3.3 cm (2.0 - 3.7) LA Diam: 2.5 cm (2.7 - 3.8) MV E Derek: 0.45 m/s MV DecT: 135 ms MV A Derek: 0.46 m/s MV E/A Ratio: 0.98 RAP: 5.00 mmHg RVSP: 9.13 mmHg %FS: 56.82 % EDV(Teich): 48.66 ml EF(Teich): 87.90 % ESV(Teich): 5.89 ml IVSd: 1.41 cm (0.6 - 1.1) IVSs: 1.84 cm LVIDd: 3.44 cm (3.9 - 5.3) LVIDs: 1.48 cm LVPWd: 1.44 cm (0.6 - 1.1) LVPWs: 2.19 cm SV(Teich): 42.77 ml FINDINGS -------- This was a technically difficult study with suboptimal views. Severe copd. Pt sitting up for test. The left ventricular size is normal. There is moderate concentric left ventricular hypertrophy. O verall left ventricular systolic function is normal with, an EF between 55 - 60 %. The right ventricle is normal in size. The left atrium was not well visualized. The right atrium was not well visualized. The aortic valve was not well visualized. The mitral valve was not well visualized. The tricuspid valve was not well visualized. Pulmonic valve appears structurally normal. The aortic root size is normal. IVC Not well visulized. There is no pericardial effusion. CONCLUSIONS -------- 1. Severe copd. Pt sitting up for test. 2. The left ventricular size is normal. 3. There is moderate concentric left ventricular hypertrophy. 4. Overall left ventricular systolic function is normal with, an EF between 55 - 60 %. 5. There is no pericardial effusion. DRILL INSTRUCTOR: Sirena Brown RDCS
[2021-12-11] MEDS: PRAVASTATIN SODIUM 20 MG TAB PO SCH (21:50)
[2021-12-11] MEDS: LATANOPROST 0.005% OPHTH DROPS 2.5 ML BTL BOTH EYES SCH (21:50)
[2021-12-11] MEDS: ZOLPIDEM 5 MG TAB PO PRN (21:55)
--- NOTE | 2021-12-12 06:21 | P.PN ---
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 Patient was initially requiring BiPAP and currently transitioned to nasal cannula oxygen. Chest x-ray showed there is some mild pleural reaction of fluid on the right side which is mostly new compared to old exam. No obvious heart failure. EKG showed sinus tachycardia. Laboratory data showed WBC 17.9 hemoglobin 14.1 platelets 313 Sodium 143 potassium 4.1 chloride 96 bicarb is 38 BUN 29 creatinine 1.31 and troponin x3 - proBNP 60. 12/10/2021 Patient is seen in follow up this morning and being closely monitored by pulmonary. Patient continues on 2-3 L of 02 via NC. Off bipap. Patient is extremely anxious on exam. Patient is tearful as well. WBC increased and patient on doxycycline. Patient is afebrile. Patient also continues on IV steroids and breathing inhalational treatments and will continue. Covid 19 ordered. 12/11/2021 Patient is seen in follow up this morning and is sitting up in the chair. Patient reports to better breathing if sitting up. Patient is maintained on 2.5 L via NC and also breathing inhalational treatments and IV steroids. Patient is reporting to having some lower extremity swelling. Will order 2d echo and IV lasix 40mg x1 for now. Labs within normal limits. WBC elevated most likely reactive and on high dose steroids. Patient denies chest pain or palpitations. Patient is afebrile. Patient tolerating diet with no nausea or vomiting noted. Encouraged increase activity as tolerated. Review of systems: Constitutional: No reports of fatigue, fever, or chills, reports anxiety Cardiovascular: No reports of chest pain or palpitations Respiratory: reports of shortness of breath and cough with phlegm on occasion GI: no reports of nausea, no reports of of vomiting, no reports of diarrhea : No reports of dysuria or retention Neurovascular: reports of generalized weakness and lower extremity swelling All medications have been reviewed Active Medications Albuterol Sulfate (Albuterol Nebulized 2.5 Mg/3 Ml) 5 mg INHALATION RT-QID [facility] Last Admin: 12/11/21 19:48 Dose: Not Given Documented by: Albuterol/Ipratropium (Ipratropium-Albuterol 3 Ml Neb) 3 ml INHALATION RT-Q4H PRN PRN Reason: Shortness Of Breath Or Wheezing Last Admin: 12/11/21 19:48 Dose: 3 ml Documented by: Alprazolam (Alprazolam 0.25 Mg Tab) 0.25 mg PO TID PRN PRN Reason: Anxiety Last Admin: 12/11/21 21:50 Dose: 0.25 mg Documented by: Budesonide/Formoterol Fumarate (Symbicort 80-4.5 Mcg Inhaler) 2 puff INHALATION RT-BID [facility] Last Admin: 12/11/21 19:47 Dose: 2 puff Documented by: Doxycycline Monohydrate (Doxycycline 100 Mg Cap) 100 mg PO BID [facility]; Protocol Last Admin: 12/11/21 21:50 Dose: 100 mg Documented by: Guaifenesin/Dextromethorphan (Guaifenesin-Dm 600/30mg 1 Each Tab.Er.12h) 1 each PO Q12HR [facility] Last Admin: 12/11/21 21:50 Dose: 1 each Documented by: Heparin Sodium (Porcine) (Heparin Sodium,Porcine/Pf 5,000 Unit/0.5 Ml Syringe) 5,000 unit SQ Q8HR [facility] Last Admin: 12/11/21 21:51 Dose: 5,000 unit Documented by: Ipratropium [place] (Ipratropium 0.5 Mg/2.5 Ml Nebu) 0.5 mg INHALATION RT-QID [facility] Last Admin: 12/11/21 19:48 Dose: Not Given Documented by: Latanoprost (Latanoprost 0.005% Ophth Drops 2.5 Ml Btl) 1 drops BOTH EYES HS GAUDENCIO Last Admin: 12/11/21 21:50 Dose: 1 drops Documented by: Methylprednisolone Sodium Succinate (Methylprednisolone Sod Succi 125 Mg/2 Ml Vial) 60 mg IV Q6HR [facility] Last Admin: 12/11/21 21:57 Dose: 60 mg Documented by: Morphine Sulfate (Morphine Sulfate 2 Mg/Ml Syringe) 2 mg IVP Q4HR PRN PRN Reason: Pain/Discomfort Morphine Sulfate (Morphine Sulfate 4 Mg/Ml Syringe) 4 mg IV Q4HR PRN PRN Reason: Severe Pain Multivitamins/Minerals (Vit A,C & R-Ihxtsr-Lavyqoxf 1 Each Tab) 1 each PO BID [facility] Last Admin: 12/11/21 21:51 Dose: 1 each Documented by: Naloxone HCl (Naloxone 0.4 Mg/Ml 1 Ml Vial) 0.2 mg IV Q2M PRN PRN Reason: Opioid Reversal Ondansetron HCl (Ondansetron 4 Mg/2 Ml Vial) 4 mg IVP Q8HR PRN PRN Reason: Nausea And Vomiting Pravastatin Sodium (Pravastatin Sodium 20 Mg Tab) 20 mg PO HS [facility] Last Admin: 12/11/21 21:50 Dose: 20 mg Documented by: Sodium Chloride (Sodium Chloride 0.65% Nasal [place] 44 Ml Btl) 2 spray NASAL QID PRN PRN Reason: Dry Nasal Passages Sodium Chloride (Sodium Chloride 0.9% Flush 10 Ml Syringe) 10 ml IV Q12HR [facility] Last Admin: 12/11/21 21:50 Dose: 10 ml Documented by: Sodium Chloride (Sodium Chloride 0.9% Flush 10 Ml Syringe) 10 ml IV DIRECTED PRN PRN Reason: FLUSH Zolpidem Tartrate (Zolpidem 5 Mg Tab) 5 mg PO HS PRN PRN Reason: Insomnia Last Admin: 12/11/21 21:55 Dose: 5 mg Documented by: PHYSICAL EXAMINATION: GENERAL: The patient is alert and oriented x4, Well developed, well nourished. anxious and tearful on exam HEENT: Pupils are round and equally reacting to light. EOMI. no scleral icterus. No conjunctival pallor. Normocephalic, atraumatic. No pharyngeal erythema. No thyromegaly. CARDIOVASCULAR: S1 and S2 muffled PULMONARY: diminished breath sounds bilaterally with wheezing and rhonchi noted. ABDOMEN: soft. Nontender on exam. non-distended, normoactive bowel sounds. No palpable organomegaly. MUSCULOSKELETAL: No joint swelling or deformity. EXTREMITIES: No cyanosis, clubbing, or edema noted NEUROLOGICAL: Gross neurological examination did not reveal any focal deficits. diffusely weak SKIN: No rashes. Assessment: Acute on chronic hypoxic respiratory failure requiring BiPAP on admission Acute COPD exacerbation Chronic hypoxic respiratory failure oxygen at 3 to 4 L via nasal cannula Advanced COPD Anxiety Acute kidney injury with creatinine level 1.31 on admission Leukocytosis DVT prophylaxis with heparin subcu No code Plan: Patient will be continued on Solu-Medrol 60 mg every 6 hourly and duo nebs and Symbicort. Continue with oxygen supplementation. Continue oral doxycycline Wean FI02 as tolerated, currently at 2.5-3 L via NC Recommend close monitoring of IV fluids and will repeat am labs. Home medications resumed Pulmonary following 2d echo ordered and pending and given a dose of IV lasix for lower extremity swelling Prognosis is guarded The impression and plan of care has been dictated by Kirsten Byrd, nurse practitioner as directed. Dr. Juliane MD I have performed a history and examination and MDM of this patient, discussed the same with the dictator, and agree with the dictator's assessment and plan as written ,documented as a scribe. Based on total visit time, I have performed more than 50% of the visit. Objective - Vital Signs Vital signs: Vital Signs Temp 98.4 F 12/11/21 07:50 Pulse 90 12/11/21 08:34 Resp 20 12/11/21 08:34 BP 147/88 12/11/21 07:50 Pulse Ox 95 12/11/21 08:21 Intake & Output 12/10/21 12/11/21 12/11/21 18:59 06:59 18:59 Other: Voiding Method Toilet Toilet # Voids 1 - Labs CBC & Chem 7: 12/11/21 05:19 12/11/21 05:19 Labs: Abnormal Lab Results - Last 24 Hours (Table) 12/10/21 12/10/21 12/11/21 Range/Units 06:36 06:36 05:19 WBC 21.27 H 18.1 H (4.50-10.00) X 10*3/uL MCHC 29.8 L (32.0-37.0) g/dL RDW 15.6 H (11.5-14.5) % Immature Gran # 0.18 H (0.00-0.04) X 10*3/uL Neutrophils # 19.52 H 16.8 H (1.80-7.70) X 10*3/uL Lymphocytes # 0.81 L 0.7 L (0.90-5.00) X 10*3/uL Carbon Dioxide (22-30) mmol/L BUN 36.5 H (9.0-27.0) mg/dL Est GFR (CKD-EPI)NonAf 59.5 L (60.0-200.0) BUN/Creatinine Ratio 40.56 H (12.00-20.00) Ratio Glucose 129 H (70-110) mg/dL 12/11/21 Range/Units 05:19 WBC (4.50-10.00) X 10*3/uL MCHC (32.0-37.0) g/dL RDW (11.5-14.5) % Immature Gran # (0.00-0.04) X 10*3/uL Neutrophils # (1.80-7.70) X 10*3/uL Lymphocytes # (0.90-5.00) X 10*3/uL Carbon Dioxide 34 H (22-30) mmol/L BUN 44 H (9.0-27.0) mg/dL Est GFR (CKD-EPI)NonAf (60.0-200.0) BUN/Creatinine Ratio (12.00-20.00) Ratio Glucose 126 H (70-110) mg/dL
[2021-12-12] MEDS: methylPREDNISolone SOD SUCCI 125 MG/2 ML VIAL IV SCH ×4 (06:28→22:32)
[2021-12-12 07:08] LABS: Basophils % (A) 0 %; Eosinophils % (A) 0 %; HCT 42.4 % (34.0-46.0); HGB 13.2 gm/dL (11.4-16.0); Hypochromasia Slight; Lymphocytes # (A) 0.7 k/uL (1.0-4.8); Lymphocytes % (A) 5 %; MCH 28.9 pg (25.0-35.0); MCHC 31.1 g/dL (31.0-37.0); Mean Platelet Volume 7.9; Monocytes # (A) 0.6 k/uL (0-1.0); Monocytes % (A) 4 %; Neutrophils # (A) 13.5 k/uL (1.3-7.7); Neutrophils % (A) 90 %; Platelet Count 305 k/uL (150-450); RBC 4.56 m/uL (3.80-5.40); RDW 14.7 % (11.5-15.5); WBC 14.9 k/uL (3.8-10.6)
[2021-12-12 07:17] LABS: African American GFR (CKD) 62 (>60 ml/min/1.73 sqM); Anion Gap 8 mmol/L; Blood Urea Nitrogen 55 mg/dL (7-17); Calcium 8.7 mg/dL (8.4-10.2); Carbon Dioxide 33 mmol/L (22-30); Chloride 100 mmol/L (98-107); Glucose 122 mg/dL (74-99); Non-African American GFR(CKD) 54 (>60 ml/min/1.73 sqM); Potassium 4.3 mmol/L (3.5-5.1); Sodium 141 mmol/L (137-145)
[2021-12-12] MEDS: VIT A,C & E-LUTEIN-MINERALS 1 EACH TAB PO SCH ×2 (08:44→22:32)
[2021-12-12] MEDS: HEPARIN SODIUM,PORCINE/PF 5,000 UNIT/0.5 ML SYRINGE SQ SCH ×3 (08:44→22:33)
[2021-12-12] MEDS: guaiFENesin-DM 600/30MG 1 EACH TAB.ER.12H PO SCH ×2 (08:44→22:32)
[2021-12-12] MEDS: DOXYCYCLINE 100 MG CAP PO SCH ×2 (08:44→22:32)
[2021-12-12] MEDS: ALPRAZolam 0.25 MG TAB PO PRN ×2 (08:54→18:44)
[2021-12-12] MEDS: IPRATROPIUM 0.5 MG/2.5 ML NEBU INHALATION SCH ×4 (10:01→20:21)
[2021-12-12] MEDS: SYMBICORT 80-4.5 MCG INHALER INHALATION SCH ×2 (10:01→20:21)
[2021-12-12] MEDS: ALBUTEROL NEBULIZED 2.5 MG/3 ML INHALATION SCH ×4 (10:01→20:21)
[2021-12-12] MEDS: FUROSEMIDE 10 MG/ML 4 ML VIAL IV SCH ×2 (11:16→22:33)
[2021-12-12] MEDS: CHOLECALCIFEROL 25 MCG (1000 IU) TABLET PO SCH (11:16)
[2021-12-12] MEDS: LOSARTAN 50 MG TAB PO SCH (11:16)
[2021-12-12] MEDS: METOPROLOL TARTRATE 12.5 MG TAB PO SCH ×2 (11:16→22:32)
[2021-12-12] MEDS: IPRATROPIUM-ALBUTEROL 3 ML NEB INHALATION PRN ×3 (13:19→20:22)
--- NOTE | 2021-12-12 14:28 | P.PN ---
Subjective Progress Note Date: 12/12/21 This is a very pleasant 81-year-old female patient, who is known to have severe COPD. The patient sees me in the office regarding her COPD. Her last pulmonate function test showed an FEV1 of 27% at baseline, 33% post bronchodilation. Diffusion capacity is around 35%. She has home O2 at 2.5 L per minute nasal cannula. I have her on Trelegy Ellipta one inhalation a day and the patient is also on albuterol nebulized treatments around the clock. She is very anxious and she is on a combination of Lexapro 10 mg by mouth and Xanax on an as-needed basis. She has had previous influenza A pneumonia from which she has recovered. She has chronic anxiety/depression. She also has hypertension as another comorbid condition. The patient comes in yesterday through emergency department because of worsening shortness of breath. She was quite dyspneic and tachypneic and immediately she was placed on a BiPAP at a pressure of 12/6 cm of water with an FiO2 of 40%. Currently she is weaned down to 4 L of oxygen by nasal cannula. She has bronchospastic and wheezy. She was started on bronchodilators. She was started on IV Solu-Medrol 60 mg IV push every 6 hours. Chest x-ray shows hyperinflation. There is no evidence of any acute pneumonia at this consistent with COPD. Thickening of the fissure on the right, possibly some mild component of fluid within the fissure versus platelike atelectasis in the right lung. No signs of any CO2 narcosis. No angina. No swelling lower extremities. The p atient thinks that the exacerbating factor at this point is some cleaning products or was exposed at home. Refrigerator was moved by family members and underneath and refrigerator was being cleaned and the dust was being taken care of and following that, the patient became more short of breath. Today's evaluation, the patient is still struggling with her breathing and she has excessive cough and congestion that's been associated with along with her COPD exacerbation. She remains anxious. No chest pain. No CO2 narcosis. No altered mentation. She is taking her bronchodilators. His sleep was limited as the patient was anxious and she was still in the emergency department which was not the ideal place to take a sleep. Her creatinine today is at 1.4 with a mean of 33. Sodium is at 143. The patient's white cell count of 15.5 with a hemoglobin of 13.0. The patient remains on bronchodilators. The patient remains on IV fluids pH is taking normal saline at the rate of 75 mL an hour. The patient is seen today 12/11/2021 in follow-up on the regular medical floor. She is currently sitting up in a chair at the bedside. Awake and alert in no acute distress. Maintaining O2 saturations in the 90s on 2-1/2 L/m per nasal cannula. She's been afebrile. White count 18.1. Hemoglobin 11.9. Sodium 137. Potassium 4.8. Bicarb 34. BUN 44. Creatinine 0.82. Burkett virus by PCR not detected. She is continued on DuoNeb inhalations, Symbicort, IV Solu-Medrol and Mucinex. Antibiotics in the form of doxycycline. Heparin for DVT prophylaxis. Xanax as needed for her anxiety. The patient is seen today 12/12/2021 in follow-up on the regular medical floor. She is awake and alert in no acute distress. Currently sitting up in a chair at the bedside. She is currently maintaining O2 saturations in the low 90s on 3 L/m per nasal cannula. Echocardiogram revealed preserved left ventricular systolic function with ejection fraction 55-60%. White count 14.9. Hemoglobin 13.2. Sodium 141. Potassium 4.3. BUN of 55. Creatinine 0.98. Glucose 122. She is continued on Symbicort, DuoNeb inhalations, no Mucinex, IV Solu-Medrol. Heparin for DVT prophylaxis. Remains on IV diuretics. Objective - Vital Signs Vital signs: Vital Signs Temp 98.0 F 12/12/21 08:00 Pulse 100 12/12/21 13:28 Resp 16 12/12/21 08:00 BP 143/73 12/12/21 08:00 Pulse Ox 90 L 12/12/21 08:00 Intake & Output 12/11/21 12/12/21 12/12/21 18:59 06:59 18:59 Weight 75.296 kg Other: Voiding Method Toilet # Voids 3 2 - Exam Gen. appearance, Alert, oriented pleasant 81-year-old female patient. On 3 L nasal cannula. No signs of any CO2 narcosis. She is not using excessive muscle breathing. Head exam was generally normal. There was no scleral icterus or corneal arcus. Mucous membranes were moist. Neck was supple and without jugular venous distension, thyromegaly, or carotid bruits. Carotids were easily palpable bilaterally. There was no adenopathy. Lungs sounds are diminished and the patient has expiratory wheezes throughout the lung haile bilaterally and prolongation of the exhalation phase of breathing. Cardiac exam revealed the PMI to be normally situated and sized. The rhythm was regular and no extrasystoles were noted during several minutes of auscultation. The first and second heart sounds were normal and physiologic splitting of the second heart sound was noted. There were no murmurs, rubs, clicks, or gallops. Abdominal exam revealed normal bowel sounds. The abdomen was soft, non-tender, and without masses, organomegaly, or appreciable enlargement of the abdominal aorta. Examination of the extremities revealed easily palpable radial, femoral and pedal pulses. There was no cyanosis, clubbing or edema. Examination of the skin revealed no evidence of significant rashes, suspicious appearing nevi or other concerning lesions. Neurologically, the patient is awake and alert and the patient does not have any focal neurological deficit. Cranial nerves are essentially intact. - Labs CBC & Chem 7: 12/12/21 06:37 12/12/21 06:37 Labs: Abnormal Lab Results - Last 24 Hours (Table) 12/12/21 12/12/21 Range/Units 06:37 06:37 WBC 14.9 H (3.8-10.6) k/uL Neutrophils # 13.5 H (1.3-7.7) k/uL Lymphocytes # 0.7 L (1.0-4.8) k/uL Carbon Dioxide 33 H (22-30) mmol/L BUN 55 H (7-17) mg/dL Glucose 122 H (74-99) mg/dL Assessment and Plan Assessment: 1 acute COPD exacerbation with secondary shortness of breath. The exact exacerbating factors is possibly exposure to chemicals at home/bleach/cleaning products. There are some atelectatic changes in the right midlung versus fluid in the fissure. No evidence of any pneumonia. The patient has not been vaccinated for COVID 19. 2 acute on chronic hypoxic respiratory failure currently on 4 L 0 2 by nasal cannula secondary to above 3 advanced COPD with an FEV1 of 27% of predicted at baseline 4 glucoma 5 chronic anxiety/depression Plan: The patient was seen and evaluated Echocardiogram and labs reviewed Titrate the FiO2 as tolerated Continue IV Solu-Medrol, bronchodilators and Mucinex Continue doxycycline Continue diuretics Xanax as needed for her anxiety Increase her activity as tolerated We'll continue to follow I have personally seen and examined the patient and reviewed the documentation. I performed a joint evaluation with the nurse practitioner in this evaluation was done more than 20 minutes. I fully agree with the documentation above and the plan of care.
[2021-12-12] MEDS: PRAVASTATIN SODIUM 20 MG TAB PO SCH (22:32)
[2021-12-12] MEDS: LATANOPROST 0.005% OPHTH DROPS 2.5 ML BTL BOTH EYES SCH (22:33)
[2021-12-13] MEDS: ZOLPIDEM 5 MG TAB PO PRN ×2 (00:37→23:19)
--- NOTE | 2021-12-13 01:55 | P.PN ---
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 Patient was initially requiring BiPAP and currently transitioned to nasal cannula oxygen. Chest x-ray showed there is some mild pleural reaction of fluid on the right side which is mostly new compared to old exam. No obvious heart failure. EKG showed sinus tachycardia. Laboratory data showed WBC 17.9 hemoglobin 14.1 platelets 313 Sodium 143 potassium 4.1 chloride 96 bicarb is 38 BUN 29 creatinine 1.31 and troponin x3 - proBNP 60. 12/10/2021 Patient is seen in follow up this morning and being closely monitored by pulmonary. Patient continues on 2-3 L of 02 via NC. Off bipap. Patient is extremely anxious on exam. Patient is tearful as well. WBC increased and patient on doxycycline. Patient is afebrile. Patient also continues on IV steroids and breathing inhalational treatments and will continue. Covid 19 ordered. 12/11/2021 Patient is seen in follow up this morning and is sitting up in the chair. Patient reports to better breathing if sitting up. Patient is maintained on 2.5 L via NC and also breathing inhalational treatments and IV steroids. Patient is reporting to having some lower extremity swelling. Will order 2d echo and IV lasix 40mg x1 for now. Labs within normal limits. WBC elevated most likely reactive and on high dose steroids. Patient denies chest pain or palpitations. Patient is afebrile. Patient tolerating diet with no nausea or vomiting noted. Encouraged increase activity as tolerated. 12/12/2021 Patient is seen and evaluated this morning and continues to have difficulty with dyspnea. Patient is anxious at times. Patient reports to having difficulty with feeling her heart rate is elevated when she gets into her coughing spells and will start low dose metoprolol. Recommend to continue with IV lasix as patient continues with lower extremity edema. Patient denies chest pain or palpitations. Patient is afebrile. Patient to continue with IV steroids, breathing inhalational treatments. Patient encouraged to increase activity as tolerated. Compression stockings ordered. Review of systems: Constitutional: reports of fatigue, no fever, or chills, reports anxiety Cardiovascular: No reports of chest pain or palpitations Respiratory: reports of shortness of breath and cough with phlegm on occasion GI: no reports of nausea, no reports of of vomiting, no reports of diarrhea : No reports of dysuria or retention Neurovascular: reports of generalized weakness and lower extremity swelling All medications have been reviewed Active Medications Albuterol Sulfate (Albuterol Nebulized 2.5 Mg/3 Ml) 5 mg INHALATION RT-QID [facility] Last Admin: 12/12/21 20:21 Dose: Not Given Documented by: Albuterol/Ipratropium (Ipratropium-Albuterol 3 Ml Neb) 3 ml INHALATION RT-Q4H PRN PRN Reason: Shortness Of Breath Or Wheezing Last Admin: 12/12/21 20:22 Dose: 3 ml Documented by: Alprazolam (Alprazolam 0.25 Mg Tab) 0.25 mg PO TID PRN PRN Reason: Anxiety Last Admin: 12/12/21 18:44 Dose: 0.25 mg Documented by: Budesonide/Formoterol Fumarate (Symbicort 80-4.5 Mcg Inhaler) 2 puff INHALATION RT-BID [facility] Last Admin: 12/12/21 20:21 Dose: 2 puff Documented by: Cholecalciferol (Cholecalciferol 25 Mcg (1000 Iu) Tablet) 25 mcg PO DAILY [facility] Last Admin: 12/12/21 11:16 Dose: 25 mcg Documented by: Doxycycline Monohydrate (Doxycycline 100 Mg Cap) 100 mg PO BID [facility]; Protocol Last Admin: 12/12/21 22:32 Dose: 100 mg Documented by: Furosemide (Furosemide 10 Mg/Ml 4 Ml Vial) 40 mg IV Q12HR [facility] Last Admin: 12/12/21 22:33 Dose: 40 mg Documented by: Guaifenesin/Dextromethorphan (Guaifenesin-Dm 600/30mg 1 Each Tab.Er.12h) 1 each PO Q12HR [facility] Last Admin: 12/12/21 22:32 Dose: 1 each Documented by: Heparin Sodium (Porcine) (Heparin Sodium,Porcine/Pf 5,000 Unit/0.5 Ml Syringe) 5,000 unit SQ Q8HR [facility] Last Admin: 12/12/21 22:33 Dose: 5,000 unit Documented by: Ipratropium [place] (Ipratropium 0.5 Mg/2.5 Ml Nebu) 0.5 mg INHALATION RT-QID [facility] Last Admin: 12/12/21 20:21 Dose: Not Given Documented by: Latanoprost (Latanoprost 0.005% Ophth Drops 2.5 Ml Btl) 1 drops [facility] Last Admin: 12/12/21 22:33 Dose: 1 drops Documented by: Losartan Potassium (Losartan 50 Mg Tab) 50 mg PO DAILY [facility] Last Admin: 12/12/21 11:16 Dose: 50 mg Documented by: Methylprednisolone Sodium Succinate (Methylprednisolone Sod Succi 125 Mg/2 Ml Vial) 60 mg IV Q6HR [facility] Last Admin: 12/12/21 22:32 Dose: 60 mg Documented by: Metoprolol Tartrate (Metoprolol Tartrate 12.5 Mg Tab) 12.5 mg PO BID [facility] Last Admin: 12/12/21 22:32 Dose: 12.5 mg Documented by: Morphine Sulfate (Morphine Sulfate 2 Mg/Ml Syringe) 2 mg IVP Q4HR PRN PRN Reason: Pain/Discomfort Morphine Sulfate (Morphine Sulfate 4 Mg/Ml Syringe) 4 mg IV Q4HR PRN PRN Reason: Severe Pain Multivitamins/Minerals (Vit A,C & I-Rpvida-Jykfjdfc 1 Each Tab) 1 each PO BID [facility] Last Admin: 12/12/21 22:32 Dose: 1 each Documented by: Naloxone HCl (Naloxone 0.4 Mg/Ml 1 Ml Vial) 0.2 mg IV Q2M PRN PRN Reason: Opioid Reversal Ondansetron HCl (Ondansetron 4 Mg/2 Ml Vial) 4 mg IVP Q8HR PRN PRN Reason: Nausea And Vomiting Pravastatin Sodium (Pravastatin Sodium 20 Mg Tab) 20 mg PO [facility] Last Admin: 12/12/21 22:32 Dose: 20 mg Documented by: Sodium Chloride (Sodium Chloride 0.65% Nasal [place] 44 Ml Btl) 2 spray NASAL QID PRN PRN Reason: Dry Nasal Passages Sodium Chloride (Sodium Chloride 0.9% Flush 10 Ml Syringe) 10 ml IV Q12HR [facility] Last Admin: 12/12/21 22:33 Dose: 10 ml Documented by: Sodium Chloride (Sodium Chloride 0.9% Flush 10 Ml Syringe) 10 ml IV DIRECTED PRN PRN Reason: FLUSH Zolpidem Tartrate (Zolpidem 5 Mg Tab) 5 mg PO HS PRN PRN Reason: Insomnia Last Admin: 12/13/21 00:37 Dose: 5 mg Documented by: PHYSICAL EXAMINATION: GENERAL: The patient is alert and oriented x4, Well developed, well nourished. asleep although easily arousable. HEENT: Pupils are round and equally reacting to light. EOMI. no scleral icterus. No conjunctival pallor. Normocephalic, atraumatic. No pharyngeal erythema. No thyromegaly. CARDIOVASCULAR: S1 and S2 muffled PULMONARY: diminished breath sounds bilaterally with wheezing and rhonchi noted. ABDOMEN: soft. Nontender on exam. non-distended, normoactive bowel sounds. No palpable organomegaly. MUSCULOSKELETAL: No joint swelling or deformity. EXTREMITIES: No cyanosis, clubbing, mild +1 pitting edema noted to bilateral lower extremities NEUROLOGICAL: Gross neurological examination did not reveal any focal deficits. diffusely weak SKIN: No rashes. Assessment: Acute on chronic hypoxic respiratory failure requiring BiPAP on admission Acute COPD exacerbation Chronic hypoxic respiratory failure oxygen at 3 to 4 L via nasal cannula Advanced COPD Anxiety Acute kidney injury with creatinine level 1.31 on admission Leukocytosis DVT prophylaxis with heparin subcu No code Plan: Patient will be continued on Solu-Medrol 60 mg every 6 hourly and duo nebs and Symbicort. Continue with oxygen supplementation. Continue oral doxycycline Wean FI02 as tolerated, currently at 2.5-3 L via NC Recommend IV lasix 40mg BID and will monitor vitals and labs closely. Compression stockings ordered and encouraged the patient to elevate lower extremities while at rest. Home medications resumed Pulmonary following 2d echo shows preserved LV function with EF of 50-55%. Prognosis is guarded The impression and plan of care has been dictated by Kirsten Byrd, nurse practitioner as directed. Dr. Juliane MD I have performed a history and examination and MDM of this patient, discussed t he same with the dictator, and agree with the dictator's assessment and plan as written ,documented as a scribe. Based on total visit time, I have performed more than 50% of the visit. Objective - Vital Signs Vital signs: Vital Signs Temp 98.0 F 12/12/21 08:00 Pulse 101 H 12/12/21 08:00 Resp 16 12/12/21 08:00 BP 143/73 12/12/21 08:00 Pulse Ox 90 L 12/12/21 08:00 Intake & Output 12/11/21 12/12/21 12/12/21 18:59 06:59 18:59 Weight 75.296 kg Other: Voiding Method Toilet # Voids 3 2 - Labs CBC & Chem 7: 12/12/21 06:37 12/12/21 06:37 Labs: Abnormal Lab Results - Last 24 Hours (Table) 12/12/21 12/12/21 Range/Units 06:37 06:37 WBC 14.9 H (3.8-10.6) k/uL Neutrophils # 13.5 H (1.3-7.7) k/uL Lymphocytes # 0.7 L (1.0-4.8) k/uL Carbon Dioxide 33 H (22-30) mmol/L BUN 55 H (7-17) mg/dL Glucose 122 H (74-99) mg/dL
[2021-12-13] MEDS: methylPREDNISolone SOD SUCCI 125 MG/2 ML VIAL IV SCH (05:09)
--- NOTE | 2021-12-13 07:16 | XR ---
EXAMINATION TYPE: XR chest 1V portable DATE OF EXAM: 12/13/2021 CLINICAL HISTORY: Difficulty breathing progress study. CHF and COPD. TECHNIQUE: Single AP portable upright view of the chest is obtained. COMPARISON: Chest x-ray from 3 days earlier FINDINGS: There is chronic parenchymal change and cardiomegaly redemonstrated. No new focal airspace opacity, pleural effusion, or pneumothorax seen bilaterally. Underlying scoliotic curvature currently . IMPRESSION: Chronic emphysematous change and cardiomegaly without acute pulmonary process currently.
[2021-12-13 07:53] LABS: African American GFR (CKD) 56 (>60 ml/min/1.73 sqM); Blood Urea Nitrogen 68 mg/dL (7-17); Calcium 8.8 mg/dL (8.4-10.2); Chloride 96 mmol/L (98-107); Glucose 103 mg/dL (74-99); Non-African American GFR(CKD) 49 (>60 ml/min/1.73 sqM); Potassium 4.3 mmol/L (3.5-5.1); Sodium 142 mmol/L (137-145)
[2021-12-13] MEDS: IPRATROPIUM-ALBUTEROL 3 ML NEB INHALATION PRN (07:55)
[2021-12-13] MEDS: IPRATROPIUM 0.5 MG/2.5 ML NEBU INHALATION SCH (07:57)
[2021-12-13] MEDS: ALBUTEROL NEBULIZED 2.5 MG/3 ML INHALATION SCH (07:57)
[2021-12-13] MEDS: SYMBICORT 80-4.5 MCG INHALER INHALATION SCH ×2 (07:57→21:09)
[2021-12-13 08:00] LABS: Anion Gap 10 mmol/L; Carbon Dioxide 36 mmol/L (22-30)
[2021-12-13] MEDS: HEPARIN SODIUM,PORCINE/PF 5,000 UNIT/0.5 ML SYRINGE SQ SCH ×3 (08:20→23:19)
[2021-12-13] MEDS: CHOLECALCIFEROL 25 MCG (1000 IU) TABLET PO SCH (08:20)
[2021-12-13] MEDS: METOPROLOL TARTRATE 12.5 MG TAB PO SCH ×2 (08:21→19:29)
[2021-12-13] MEDS: LOSARTAN 50 MG TAB PO SCH (08:21)
[2021-12-13] MEDS: DOXYCYCLINE 100 MG CAP PO SCH ×2 (08:21→19:30)
[2021-12-13] MEDS: FUROSEMIDE 10 MG/ML 4 ML VIAL IV SCH (08:21)
[2021-12-13] MEDS: VIT A,C & E-LUTEIN-MINERALS 1 EACH TAB PO SCH ×2 (08:21→19:30)
[2021-12-13] MEDS: guaiFENesin-DM 600/30MG 1 EACH TAB.ER.12H PO SCH ×2 (08:21→19:30)
[2021-12-13] MEDS: IPRATROPIUM-ALBUTEROL 3 ML NEB INHALATION SCH ×3 (11:40→21:10)
[2021-12-13] MEDS: predniSONE 20 MG TAB PO SCH (11:51)
[2021-12-13] MEDS: ALPRAZolam 0.25 MG TAB PO PRN ×2 (11:56→19:29)
--- NOTE | 2021-12-13 14:01 | P.PN ---
Subjective Progress Note Date: 12/13/21 This is a very pleasant 81-year-old female patient, who is known to have severe COPD. The patient sees me in the office regarding her COPD. Her last pulmonate function test showed an FEV1 of 27% at baseline, 33% post bronchodilation. Diffusion capacity is around 35%. She has home O2 at 2.5 L per minute nasal cannula. I have her on Trelegy Ellipta one inhalation a day and the patient is also on albuterol nebulized treatments around the clock. She is very anxious and she is on a combination of Lexapro 10 mg by mouth and Xanax on an as-needed basis. She has had previous influenza A pneumonia from which she has recovered. She has chronic anxiety/depression. She also has hypertension as another comorbid condition. The patient comes in yesterday through emergency department because of worsening shortness of breath. She was quite dyspneic and tachypneic and immediately she was placed on a BiPAP at a pressure of 12/6 cm of water with an FiO2 of 40%. Currently she is weaned down to 4 L of oxygen by nasal cannula. She has bronchospastic and wheezy. She was started on bronchodilators. She was started on IV Solu-Medrol 60 mg IV push every 6 hours. Chest x-ray shows hyperinflation. There is no evidence of any acute pneumonia at this consistent with COPD. Thickening of the fissure on the right, possibly some mild component of fluid within the fissure versus platelike atelectasis in the right lung. No signs of any CO2 narcosis. No angina. No swelling lower extremities. The p atient thinks that the exacerbating factor at this point is some cleaning products or was exposed at home. Refrigerator was moved by family members and underneath and refrigerator was being cleaned and the dust was being taken care of and following that, the patient became more short of breath. Today's evaluation, the patient is still struggling with her breathing and she has excessive cough and congestion that's been associated with along with her COPD exacerbation. She remains anxious. No chest pain. No CO2 narcosis. No altered mentation. She is taking her bronchodilators. His sleep was limited as the patient was anxious and she was still in the emergency department which was not the ideal place to take a sleep. Her creatinine today is at 1.4 with a mean of 33. Sodium is at 143. The patient's white cell count of 15.5 with a hemoglobin of 13.0. The patient remains on bronchodilators. The patient remains on IV fluids pH is taking normal saline at the rate of 75 mL an hour. The patient is seen today 12/11/2021 in follow-up on the regular medical floor. She is currently sitting up in a chair at the bedside. Awake and alert in no acute distress. Maintaining O2 saturations in the 90s on 2-1/2 L/m per nasal cannula. She's been afebrile. White count 18.1. Hemoglobin 11.9. Sodium 137. Potassium 4.8. Bicarb 34. BUN 44. Creatinine 0.82. Burkett virus by PCR not detected. She is continued on DuoNeb inhalations, Symbicort, IV Solu-Medrol and Mucinex. Antibiotics in the form of doxycycline. Heparin for DVT prophylaxis. Xanax as needed for her anxiety. The patient is seen today 12/12/2021 in follow-up on the regular medical floor. She is awake and alert in no acute distress. Currently sitting up in a chair at the bedside. She is currently maintaining O2 saturations in the low 90s on 3 L/m per nasal cannula. Echocardiogram revealed preserved left ventricular systolic function with ejection fraction 55-60%. White count 14.9. Hemoglobin 13.2. Sodium 141. Potassium 4.3. BUN of 55. Creatinine 0.98. Glucose 122. She is continued on Symbicort, DuoNeb inhalations, no Mucinex, IV Solu-Medrol. Heparin for DVT prophylaxis. Remains on IV diuretics. 12/13/2021 the patient is doing well. Shortness of breath is gradually improving. Less anxious. Lower extremity edema is also improving.. The patient has no specific complaints. The patient is on Lasix 40 mg IV every 12 hours and this will reduce to once a day. The patient will be also taken off the IV Solu-Medrol. Objective - Vital Signs Vital signs: Vital Signs Temp 98.4 F 12/13/21 07:14 Pulse 94 12/13/21 11:55 Resp 40 H 12/13/21 07:14 BP 151/92 12/13/21 07:14 Pulse Ox 92 L 12/13/21 07:58 Intake & Output 12/12/21 12/13/21 12/13/21 18:59 06:59 18:59 Intake Total 360 Balance 360 Intake: Oral 360 Other: Voiding Method Toilet # Voids 3 4 # Bowel Movements 0 - Exam Gen. appearance, Alert, oriented pleasant 81-year-old female patient. On 3 L nasal cannula. No signs of any CO2 narcosis. She is not using excessive muscle breathing. Head exam was generally normal. There was no scleral icterus or corneal arcus. Mucous membranes were moist. Neck was supple and without jugular venous distension, thyromegaly, or carotid bruits. Carotids were easily palpable bilaterally. There was no adenopathy. Lungs sounds are diminished and the patient has expiratory wheezes throughout the lung haile bilaterally and prolongation of the exhalation phase of breathing. Cardiac exam revealed the PMI to be normally situated and sized. The rhythm was regular and no extrasystoles were noted during several minutes of auscultation. The first and second heart sounds were normal and physiologic splitting of the second heart sound was noted. There were no murmurs, rubs, clicks, or gallops. Abdominal exam revealed normal bowel sounds. The abdomen was soft, non-tender, and without masses, organomegaly, or appreciable enlargement of the abdominal aorta. Examination of the extremities revealed easily palpable radial, femoral and pedal pulses. There was no cyanosis, clubbing or edema. Examination of the skin revealed no evidence of significant rashes, suspicious appearing nevi or other concerning lesions. Neurologically, the patient is awake and alert and the patient does not have any focal neurological deficit. Cranial nerves are essentially intact. - Labs CBC & Chem 7: 12/12/21 06:37 12/13/21 06:58 Labs: Abnormal Lab Results - Last 24 Hours (Table) 12/13/21 Range/Units 06:58 Chloride 96 L (98-107) mmol/L Carbon Dioxide 36 H (22-30) mmol/L BUN 68 H (7-17) mg/dL Creatinine 1.07 H (0.52-1.04) mg/dL Glucose 103 H (74-99) mg/dL Assessment and Plan Plan: 1 acute COPD exacerbation with secondary shortness of breath. The exact exacerbating factors is possibly exposure to chemicals at home/bleach/cleaning products. There are some atelectatic changes in the right midlung versus fluid in the fissure. No evidence of any pneumonia. The patient has not been v accinated for COVID 19. 2 acute on chronic hypoxic respiratory failure currently on 4 L 0 2 by nasal cannula secondary to above 3 advanced COPD with an FEV1 of 27% of predicted at baseline 4 glucoma 5 chronic anxiety/depression Plan Clinically improving We will supplement the patient with O2 at 2-4 L Continue DuoNeb nebulized treatment [id number] IV Solu-Medrol will be stopped and the patient will be started on a prednisone burst taper Xanax 0.5 mg every 6 hours on an as-needed basis Resumed Trelegy Ellipta from home Continue Doxycycline IV fluids to KVO Drop the Lasix to 40 mg IV every 24 hours Monitor creatinine, stable for now We'll continue to follow. May be ready for discharge by tomorrow
[2021-12-13] MEDS: PRAVASTATIN SODIUM 20 MG TAB PO SCH (19:29)
[2021-12-13] MEDS: LATANOPROST 0.005% OPHTH DROPS 2.5 ML BTL BOTH EYES SCH (19:31)
[2021-12-14] MEDS: ALPRAZolam 0.25 MG TAB PO PRN (07:29)
[2021-12-14] MEDS: SYMBICORT 80-4.5 MCG INHALER INHALATION SCH (07:52)
[2021-12-14] MEDS: IPRATROPIUM-ALBUTEROL 3 ML NEB INHALATION SCH ×2 (07:52→11:31)
[2021-12-14] MEDS: VIT A,C & E-LUTEIN-MINERALS 1 EACH TAB PO SCH (07:58)
[2021-12-14] MEDS: predniSONE 20 MG TAB PO SCH (07:58)
[2021-12-14] MEDS: HEPARIN SODIUM,PORCINE/PF 5,000 UNIT/0.5 ML SYRINGE SQ SCH (07:58)
[2021-12-14] MEDS: LOSARTAN 50 MG TAB PO SCH (07:59)
[2021-12-14] MEDS: CHOLECALCIFEROL 25 MCG (1000 IU) TABLET PO SCH (07:59)
[2021-12-14] MEDS: DOXYCYCLINE 100 MG CAP PO SCH (07:59)
[2021-12-14] MEDS: METOPROLOL TARTRATE 12.5 MG TAB PO SCH (07:59)
[2021-12-14] MEDS: guaiFENesin-DM 600/30MG 1 EACH TAB.ER.12H PO SCH (07:59)
[2021-12-14 08:35] VITALS: RESP 24
[2021-12-14] MEDS ORDERED: FUROSEMIDE 10 MG/ML 4 ML VIAL IV SCH (09:00)
[2021-12-14 11:26] LABS: Glucose,Whole Blood 101 mg/dL (75-99)
[2021-12-14 12:35] LABS: HGB 12.5 g/dL (12.0-15.0); MCH 27.8 pg (27.0-32.0); MCHC 29.8 g/dL (32.0-37.0); MCV 93.3 fL (80.0-97.0); Mean Platelet Volume 11.5 fL (9.5-12.2); NRBC Per 100 WBC 0 /100 WBCS (0.0-0.0); Platelet Count 296 X 10*3/uL (140-440); RDW 15.8 % (11.5-14.5); WBC 12.58 X 10*3/uL (4.50-10.00)
[2021-12-14 12:48] LABS: African American GFR (CKD) 63.7 (60.0-200.0); Anion Gap 13.5 mmol/L (10.00-18.00); BUN/Creat Ratio 61.75 Ratio (12.00-20.00); Blood Urea Nitrogen 59.4 mg/dL (9.0-27.0); Calcium 8.8 mg/dL (8.7-10.3); Carbon Dioxide 33.8 mmol/L (20.0-27.5); Non-African American GFR(CKD) 54.9 (60.0-200.0); Potassium 3.9 mmol/L (3.5-5.5)
[2021-12-14 13:51] LABS: Basophils # (A) 0.04 X 10*3/uL (0.00-0.10); Basophils % (A) 0.3 %; Eosinophils # (A) 0.21 X 10*3/uL (0.04-0.35); Eosinophils % (A) 1.7 %; Immature Grans, Automated 1.4 %; Lymphocytes # (A) 0.93 X 10*3/uL (0.90-5.00); Lymphocytes % (A) 7.4 %; Monocytes # (A) 1.73 X 10*3/uL (0.20-1.00); Monocytes % (A) 13.8 %; Neutrophils # (A) 9.49 X 10*3/uL (1.80-7.70); Neutrophils % (A) 75.4 %; RBC Morphology NORMAL
[2021-12-14 14:24] VITALS: BP 122/65; PULSE 81; TEMP 98.1
--- NOTE | 2021-12-14 16:16 | P.PN ---
Subjective Progress Note Date: 12/14/21 This is a very pleasant 81-year-old female patient, who is known to have severe COPD. The patient sees me in the office regarding her COPD. Her last pulmonate function test showed an FEV1 of 27% at baseline, 33% post bronchodilation. Diffusion capacity is around 35%. She has home O2 at 2.5 L per minute nasal cannula. I have her on Trelegy Ellipta one inhalation a day and the patient is also on albuterol nebulized treatments around the clock. She is very anxious and she is on a combination of Lexapro 10 mg by mouth and Xanax on an as-needed basis. She has had previous influenza A pneumonia from which she has recovered. She has chronic anxiety/depression. She also has hypertension as another comorbid condition. The patient comes in yesterday through emergency department because of worsening shortness of breath. She was quite dyspneic and tachypneic and immediately she was placed on a BiPAP at a pressure of 12/6 cm of water with an FiO2 of 40%. Currently she is weaned down to 4 L of oxygen by nasal cannula. She has bronchospastic and wheezy. She was started on bronchodilators. She was started on IV Solu-Medrol 60 mg IV push every 6 hours. Chest x-ray shows hyperinflation. There is no evidence of any acute pneumonia at this consistent with COPD. Thickening of the fissure on the right, possibly some mild component of fluid within the fissure versus platelike atelectasis in the right lung. No signs of any CO2 narcosis. No angina. No swelling lower extremities. The p atient thinks that the exacerbating factor at this point is some cleaning products or was exposed at home. Refrigerator was moved by family members and underneath and refrigerator was being cleaned and the dust was being taken care of and following that, the patient became more short of breath. Today's evaluation, the patient is still struggling with her breathing and she has excessive cough and congestion that's been associated with along with her COPD exacerbation. She remains anxious. No chest pain. No CO2 narcosis. No altered mentation. She is taking her bronchodilators. His sleep was limited as the patient was anxious and she was still in the emergency department which was not the ideal place to take a sleep. Her creatinine today is at 1.4 with a mean of 33. Sodium is at 143. The patient's white cell count of 15.5 with a hemoglobin of 13.0. The patient remains on bronchodilators. The patient remains on IV fluids pH is taking normal saline at the rate of 75 mL an hour. The patient is seen today 12/11/2021 in follow-up on the regular medical floor. She is currently sitting up in a chair at the bedside. Awake and alert in no acute distress. Maintaining O2 saturations in the 90s on 2-1/2 L/m per nasal cannula. She's been afebrile. White count 18.1. Hemoglobin 11.9. Sodium 137. Potassium 4.8. Bicarb 34. BUN 44. Creatinine 0.82. Burkett virus by PCR not detected. She is continued on DuoNeb inhalations, Symbicort, IV Solu-Medrol and Mucinex. Antibiotics in the form of doxycycline. Heparin for DVT prophylaxis. Xanax as needed for her anxiety. The patient is seen today 12/12/2021 in follow-up on the regular medical floor. She is awake and alert in no acute distress. Currently sitting up in a chair at the bedside. She is currently maintaining O2 saturations in the low 90s on 3 L/m per nasal cannula. Echocardiogram revealed preserved left ventricular systolic function with ejection fraction 55-60%. White count 14.9. Hemoglobin 13.2. Sodium 141. Potassium 4.3. BUN of 55. Creatinine 0.98. Glucose 122. She is continued on Symbicort, DuoNeb inhalations, no Mucinex, IV Solu-Medrol. Heparin for DVT prophylaxis. Remains on IV diuretics. 12/13/2021 the patient is doing well. Shortness of breath is gradually improving. Less anxious. Lower extremity edema is also improving.. The patient has no specific complaints. The patient is on Lasix 40 mg IV every 12 hours and this will reduce to once a day. The patient will be also taken off the IV Solu-Medrol. 12/14/2021, the patient is feeling better. She is less short of breath. Lower extremity edema is improved. Blood pressure under better control. The patient was started on a prednisone burst taper as of yesterday and the patient is currently on Lasix 40 mg by mouth on a daily basis. She is on Trelegy Ellipta on outpatient basis. No new complaints. Respiratory status and further the patient seems to be back to her baseline. Objective - Vital Signs Vital signs: Vital Signs Temp 98.1 F 12/14/21 13:32 Pulse 81 12/14/21 13:32 Resp 24 12/14/21 13:32 BP 122/65 12/14/21 13:32 Pulse Ox 91 L 12/14/21 13:32 Intake & Output 12/13/21 12/14/21 12/14/21 18:59 06:59 18:59 Other: Voiding Method Toilet Toilet # Voids 2 1 - Exam Gen. appearance, Alert, oriented pleasant 81-year-old female patient. On 3 L nasal cannula. No signs of any CO2 narcosis. She is not using excessive muscle breathing. Head exam was generally normal. There was no scleral icterus or corneal arcus. Mucous membranes were moist. Neck was supple and without jugular venous distension, thyromegaly, or carotid bruits. Carotids were easily palpable bilaterally. There was no adenopathy. Lungs sounds are diminished and the patient has expiratory wheezes throughout the lung haile bilaterally and prolongation of the exhalation phase of breathing. Cardiac exam revealed the PMI to be normally situated and sized. The rhythm was regular and no extrasystoles were noted during several minutes of auscultation. The first and second heart sounds were normal and physiologic splitting of the second heart sound was noted. There were no murmurs, rubs, clicks, or gallops. Abdominal exam revealed normal bowel sounds. The abdomen was soft, non-tender, and without masses, organomegaly, or appreciable enlargement of the abdominal aorta. Examination of the extremities revealed easily palpable radial, femoral and pedal pulses. There was no cyanosis, clubbing or edema. Examination of the skin revealed no evidence of significant rashes, suspicious appearing nevi or other concerning lesions. Neurologically, the patient is awake and alert and the patient does not have any focal neurological deficit. Cranial nerves are essentially intact. - Labs CBC & Chem 7: 12/14/21 04:11 12/14/21 04:11 Labs: Abnormal Lab Results - Last 24 Hours (Table) 12/14/21 12/14/21 12/14/21 Range/Units 04:11 04:11 11:25 WBC 12.58 H (4.50-10.00) X 10*3/uL MCHC 29.8 L (32.0-37.0) g/dL RDW 15.8 H (11.5-14.5) % Immature Gran # 0.18 H (0.00-0.04) X 10*3/uL Neutrophils # 9.49 H (1.80-7.70) X 10*3/uL Monocytes # 1.73 H (0.20-1.00) X 10*3/uL Carbon Dioxide 33.8 H (20.0-27.5) mmol/L BUN 59.4 H (9.0-27.0) mg/dL Est GFR (CKD-EPI)NonAf 54.9 L (60.0-200.0) BUN/Creatinine Ratio 61.75 H (12.00-20.00) Ratio POC Glucose (mg/dL) 101 H (75-99) mg/dL Assessment and Plan Plan: 1 acute COPD exacerbation with secondary shortness of breath. The exact exacerbating factors is possibly exposure to chemicals at home/bleach/cleaning products. There are some atelectatic changes in the right midlung versus fluid in the fissure. No evidence of any pneumonia. The patient has not been vaccinated for COVID 19. Clinically improved and the patient is back to baseline 2 acute on chronic hypoxic respiratory failure currently on 4 L 0 2 by nasal cannula secondary to above 3 advanced COPD with an FEV1 of 27% of predicted at baseline 4 glucoma 5 chronic anxiety/depression Plan Clinically improved and the patient seems to be close to baseline We will supplement the patient with O2 at 2-4 L Continue DuoNeb nebulized treatment [id number] Prednisone burst taper Use Trelegy Ellipta at home along with albuterol nebulized she was up to 3-4 times a day [id number] as needed Xanax 0.5 mg every 6 hours on an as-needed basis Resumed Trelegy Ellipta from home Oral Lasix Losartan for blood pressure control Metoprolol 12.5 mg twice a day May discharge home to be followed up with me on outpatient basis
--- NOTE | 2021-12-19 07:12 | CDI ---
Documentation Clarification Form Date: 12/19/21 From: Janet Hunter Admit Date: 12/08/2021 11:13:00 PM Patient Name: Brittany Rodriguez Visit Number: [id number] Discharge Date: 12/14/2021 03:37:00 PM ATTENTION: The Clinical Documentation Specialists (CDI) and [facility] Coding Staff appreciate your assistance in clarifying documentation. Please respond to the clarification below the line at the bottom and electronically sign. The CDI & [facility] Coding staff will review the response and follow-up if needed. Please note: Queries are made part of the Legal Health Record. If you have any questions, please contact the author of this message via ITS. Dr. Javier Cardozo, There is documentation of "On arrival to ER patient is on BiPAP continued on BiPAP secondary severe distress work of breathing tachycardic tripod and severe shortness of breath. Patient believes she had some sort of exposure that causes respiratory distress syndrome tonight." per ED Note. "Acute COPD exacerbation with secondary shortness of breath. The exact exacerbating factors is possibly exposure to chemicals at home/bleach/cleaning products." per Dr. Almonte consult Additional clarification is requested. History/Risk Factors: Chronic hypoxic respiratory failure on oxygen, MS, COPD, smoker, HTN, HLD Clinical Indicators: Severe respiratory distress, tachycardic, tripod. P 137, R 30, BP 121/68 Treatment: BIPAP, nebulizer, IV Solumedrol Can you please clarify if the AECOPD is due to the accidental inhalation of bleach fumes? [ ] Inhalation of bleach causing AECOPD [ ] Acute exacerbation of COPD [ ] Other, please specify [ ] Unable to determine Inhalation of bleach causing AECOPD MTDD
== END 2021-12-14 15:37 | disposition home health service (06) | DRG 917 ==
LOC: EC 22:09 → 3SCARD 23:13 → 5NMEDONC 12-09 16:14 → 4SSUR 12-10 16:30
PROVIDERS: ADMIT Hospitalist; ATTEND Hospitalist
PROC: 5A09357 Assistance with Respiratory Ventilation, Less than 24 Consecutive Hours, Continuous Positive Airway Pressure (ICD-10-PCS; principal; 2021-12-08)
DX: T54.91XA Toxic effect of unspecified corrosive substance, accidental (unintentional), initial encounter (principal); J96.21 Acute and chronic respiratory failure with hypoxia; J44.1 Chronic obstructive pulmonary disease with (acute) exacerbation; N17.9 Acute kidney failure, unspecified; H46.9 Unspecified optic neuritis; J45.901 Unspecified asthma with (acute) exacerbation; G35 Multiple sclerosis; Z66 Do not resuscitate; Z20.822 Contact with and (suspected) exposure to COVID-19; I10 Essential (primary) hypertension; E78.5 Hyperlipidemia, unspecified; F32.A Depression, unspecified; F41.9 Anxiety disorder, unspecified; D72.829 Elevated white blood cell count, unspecified; H40.9 Unspecified glaucoma; F17.210 Nicotine dependence, cigarettes, uncomplicated; Z71.6 Tobacco abuse counseling; Z99.81 Dependence on supplemental oxygen; Z79.51 Long term (current) use of inhaled steroids; Z79.899 Other long term (current) drug therapy; Z88.0 Allergy status to penicillin; Z90.49 Acquired absence of other specified parts of digestive tract; Z87.19 Personal history of other diseases of the digestive system; Z96.652 Presence of left artificial knee joint; Z87.39 Personal history of other diseases of the musculoskeletal system and connective tissue; Z87.01 Personal history of pneumonia (recurrent); Z98.890 Other specified postprocedural states; Z82.49 Family history of ischemic heart disease and other diseases of the circulatory system; Z80.1 Family history of malignant neoplasm of trachea, bronchus and lung; Z83.3 Family history of diabetes mellitus; Y92.000 Kitchen of unspecified non-institutional (private) residence as the place of occurrence of the external cause
CPT/HCPCS: 36415; 71045; 80048; 80053; 83735; 83880; 84100; 84484; 85025; 85610; 85730; 87635; 93005; 93306; 94640; 94660; 94760; 96374; 96375; 99291

== ENCOUNTER 2022-07-04 12:11 | Emergency (ER) | payer MEDICARE ==
--- NOTE | 2022-07-04 12:42 | ED ---
SOB HPI - General Chief Complaint: Shortness of Breath Stated Complaint: MOE Time Seen by Provider: 07/04/22 12:12 Source: EMS Mode of arrival: EMS Limitations: no limitations - History of Present Illness Initial Comments: Patient is an 82-year-old female presents to the emergency room via EMS. She reports that she was advised by her hospice nurse to go to the hospital for a morphine drip infusion for pain in which she reports she has when she moves around and ambulates. EMS noted hypoxia when they arrived she was on her baseline of 3 L; they placed her on a nonrebreather with quick increase in oxygen saturations. Since arriving to the emergency room she was transitioned to 4 L nasal cannula and is tolerating it well with O2 sat of 98%. She reports that her oxygen levels are good while she is at rest but has difficulty ambulating which is not new for her. She does continue to smoke regularly. In addition to her COPD history with home oxygen she has a past medical history of asthma, diverticulosis, glaucoma, hypertension and hyperlipidemia. - Related Data Home Medications Medication Instructions Recorded Confirmed ALPRAZolam [Xanax] 0.25 mg PO TID PRN 10/09/19 12/08/21 Ipratropium-Albuterol Nebulize 3 ml INHALATION RT-QID PRN 10/09/19 12/08/21 [Duoneb 0.5 mg-3 mg/3 ml Soln] Albuterol Sulfate [Albuterol 2 puff INHALATION RT-Q4H PRN 12/08/21 12/08/21 Sulfate Hfa] Allergies Allergy/AdvReac Type Severity Reaction Status Date / Time Penicillins Allergy Unknown Verified 12/08/21 22:30 Review of Systems ROS Statement: Those systems with pertinent positive or pertinent negative responses have been documented in the HPI. ROS Other: All systems not noted in ROS Statement are negative. Past Medical History Past Medical History: Asthma, COPD, Hyperlipidemia, Hypertension Additional Past Medical History / Comment(s): Home oxygen 2-3L/NC, Glaucoma, optic neuritis, diverticulosis History of Any Multi-Drug Resistant Organisms: None Reported Past Surgical History: Orthopedic Surgery Additional Past Surgical History / Comment(s): bilateral knee ,abcess in colon Past Anesthesia/Blood Transfusion Reactions: No Reported Reaction Past Psychological History: No Psychological Hx Reported Smoking Status: Current some day smoker Past Alcohol Use History: None Reported Past Drug Use History: None Reported - Past Family History Father Family Medical History: Cancer, Hypertension Additional Family Medical History / Comment(s): Father had lung cancer with lobectomy. She was a smoker Mother Family Medical History: Diabetes Mellitus, Hypertension General Exam Limitations: no limitations General appearance: alert, in no apparent distress Head exam: Present: atraumatic, normocephalic, normal inspection Eye exam: Present: normal appearance, PERRL. Absent: scleral icterus, conjunctival injection ENT exam: Present: normal exam Neck exam: Present: normal inspection, full ROM Respiratory exam: Present: decreased breath sounds, other (Occasional pursed lip breathing). Absent: respiratory distress, wheezes, rales, rhonchi, stridor Cardiovascular Exam: Present: regular rate, normal rhythm, normal heart sounds. Absent: systolic murmur, diastolic murmur, rubs, gallop, clicks GI/Abdominal exam: Present: soft, normal bowel sounds. Absent: distended, tenderness, guarding, rebound, rigid Rectal exam: Present: deferred Extremities exam: Present: normal inspection. Absent: pedal edema, joint swelling Back exam: Present: normal inspection Neurological exam: Present: alert, oriented X3, CN II-XII intact Psychiatric exam: Present: normal affect, normal mood Skin exam: Present: warm, dry, intact, normal color. Absent: rash Course Vital Signs 07/04/22 07/04/22 07/04/22 12:14 12:22 13:30 Temperature 98.8 F Pulse Rate 105 H 100 Respiratory 20 20 18 Rate Blood Pressure 106/66 106/66 O2 Sat by Pulse 98 98 98 Oximetry 07/04/22 07/04/22 07/04/22 13:46 21:31 21:44 Temperature 98.3 F Pulse Rate 95 92 Respiratory 22 28 H Rate Blood Pressure 122/74 O2 Sat by Pulse 98 Oximetry 07/04/22 07/05/22 07/05/22 21:52 07:34 07:44 Temperature Pulse Rate 94 92 90 Respiratory 18 18 Rate Blood Pressure O2 Sat by Pulse Oximetry 07/05/22 08:55 Temperature Pulse Rate Respiratory Rate Blood Pressure O2 Sat by Pulse 97 Oximetry - Reevaluation(s) Reevaluation #1: Hospice nurse attempting to arrange respite care for patient however has housekeeping/laundry supervisor denied admission to to pad status of the hospital and patient is to be discharged back home to resume home hospice. Message left with [facility] home care and hospice to relay information regarding denied admission. Time: 15:31 Reevaluation #2: Hospice housekeeping/laundry supervisor arranged respite admission at [facility]. Accepting physician Dr. Kentrell Vaughan. Patient to be be transfered to [facility] via EMS once bed available after 1900. Time: 16:39 Reevaluation #3: Patient requesting to go home. She reports that she has her oxygen set up at home along with her medications. She has the ability to ambulate in her home with oxygen and her current pain medication regimen. She states that she has food deliveries arranged and is able to prepare these food deliveries for herself to eat. She is maintaining oxygen level of 97% on her baseline home O2 of 3 L nasal cannula without any evidence of hypoxia. Will arrange discharge home with continued [facility] hospice. No evidence of unsafe for discharge home. Case discussed with Dr. Rico this morning. Time: 09:00 Medical Decision Making - Medical Decision Making 82-year-old female presenting to the emergency room with complaints of worsening shortness of breath however she is satting well on 4 L nasal cannula. She typically will utilizes 2-3 L nasal cannula at home for her COPD and does continue to smoke. She is currently admitted in hospice. She complains of difficulty breathing with ambulation which is not new for her. She continues to decline any diagnostic imaging or laboratory studies. She denies pain at this time and declines any analgesics. No indication for GIP admission for hospice. No evidence of actively dying or significantly change in baseline status. [facility] hospice team notified of patient's presence in the emergency room in attempting to coordinate care for home. Notified availability here at [facility] however respite admission arranged by hospice at [facility]. Excepting physician Dr. Miky Gallardo patient to be transferred via EMS on oxygen once bed available. Case discussed with and transferred over to Dr. Weiner for continued observation until patient leaves the emergency room. Disposition Clinical Impression: COPD (chronic obstructive pulmonary disease) Disposition: HOME SELF-CARE Condition: Stable Instructions (If sedation given, give patient instructions): COPD (Chronic Obstructive Pulmonary Disease) (ED) Additional Instructions: Please contact [facility] hospice with any concerns that you may have. Continue your medications as prescribed by the hospice team. Continue to utilize your oxygen /. Is patient prescribed a controlled substance at d/c from ED?: No Referrals: Femi Lozano DO [Primary Care Provider] - 1-2 days Time of Disposition: 09:01
[2022-07-04] MEDS ORDERED: ALPRAZolam 0.25 MG TAB PO PRN (21:30)
[2022-07-04 21:35] VITALS: BP 122/74; TEMP 98.3
[2022-07-04] MEDS: IPRATROPIUM-ALBUTEROL 3 ML NEB INHALATION PRN (21:43)
[2022-07-05] MEDS ORDERED: SYMBICORT 160-4.5 MCG INHALER INHALATION STA (07:23)
[2022-07-05] MEDS: IPRATROPIUM-ALBUTEROL 3 ML NEB INHALATION PRN (07:33)
[2022-07-05 07:37] VITALS: RESP 18
[2022-07-05 07:45] VITALS: PULSE 90
== END 2022-07-05 11:07 | disposition home or self-care (01) ==
LOC: EC 12:11
DX: J44.1 Chronic obstructive pulmonary disease with (acute) exacerbation (principal); R06.02 Shortness of breath; Z88.0 Allergy status to penicillin; E78.5 Hyperlipidemia, unspecified; I10 Essential (primary) hypertension
CPT/HCPCS: 94640; 99284

== ENCOUNTER 2022-07-06 13:21 | Emergency (ER) | payer MEDICARE ==
[2022-07-06 13:47] LABS: Glucose,Whole Blood 98 mg/dL (70-110)
[2022-07-06 14:09] LABS: Basophils % (A) 0 %; Eosinophils # (A) 0.3 k/uL (0-0.7); Eosinophils % (A) 3 %; HCT 39.2 % (34.0-46.0); HGB 11.8 gm/dL (11.4-16.0); Hypochromasia Marked; Lymphocytes # (A) 1.5 k/uL (1.0-4.8); Lymphocytes % (A) 14 %; MCH 26.8 pg (25.0-35.0); MCHC 30.2 g/dL (31.0-37.0); MCV 88.7 fL (80.0-100.0); Mean Platelet Volume 7.6; Monocytes # (A) 0.6 k/uL (0-1.0); Monocytes % (A) 6 %; Neutrophils # (A) 7.9 k/uL (1.3-7.7); Neutrophils % (A) 75 %; Platelet Count 358 k/uL (150-450); RBC 4.42 m/uL (3.80-5.40); RDW 15.1 % (11.5-15.5); WBC 10.5 k/uL (3.8-10.6)
[2022-07-06 14:26] LABS: Albumin 3.6 g/dL (3.5-5.0); Calcium 9.1 mg/dL (8.4-10.2); Potassium 3.6 mmol/L (3.5-5.1); Total Bilirubin 0.5 mg/dL (0.2-1.3); Total Protein 6.7 g/dL (6.3-8.2)
--- NOTE | 2022-07-06 14:32 | ED ---
General Adult HPI - General Stated complaint: unresponsive Time Seen by Provider: 07/06/22 13:29 Source: EMS, RN notes reviewed, old records reviewed Mode of arrival: EMS Limitations: altered mental status - History of Present Illness Initial comments: This is an 82-year-old female who was brought in by EMS for altered mental status. The patient reportedly was recently discharged to hospice however reportedly was discharged from hospice yesterday however this was not confirmed. The patient on arrival was maintaining her airway and was not in respiratory distress however was 18 oh 0, not responding to any questions. No further history could be obtained by the patient as she was altered and no further history was obtained by EMS as there were no people at the home when they arrived. - Related Data Home Medications Medication Instructions Recorded Confirmed Ipratropium-Albuterol Nebulize 3 ml INHALATION RT-QID PRN 10/09/19 12/08/21 [Duoneb 0.5 mg-3 mg/3 ml Soln] ALPRAZolam [Xanax] 0.5 mg PO TID 07/06/22 07/06/22 Acetaminophen Tab [Tylenol] 650 mg PO DAILY 07/06/22 07/06/22 Furosemide [Lasix] 40 mg PO DAILY 07/06/22 07/06/22 Haloperidol Oral Soln [Haldol Oral 2 mg PO Q6H PRN 07/06/22 07/06/22 Soln] Hyoscyamine Sulfate [Hyoscyamine 0.125 mg SL Q4H PRN 07/06/22 07/06/22 Sulfate SL] LORazepam [Ativan] 0.5 mg PO Q4H PRN 07/06/22 07/06/22 Latanoprost [Latanoprost 0.005%] 1 drop BOTH EYES HS 07/06/22 07/06/22 MORPHINE ORAL TIMOTHY CONC 20mg/mL 10 mg PO Q4H PRN 07/06/22 07/06/22 [Roxanol Oral Soln Conc 20MG/ML] Metoprolol Tartrate [Lopressor] 12.5 mg PO BID 07/06/22 07/06/22 Ondansetron Odt [Zofran Odt] 4 mg PO Q6HR PRN 07/06/22 07/06/22 Sennosides [Senokot] 8.6 mg PO BID PRN 07/06/22 07/06/22 bisacodyL [Dulcolax] 10 mg RECTAL Q3D PRN 07/06/22 07/06/22 busPIRone HCl [Buspar] 10 mg PO BID 07/06/22 07/06/22 predniSONE 10 mg PO DAILY 07/06/22 07/06/22 Allergies Allergy/AdvReac Type Severity Reaction Status Date / Time Penicillins Allergy Unknown Verified 07/06/22 14:25 Review of Systems ROS Statement: Those systems with pertinent positive or pertinent negative responses have been documented in the HPI. ROS Other: All systems not noted in ROS Statement are negative. Limitations: ROS unobtainable due to patients medical condition Past Medical History Past Medical History: Asthma, COPD, Hyperlipidemia, Hypertension Additional Past Medical History / Comment(s): Home oxygen 2-3L/NC, Glaucoma, optic neuritis, diverticulosis History of Any Multi-Drug Resistant Organisms: None Reported Past Surgical History: Orthopedic Surgery Additional Past Surgical History / Comment(s): bilateral knee ,abcess in colon Past Anesthesia/Blood Transfusion Reactions: No Reported Reaction Past Psychological History: No Psychological Hx Reported Smoking Status: Current some day smoker Past Alcohol Use History: None Reported Past Drug Use History: None Reported - Past Family History Father Family Medical History: Cancer, Hypertension Additional Family Medical History / Comment(s): Father had lung cancer with lobe ctomy. She was a smoker Mother Family Medical History: Diabetes Mellitus, Hypertension General Exam Limitations: altered mental status General appearance: in no apparent distress, lethargic Head exam: Present: atraumatic, normocephalic Eye exam: Present: normal appearance, PERRL Pupils: Present: normal accommodation ENT exam: Present: normal exam Neck exam: Present: normal inspection Respiratory exam: Present: normal lung sounds bilaterally Cardiovascular Exam: Present: regular rate, normal rhythm GI/Abdominal exam: Present: soft, normal bowel sounds Extremities exam: Present: normal inspection, full ROM Back exam: Present: normal inspection, full ROM Neurological exam: Present: altered Psychiatric exam: Present: other (ANOx4, not responding to commands) Skin exam: Present: warm, dry Course Vital Signs 07/06/22 13:21 Temperature 97.2 F L Pulse Rate 110 H Respiratory 18 Rate Blood Pressure 139/75 O2 Sat by Pulse 97 Oximetry EKG Findings - EKG Comments: EKG Findings:: EKG was obtained that showed a rate of 110, NV interval of 184, QRS duration of 91 and QTC of 388. This EKG showed sinus tachycardia without any ST segment elevations or depressions noted. There was no old EKGs for comparison at this time. Medical Decision Making - Medical Decision Making The patient was seen and evaluated numerous. Initial arrival, the patient was able 0, not responding to commands. The patient was given 0.4 mg of Narcan IV without any change. There are information was obtained from the chart and the patient was confirmed to be under the care of [facility]. The patient was sent in to be admitted to the hospitalist team as it was no healthcare or caregivers at home for the patient. The patient remained stable in laboratory workup was obtained however the patient was a DO NOT RESUSCITATE and DO NOT INTUBATE so the patient was maintained on nasal cannula oxygen and continued to be maintained under hospice care. The patient was admitted to Dr. Cardozo for the continuation of her hospice care. The patient was admitted in stable condition. - Lab Data Result diagrams: 07/06/22 13:45 07/06/22 13:45 Lab Results 07/06/22 07/06/22 07/06/22 Range/Units 13:45 13:45 13:45 WBC 10.5 (3.8-10.6) k/uL RBC 4.42 (3.80-5.40) m/uL Hgb 11.8 (11.4-16.0) gm/dL Hct 39.2 (34.0-46.0) % MCV 88.7 (80.0-100.0) fL MCH 26.8 (25.0-35.0) pg MCHC 30.2 L (31.0-37.0) g/dL RDW 15.1 (11.5-15.5) % Plt Count 358 (150-450) k/uL MPV 7.6 Neutrophils % 75 % Lymphocytes % 14 % Monocytes % 6 % Eosinophils % 3 % Basophils % 0 % Neutrophils # 7.9 H (1.3-7.7) k/uL Lymphocytes # 1.5 (1.0-4.8) k/uL Monocytes # 0.6 (0-1.0) k/uL Eosinophils # 0.3 (0-0.7) k/uL Basophils # 0.0 (0-0.2) k/uL Hypochromasia Marked PT 11.0 (9.0-12.0) sec INR 1.0 (<1.2) APTT 26.0 (22.0-30.0) sec Sodium 141 (137-145) mmol/L Potassium 3.6 (3.5-5.1) mmol/L Chloride 90 L (98-107) mmol/L Carbon Dioxide 42 H* (22-30) mmol/L Anion Gap 9 mmol/L BUN 22 H (7-17) mg/dL Creatinine 1.04 (0.52-1.04) mg/dL Est GFR (CKD-EPI)AfAm 58 (>60 ml/min/1.73 sqM) Est GFR (CKD-EPI)NonAf 50 (>60 ml/min/1.73 sqM) Glucose 95 (74-99) mg/dL POC Glucose (mg/dL) (70-110) mg/dL POC Glu [employer] Sales Representative ID Calcium 9.1 (8.4-10.2) mg/dL Total Bilirubin 0.5 (0.2-1.3) mg/dL AST 42 H (14-36) U/L ALT 19 (4-34) U/L Alkaline Phosphatase 103 (38-126) U/L Ammonia (<30) umol/L Troponin I (0.000-0.034) ng/mL Total Protein 6.7 (6.3-8.2) g/dL Albumin 3.6 (3.5-5.0) g/dL 07/06/22 07/06/22 07/06/22 Range/Units 13:45 13:45 13:46 WBC (3.8-10.6) k/uL RBC (3.80-5.40) m/uL Hgb (11.4-16.0) gm/dL Hct (34.0-46.0) % MCV (80.0-100.0) fL MCH (25.0-35.0) pg MCHC (31.0-37.0) g/dL RDW (11.5-15.5) % Plt Count (150-450) k/uL MPV Neutrophils % % Lymphocytes % % Monocytes % % Eosinophils % % Basophils % % Neutrophils # (1.3-7.7) k/uL Lymphocytes # (1.0-4.8) k/uL Monocytes # (0-1.0) k/uL Eosinophils # (0-0.7) k/uL Basophils # (0-0.2) k/uL Hypochromasia PT (9.0-12.0) sec INR (<1.2) APTT (22.0-30.0) sec Sodium (137-145) mmol/L Potassium (3.5-5.1) mmol/L Chloride (98-107) mmol/L Carbon Dioxide (22-30) mmol/L Anion Gap mmol/L BUN (7-17) mg/dL Creatinine (0.52-1.04) mg/dL Est GFR (CKD-EPI)AfAm (>60 ml/min/1.73 sqM) Est GFR (CKD-EPI)NonAf (>60 ml/min/1.73 sqM) Glucose (74-99) mg/dL POC Glucose (mg/dL) 98 (70-110) mg/dL POC Glu [employer] Furn[employer] Sales Representative ID Bill Henry Calcium (8.4-10.2) mg/dL Total Bilirubin (0.2-1.3) mg/dL AST (14-36) U/L ALT (4-34) U/L Alkaline Phosphatase (38-126) U/L Ammonia 13 (<30) umol/L Troponin I <0.012 (0.000-0.034) ng/mL Total Protein (6.3-8.2) g/dL Albumin (3.5-5.0) g/dL Critical Care Time Critical Care Time: Yes Total Critical Care Time: 41 Disposition Clinical Impression: Hospice care Disposition: ADMITTED IP TO THIS HOSP Condition: Stable Referrals: Femi Lozano DO [Primary Care Provider] - 1-2 days Time of Disposition: 14:30
--- NOTE | 2022-07-06 14:39 | XR ---
EXAMINATION TYPE: XR chest 2V DATE OF EXAM: 07/06/2022 2:24 PM COMPARISON: Chest radiographs from 12/13/2021. TECHNIQUE: XR chest 2V Frontal and lateral views of the chest. CLINICAL INDICATION:Female, 82 years old with history of altered mental status; FINDINGS: Lungs/Pleura: There is no evidence of pleural effusion, focal consolidation, or pneumothorax. Bibasi lar subsegmental atelectasis. Chronic parenchymal change. Coarsened interstitium. Underlying COPD loly pected. Heart/mediastinum: Heart is multiple prominent stable. Prominent right hilum redemonstrated. Atheros clerotic calcifications are seen in the aorta. Musculoskeletal: No acute osseous pathology. IMPRESSION: 1. COPD suspected with chronic interstitial lung disease or pneumonitis. 2. Prominent right hilum redemonstrated and could be related to prominent pulmonary artery versus ad enopathy. This can be further evaluated with CT chest.
[2022-07-06 14:46] VITALS: BP 139/75; PULSE 110; RESP 18; TEMP 97.2
[2022-07-06 15:06] LABS: VBG PH 7.41 (7.31-7.41)
[2022-07-06 15:49] LABS: Appearance,Urine Cloudy (Clear); Bacteria,Urine Rare /hpf; Bilirubin,Urine Negative (Negative); Blood,Urine Negative (Negative); Color,Urine Yellow; Glucose,Urine (UA) Negative (Negative); Hyaline Casts,Urine 1 /lpf (0-2); Ketones,Urine Trace (Negative); Leukocyte Esterase,Urine Negative (Negative); Mucus,Urine Occasional /hpf; Nitrite,Urine Negative (Negative); PH, Urine 5.5 (5.0-8.0); Protein,Urine 1+ (Negative); Specific Gravity,Urine 1.019 (1.001-1.035); Urobilinogen,Urine <2.0 mg/dL (<2.0)
[2022-07-06 15:54] LABS: Amphetamine Screen,Urine Not Detected (NotDetected); Barbiturate Screen,Urine Not Detected (NotDetected); Benzodiazepines Screen,Urine Detected (NotDetected); Cocaine Screen,Urine Not Detected (NotDetected); Methadone Screen, Urine Not Detected (NotDetected); Opiate Screen,Urine Detected (NotDetected); Oxycodone Screen, Urine Not Detected (NotDetected); Phencyclidine Screen,Urine Not Detected (NotDetected); Tricyclic Antidepressant,Urine Not Detected (NotDetected); Urn Cannabinoid Scrn Not Detected (NotDetected)
--- NOTE | 2022-07-06 22:05 | P.HPIM ---
History of Present Illness H&P Date: 07/06/22 Chief Complaint: Unresponsive Patient is a 82-year-old female with a known history of end-stage COPD currently on oxygen at 3 L via nasal cannula, was at hospice care facility and was recently discharged home, hypertension, hyperlipidemia, currently some day smoker was brought to the hospital as she found unresponsive at home. Found to have morphine pill bottle by her side by EMS. Was given a dose of Narcan. On arrival patient was on 4 L oxygen via nasal cannula. Not in any respiratory distress. Able to open her eyes but could not provide any history. Hospice care service was consulted patient is being transferred to hospice care. Laboratory data showed WBC 10.4 hemoglobin 11.8 and platelets 358 Sodium 141 potassium 3.6 chloride 90 bicarb is 42 BUN 22 and creatinine 1.04 Urinalysis is negative for infection UDS is positive for opiates and benzodiazepines. Review of Systems Complete review of systems could not be obtained from the patient. Past Medical History Past Medical History: Asthma, COPD, Hyperlipidemia, Hypertension Additional Past Medical History / Comment(s): Home oxygen 2-3L/NC, Glaucoma, optic neuritis, diverticulosis History of Any Multi-Drug Resistant Organisms: None Reported Past Surgical History: Orthopedic Surgery Additional Past Surgical History / Comment(s): bilateral knee ,abcess in colon Past Anesthesia/Blood Transfusion Reactions: No Reported Reaction Past Psychological History: No Psychological Hx Reported Smoking Status: Current some day smoker Past Alcohol Use History: None Reported Past Drug Use History: None Reported - Past Family History Father Family Medical History: Cancer, Hypertension Additional Family Medical History / Comment(s): Father had lung cancer with lobectomy. She was a smoker Mother Family Medical History: Diabetes Mellitus, Hypertension Medications and Allergies Home Medications Medication Instructions Recorded Confirmed Type Ipratropium-Albuterol Nebulize 3 ml INHALATION RT-QID PRN 10/09/19 07/06/22 History [Duoneb 0.5 mg-3 mg/3 ml Soln] ALPRAZolam [Xanax] 0.5 mg PO TID 07/06/22 07/06/22 History Acetaminophen Tab [Tylenol] 650 mg PO DAILY 07/06/22 07/06/22 History Furosemide [Lasix] 40 mg PO DAILY 07/06/22 07/06/22 History Haloperidol Oral Soln [Haldol Oral 2 mg PO Q6H PRN 07/06/22 07/06/22 History Soln] Hyoscyamine Sulfate [Hyoscyamine 0.125 mg SL Q4H PRN 07/06/22 07/06/22 History Sulfate SL] LORazepam [Ativan] 0.5 mg PO Q4H PRN 07/06/22 07/06/22 History Latanoprost [Latanoprost 0.005%] 1 drop BOTH EYES HS 07/06/22 07/06/22 History MORPHINE ORAL TIMOTHY CONC 20mg/mL 10 mg PO Q4H PRN 07/06/22 07/06/22 History [Roxanol Oral Soln Conc 20MG/ML] Metoprolol Tartrate [Lopressor] 12.5 mg PO BID 07/06/22 07/06/22 History Ondansetron Odt [Zofran Odt] 4 mg PO Q6HR PRN 07/06/22 07/06/22 History Sennosides [Senokot] 8.6 mg PO BID PRN 07/06/22 07/06/22 History bisacodyL [Dulcolax] 10 mg RECTAL Q3D PRN 07/06/22 07/06/22 History busPIRone HCl [Buspar] 10 mg PO BID 07/06/22 07/06/22 History predniSONE 10 mg PO DAILY 07/06/22 07/06/22 History Allergies Allergy/AdvReac Type Severity Reaction Status Date / Time Penicillins Allergy Unknown Verified 07/06/22 14:25 Physical Exam Vitals: Vital Signs Temp Pulse Resp BP Pulse Ox 07/06/22 14:00 18 07/06/22 13:21 97.2 F L 110 H 18 139/75 97 Intake and Output 07/06/22 07/06/22 07/06/22 06:59 14:59 22:59 Other: Weight 97.522 kg PHYSICAL EXAMINATION: Patient is lying in the bed. Lethargic and drowsy. Able to open her eyes. Does not communicate. HEENT: Normocephalic. Neck is supple. Pupils reactive. Nostrils clear. Oral cavity is moist. Neck reveals no JVD, carotid bruits, or thyromegaly. CHEST EXAMINATION: Trachea is central. Symmetrical expansion. Bilateral diminished sounds. Scattered rhonchi.. CARDIAC: Normal S1, S2 with no gallops. No murmurs ABDOMEN: Soft. Bowel sounds present. Nontender. No organomegaly. No abdominal bruits. Extremities: reveal no edema. No clubbing or cyanosis Neurologically obtunded. No gross focal deficits noted Skin: No rash or skin lesions. Psychiatric: Could not be assessed completely. Musculoskeletal: No joint swelling or deformity. Results CBC & Chem 7: 07/06/22 13:45 07/06/22 13:45 Labs: Abnormal Lab Results - Last 24 Hours (Table) 07/06/22 07/06/22 07/06/22 Range/Units 13:45 13:45 14:54 MCHC 30.2 L (31.0-37.0) g/dL Neutrophils # 7.9 H (1.3-7.7) k/uL VBG pCO2 65 H (37-51) mmHg VBG HCO3 41 H (24-28) mmol/L Chloride 90 L (98-107) mmol/L Carbon Dioxide 42 H* (22-30) mmol/L BUN 22 H (7-17) mg/dL AST 42 H (14-36) U/L Urine Appearance (Clear) Urine Protein (Negative) Urine Ketones (Negative) Urine Bacteria (None) /hpf Urine Mucus (None) /hpf Urine Opiates Screen (NotDetected) U Benzodiazepines Scrn (NotDetected) 07/06/22 07/06/22 Range/Units 15:27 15:27 MCHC (31.0-37.0) g/dL Neutrophils # (1.3-7.7) k/uL VBG pCO2 (37-51) mmHg VBG HCO3 (24-28) mmol/L Chloride (98-107) mmol/L Carbon Dioxide (22-30) mmol/L BUN (7-17) mg/dL AST (14-36) U/L Urine Appearance Cloudy H (Clear) Urine Protein 1+ H (Negative) Urine Ketones Trace H (Negative) Urine Bacteria Rare H (None) /hpf Urine Mucus Occasional H (None) /hpf Urine Opiates Screen Detected H (NotDetected) U Benzodiazepines Scrn Detected H (NotDetected) Assessment and Plan Assessment: Acute metabolic and toxic encephalopathy Unresponsive on admission possible morphine overdose suspected Chronic hypoxic and hypercapnic respiratory failure secondary COPD End-stage COPD currently on under hospice care. Currently some day smoker Hypertension Hyperlipidemia Plan: Patient recorded on accessible mentation DuoNebs as needed and will be continued on comfort measures. Hospice care service was consulted. Patient will be transferred to hospice care. Time with Patient: Greater than 30
== END 2022-07-06 16:00 | disposition other institution (70) ==
LOC: EC 13:21
DX: Z51.5 Encounter for palliative care (principal); J44.9 Chronic obstructive pulmonary disease, unspecified; E78.5 Hyperlipidemia, unspecified; I10 Essential (primary) hypertension; F17.200 Nicotine dependence, unspecified, uncomplicated; Z88.0 Allergy status to penicillin; Z79.899 Other long term (current) drug therapy
CPT/HCPCS: 36415; 71046; 80053; 80306; 81001; 82140; 82803; 84484; 85025; 85610; 85730; 93005; 99291

== ENCOUNTER 2022-07-06 15:41 | Inpatient (IN) | payer MEDICAID, MEDICARE ==
[2022-07-06] MEDS ORDERED: ATROPINE OPHTH SOLN 1% 5ML BTL SUBLINGUAL PRN (15:43)
[2022-07-06] MEDS ORDERED: ONDANSETRON 4 MG/2 ML VIAL IVP PRN (15:43)
[2022-07-06] MEDS ORDERED: LORazepam 2 MG/ML INJ IV PRN (15:43)
[2022-07-06] MEDS: MORPHINE SULFATE 2 MG/ML SYRINGE IV PRN (22:37)
[2022-07-07] MEDS: MORPHINE SULFATE 2 MG/ML SYRINGE IV PRN ×2 (02:59→09:49)
[2022-07-07 07:30] VITALS: BP 111/70; PULSE 118; TEMP 100.1
[2022-07-07] MEDS: MORPHINE SULFATE (100 MG/2 ML) 100 MG in SODIUM CHLORIDE 0.9% 100 ML IV SCH ×2 (10:21→19:16)
[2022-07-07] MEDS: GLYCOPYRROLATE 0.2 MG/ML 2 ML VIAL IVP SCH ×2 (13:37→16:59)
--- NOTE | 2022-07-07 15:47 | P.HPIM ---
History of Present Illness H&P Date: 07/07/22 Patient is a 82-year-old female with a known history of end-stage COPD currently on oxygen at 3 L via nasal cannula, was at hospice care facility and was recently discharged home, hypertension, hyperlipidemia, currently some day smoker was brought to the hospital as she found unresponsive at home. Found to have morphine pill bottle by her side by EMS. Was given a dose of Narcan. On arrival patient was on 4 L oxygen via nasal cannula. Not in any respiratory distress. Able to open her eyes but could not provide any history. Hospice care service was consulted patient is being transferred to hospice care. Laboratory data showed WBC 10.4 hemoglobin 11.8 and platelets 358 Sodium 141 potassium 3.6 chloride 90 bicarb is 42 BUN 22 and creatinine 1.04 Urinalysis is negative for infection UDS is positive for opiates and benzodiazepines. Review of Systems Complete review of systems could not be obtained from the patient. Past Medical History Past Medical History: Asthma, COPD, Hyperlipidemia, Hypertension Additional Past Medical History / Comment(s): Home oxygen 2-3L/NC, Glaucoma, optic neuritis, diverticulosis History of Any Multi-Drug Resistant Organisms: None Reported Past Surgical History: Orthopedic Surgery Additional Past Surgical History / Comment(s): bilateral knee ,abcess in colon Past Anesthesia/Blood Transfusion Reactions: No Reported Reaction Past Psychological History: No Psychological Hx Reported Smoking Status: Current some day smoker Past Alcohol Use History: None Reported Past Drug Use History: None Reported - Past Family History Father Family Medical History: Cancer, Hypertension Additional Family Medical History / Comment(s): Father had lung cancer with lobectomy. She was a smoker Mother Family Medical History: Diabetes Mellitus, Hypertension Medications and Allergies PHYSICAL EXAMINATION: Patient is lying in the bed. Lethargic and drowsy. Able to open her eyes. Does not communicate. HEENT: Normocephalic. Neck is supple. Pupils reactive. Nostrils clear. Oral cavity is moist. Neck reveals no JVD, carotid bruits, or thyromegaly. CHEST EXAMINATION: Trachea is central. Symmetrical expansion. Bilateral diminished sounds. Scattered rhonchi.. CARDIAC: Normal S1, S2 with no gallops. No murmurs ABDOMEN: Soft. Bowel sounds present. Nontender. No organomegaly. No abdominal bruits. Extremities: reveal no edema. No clubbing or cyanosis Neurologically obtunded. No gross focal deficits noted Skin: No rash or skin lesions. Psychiatric: Could not be assessed completely. Musculoskeletal: No joint swelling or deformity. Assessment: Acute metabolic and toxic encephalopathy Unresponsive on admission possible morphine overdose suspected Chronic hypoxic and hypercapnic respiratory failure secondary COPD End-stage COPD currently on under hospice care. Currently some day smoker Hypertension Hyperlipidemia Plan: Patient recorded on accessible mentation DuoNebs as needed and will be continued on comfort measures. Hospice care service was consulted. Patient will be transferred to hospice care. Past Medical History Past Medical History: Asthma, COPD, Hyperlipidemia, Hypertension Additional Past Medical History / Comment(s): Home oxygen 2-3L/NC, Glaucoma, optic neuritis, diverticulosis History of Any Multi-Drug Resistant Organisms: None Reported Past Surgical History: Orthopedic Surgery Additional Past Surgical History / Comment(s): bilateral knee ,abcess in colon Past Anesthesia/Blood Transfusion Reactions: No Reported Reaction Past Psychological History: No Psychological Hx Reported Additional Psychological History / Comment(s): Pt resides with her spouse. She uses a rolling walker. She has home oxygen/nebulizer. She drives. Smoking Status: Current some day smoker Past Alcohol Use History: None Reported Additional Past Alcohol Use History / Comment(s): Pt started smoking in 1957 and is a ppd smoker. Past Drug Use History: None Reported - Past Family History Father Family Medical History: Cancer, Hypertension Additional Family Medical History / Comment(s): Father had lung cancer with lobectomy. She was a smoker Mother Family Medical History: Diabetes Mellitus, Hypertension Medications and Allergies Home Medications Medication Instructions Recorded Confirmed Type Ipratropium-Albuterol Nebulize 3 ml INHALATION RT-QID PRN 10/09/19 07/06/22 History [Duoneb 0.5 mg-3 mg/3 ml Soln] ALPRAZolam [Xanax] 0.5 mg PO TID 07/06/22 07/06/22 History Acetaminophen Tab [Tylenol] 650 mg PO DAILY 07/06/22 07/06/22 History Furosemide [Lasix] 40 mg PO DAILY 07/06/22 07/06/22 History Haloperidol Oral Soln [Haldol Oral 2 mg PO Q6H PRN 07/06/22 07/06/22 History Soln] Hyoscyamine Sulfate [Hyoscyamine 0.125 mg SL Q4H PRN 07/06/22 07/06/22 History Sulfate SL] LORazepam [Ativan] 0.5 mg PO Q4H PRN 07/06/22 07/06/22 History Latanoprost [Latanoprost 0.005%] 1 drop BOTH EYES HS 07/06/22 07/06/22 History MORPHINE ORAL TIMOTHY CONC 20mg/mL 10 mg PO Q4H PRN 07/06/22 07/06/22 History [Roxanol Oral Soln Conc 20MG/ML] Metoprolol Tartrate [Lopressor] 12.5 mg PO BID 07/06/22 07/06/22 History Ondansetron Odt [Zofran Odt] 4 mg PO Q6HR PRN 07/06/22 07/06/22 History Sennosides [Senokot] 8.6 mg PO BID PRN 07/06/22 07/06/22 History bisacodyL [Dulcolax] 10 mg RECTAL Q3D PRN 07/06/22 07/06/22 History busPIRone HCl [Buspar] 10 mg PO BID 07/06/22 07/06/22 History predniSONE 10 mg PO DAILY 07/06/22 07/06/22 History Allergies Allergy/AdvReac Type Severity Reaction Status Date / Time Penicillins Allergy Unknown Verified 07/06/22 14:25 Physical Exam Vitals: Vital Signs Temp Pulse Pulse Resp BP BP Pulse Ox 07/07/22 07:28 100.1 F H 118 H 49 H 111/70 90 L 07/06/22 21:20 98.1 F 108 H 38 H 138/78 91 L 07/06/22 19:39 98 30 H 128/72 95 07/06/22 19:16 100 18 127/71 94 L Intake and Output 07/06/22 07/07/22 07/07/22 22:59 06:59 14:59 Intake Total 0.75 Output Total 150 Balance -150 0.75 Intake: Intake, IV Titration 0.75 Amount Morphine Sulfate (100 mg/ 0.75 2 ml) 100 mg In Sodium Chloride 0.9% 100 ml @ 1 MG/HR 1.02 mls/hr IV . Q24H [facility] Rx#:[id number] Output: Urine 150 Other: Weight 81.8 kg 81.8 kg
[2022-07-07] MEDS: LORazepam 1 MG/0.5 ML VIAL IV PRN ×2 (17:41→20:34)
[2022-07-07 22:19] VITALS: RESP 18
[2022-07-08] MEDS: GLYCOPYRROLATE 0.2 MG/ML 2 ML VIAL IVP SCH (00:07)
--- NOTE | 2022-07-08 04:55 | P.PN ---
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 Found to have morphine pill bottle by her side by EMS. Was given a dose of Narcan. On arrival patient was on 4 L oxygen via nasal cannula. Not in any respiratory distress. Able to open her eyes but could not provide any history. Hospice care service was consulted patient is being transferred to hospice care. Laboratory data showed WBC 10.4 hemoglobin 11.8 and platelets 358 Sodium 141 potassium 3.6 chloride 90 bicarb is 42 BUN 22 and creatinine 1.04 Urinalysis is negative for infection UDS is positive for opiates and benzodiazepines. 07/07/2022 Patient is seen and evaluated under [facility] hospice services currently maintained on morphine drip with comfort measures only. No signs of distress and patient is unresponsive. Will continue to follow. Afebrile. Review of systems: Unable to obtain Active Medications Atropine Sulfate (Atropine Ophth Soln 1% 5ml Btl) 2 drops SUBLINGUAL Q4HR PRN PRN Reason: Excess Secretions Glycopyrrolate (Glycopyrrolate 0.2 Mg/Ml 2 Ml Vial) 0.2 mg IVP Q6HR GAUDENCIO Last Admin: 07/07/22 13:37 Dose: 0.2 mg Morphine Sulfate 100 mg/ (Sodium Chloride) 102 mls @ 1.02 mls/hr IV .Q24H GAUDENCIO; Protocol Last Titration: 07/07/22 15:18 Dose: 2.94 mg/hr, 3 mls/hr Lorazepam (Lorazepam 1 Mg/0.5 Ml Vial) 1 mg IV Q2HR PRN PRN Reason: Anxiety Morphine Sulfate (Morphine Sulfate 2 Mg/Ml Syringe) 2 mg IV Q1H PRN PRN Reason: Breakthrough Pain Last Admin: 07/07/22 09:49 Dose: 2 mg Ondansetron HCl (Ondansetron 4 Mg/2 Ml Vial) 4 mg IVP Q8HR PRN PRN Reason: Nausea/emesis Physical exam: Patient is lying in the bed. Lethargic and drowsy unarousable. . Does not communicate. HEENT: Normocephalic. Neck is supple. Pupils reactive. Nostrils clear. Oral cavity is moist. Neck reveals no JVD, carotid bruits, or thyromegaly. CHEST EXAMINATION: Trachea is central. Symmetrical expansion. Bilateral diminished sounds. Scattered rhonchi and crackles with gurgling noted.. CARDIAC: Normal S1, S2 with no gallops. No murmurs ABDOMEN: Soft. Bowel sounds present. Nontender. No organomegaly. No abdominal bruits. Extremities: reveal no edema. No clubbing or cyanosis Neurologically obtunded. No gross focal deficits noted Skin: No rash or skin lesions. Psychiatric: Could not be assessed completely. Musculoskeletal: No joint swelling or deformity. Assessment: Acute metabolic and toxic encephalopathy Unresponsive on admission possible morphine overdose suspected Chronic hypoxic and hypercapnic respiratory failure secondary COPD End-stage COPD currently on under hospice care. Currently some day smoker Hypertension Hyperlipidemia No code Plan: Patient is currently on comfort measures only morphine drip with [facility] following. Will continue to follow along during hospitalization. Patient with some gurgling and increased respirations on exam recommending increasing the morphine drip and giving atropine and this was discussed with nursing staff. Patient is also continued on 4 L via nasal cannula for comfort. Overall prognosis remains poor. The impression and plan of care has been dictated by Kirsten Byrd, Nurse Practitioner as directed. Dr. Juliane MD I have performed a history and examination and MDM of this patient, discussed the same with the dictator, and agree with the dictator's assessment and plan as written ,documented as a scribe. Based on total visit time, I have performed more than 50% of the visit. Objective - Vital Signs Vital signs: Vital Signs Temp 100.1 F H 07/07/22 07:28 Pulse 118 H 07/07/22 07:28 Resp 49 H 07/07/22 07:28 BP 111/70 07/07/22 07:28 Pulse Ox 90 L 07/07/22 07:28 FiO2 Intake & Output 07/06/22 07/07/22 07/07/22 18:59 06:59 18:59 Intake Total 0.75 Output Total 150 Balance -150 0.75 Weight 81.8 kg 81.8 kg Intake: Intake, IV Titration 0.75 Amount Morphine Sulfate (100 mg/ 0.75 2 ml) 100 mg In Sodium Chloride 0.9% 100 ml @ 1 MG/HR 1.02 mls/hr IV . Q24H [facility] Rx#:[id number] Output: Urine 150
--- NOTE | 2022-07-10 10:23 | P.DS ---
Providers Date of admission: 07/06/22 15:43 Expected date of discharge: 07/08/22 Attending physician: Javier Cardozo Primary care physician: Femi Blake [facility] Course: Preliminary cause of End-stage chronic obstructive pulmonary disease Final diagnosis Acute metabolic and toxic encephalopathy Unresponsive on admission possible morphine overdose suspected Chronic hypoxic and hypercapnic respiratory failure secondary COPD End-stage COPD currently on under hospice care. Currently some day smoker Hypertension Hyperlipidemia No code Discharge disposition Patient has . According to nursing documentation time of was 034 on 07/08/2022 Hospital course This is an 82-year-old female was recently admitted with end-stage COPD and placed on hospice. Apparently patient was discharged recently home and hospice care facility although found unresponsive with concerns for a possible morphine pill bottle that was found at the bedside by EMS. Patient was brought to the hospital and admitted for further evaluation. Patient remained unresponsive in [facility] following and patient was placed on inpatient status morphine drip with comfort measures only. Please refer to previous dictations for furt her HPI. Patient has at 0345 on 07/08/2022 The impression and plan of care has been dictated by Kirsten Byrd, Nurse Practitioner as directed. Dr. Juliane MD I have performed a history and examination and MDM of this patient, discussed the same with the dictator, and agree with the dictator's assessment and plan as written ,documented as a scribe. Based on total visit time, I have performed more than 50% of the visit. Patient Condition at Discharge: Poor Plan - Discharge Summary New Discharge Prescriptions: No Action Ipratropium-Albuterol Nebulize [Duoneb 0.5 mg-3 mg/3 ml Soln] 3 ml INHALATION RT-QID PRN PRN Reason: Shortness Of Breath Ondansetron Odt [Zofran Odt] 4 mg PO Q6HR PRN PRN Reason: Nausea Haloperidol Oral Soln [Haldol Oral Soln] 2 mg PO Q6H PRN PRN Reason: Agitation Hyoscyamine Sulfate [Hyoscyamine Sulfate SL] 0.125 mg SL Q4H PRN PRN Reason: Secretions bisacodyL [Dulcolax] 10 mg RECTAL Q3D PRN PRN Reason: Constipation LORazepam [Ativan] 0.5 mg PO Q4H PRN PRN Reason: Anxiety busPIRone HCl [Buspar] 10 mg PO BID Furosemide [Lasix] 40 mg PO DAILY Latanoprost [Latanoprost 0.005%] 1 drop BOTH EYES HS MORPHINE ORAL TIMOTHY CONC 20mg/mL [Roxanol Oral Soln Conc 20MG/ML] 10 mg PO Q4H PRN PRN Reason: pain/dyspnea predniSONE 10 mg PO DAILY ALPRAZolam [Xanax] 0.5 mg PO TID Metoprolol Tartrate [Lopressor] 12.5 mg PO BID Sennosides [Senokot] 8.6 mg PO BID PRN PRN Reason: Constipation Acetaminophen Tab [Tylenol] 650 mg PO DAILY Discharge Medication List Ipratropium-Albuterol Nebulize [Duoneb 0.5 mg-3 mg/3 ml Soln] 3 ml INHALATION RT-QID PRN 10/09/19 [History] ALPRAZolam [Xanax] 0.5 mg PO TID 07/06/22 [History] Acetaminophen Tab [Tylenol] 650 mg PO DAILY 07/06/22 [History] Furosemide [Lasix] 40 mg PO DAILY 07/06/22 [History] Haloperidol Oral Soln [Haldol Oral Soln] 2 mg PO Q6H PRN 07/06/22 [History] Hyoscyamine Sulfate [Hyoscyamine Sulfate SL] 0.125 mg SL Q4H PRN 07/06/22 [History] LORazepam [Ativan] 0.5 mg PO Q4H PRN 07/06/22 [History] Latanoprost [Latanoprost 0.005%] 1 drop BOTH EYES HS 07/06/22 [History] MORPHINE ORAL TIMOTHY CONC 20mg/mL [Roxanol Oral Soln Conc 20MG/ML] 10 mg PO Q4H PRN 07/06/22 [History] Metoprolol Tartrate [Lopressor] 12.5 mg PO BID 07/06/22 [History] Ondansetron Odt [Zofran Odt] 4 mg PO Q6HR PRN 07/06/22 [History] Sennosides [Senokot] 8.6 mg PO BID PRN 07/06/22 [History] bisacodyL [Dulcolax] 10 mg RECTAL Q3D PRN 07/06/22 [History] busPIRone HCl [Buspar] 10 mg PO BID 07/06/22 [History] predniSONE 10 mg PO DAILY 07/06/22 [History] Follow up Appointment(s)/Referral(s): Femi Lozano DO [Primary Care Provider] - 1 Week Discharge Disposition: - Preliminary Cause of Preliminary Cause of : End-stage chronic obstructive pulmonary disease
== END 2022-07-08 05:38 | disposition expired | DRG 951 ==
LOC: EC 15:41 → 4SSUR 15:43
PROVIDERS: ADMIT Internal Medicine; ATTEND Internal Medicine
DX: Z51.5 Encounter for palliative care (principal); G92.8 Other toxic encephalopathy; J96.12 Chronic respiratory failure with hypercapnia; J96.11 Chronic respiratory failure with hypoxia; H46.9 Unspecified optic neuritis; T40.2X1A Poisoning by other opioids, accidental (unintentional), initial encounter; J44.9 Chronic obstructive pulmonary disease, unspecified; E78.5 Hyperlipidemia, unspecified; Z66 Do not resuscitate; I10 Essential (primary) hypertension; H40.9 Unspecified glaucoma; K57.90 Diverticulosis of intestine, part unspecified, without perforation or abscess without bleeding; F17.210 Nicotine dependence, cigarettes, uncomplicated; Z79.899 Other long term (current) drug therapy; Z88.0 Allergy status to penicillin; Y92.008 Other place in unspecified non-institutional (private) residence as the place of occurrence of the external cause